=== PATIENT | male | born 1955 | race Caucasian/White ===

== ENCOUNTER 2020-02-08 17:15 | Outpatient (REF) | payer OTHER, SELFPAY ==
--- NOTE | 2020-02-08 | CT_ITS ---
EXAMINATION: CT CHEST SCREENING CLINICAL INFORMATION: Current smoker for greater than 40 years. COMPARISON: None. TECHNIQUE: Multidetector volumetric CT imaging of the chest is performed without contrast using low dose technique. Additional 2D coronal and sagittal reformatted images and axial 3D maximum intensity projection (MIP) images are generated on the CT workstation. This CT examination was performed using dose optimization techniques as appropriate, variously including the following: *Automated exposure control *Adjustment of mA and/or kV according to patient size (this includes techniques or standardized protocols for targeted exams where dose is matched to indication/reason for exam; i.e. extremities or head) *Use of iterative reconstruction technique DLP: 54 mGy-cm FINDINGS: LUNGS: The lungs are well expanded and clear of acute pneumonic process. There is a 4 mm nodule left lower lobe lateral basal segment image 461/6. No additional pulmonary nodules, mass or consolidation seen. MEDIASTINUM: The thyroid lobes are symmetrical and normal. The central trachea and the bronchi are widely patent. Heart size and the great vessels are normal caliber. There are small shotty lymph nodes in the mediastinum. Trace coronary artery calcifications are present. No pericardial effusion seen. PLEURA: There is no pleural effusion, mass or thickening. AXILLA: No lymphadenopathy. UPPER ABDOMEN: Visualized liver, spleen, pancreas and bilateral adrenal glands are unremarkable. OSSEOUS STRUCTURES: No lytic or sclerotic process seen. CT/CT lung screening IMPRESSION: 4 mm nodule left lower lobe. ASSESSMENT: Lung-RADS category 2: Benign RECOMMENDATION: Low dose annual CT chest.
== END 2020-02-08 17:16 | disposition home or self-care (01) ==
LOC: HO.CT 17:15
PROVIDERS: PCP Internal Medicine; Visit Provider Surgery
DX: F17.210 Nicotine dependence, cigarettes, uncomplicated (principal); Z71.6 Tobacco abuse counseling
CPT/HCPCS: 71250

== ENCOUNTER 2020-02-16 | Outpatient (REF) | payer OTHER, SELFPAY ==
[2020-02-16 17:59] LABS: MANUAL DIFF FLAG NO
[2020-02-16 18:01] LABS: Basophils Absolute Auto 0.1 X10*3/uL (0.0-0.2); Basophils Percent Auto 0.9 % (0-2); Eosinophils Absolute Auto 0.3 X10*3/uL (0.0-0.4); Eosinophils Percent Auto 3.1 % (0-4); Hematocrit 41.9 % (42-52); Hemoglobin 13.3 g/dl (14.0-18.0); Imm Gran Abs Auto 0.02 X10*3/uL (0.00-0.03); Imm Gran Pct Auto 0.2 % (0.0-0.4); Lymphocytes Absolute Auto 4.3 X10*3/uL (1.2-4.9); Lymphocytes Percent Auto 40.7 % (20-40); Mean Corpuscular HGB Conc 31.7 g/dl (31.0-36.0); Mean Corpuscular Volume 94.6 fL (80-98); Mean Platelet Volume 9.8 fL (9.4-12.4); Monocytes Absolute Auto 1.2 X10*3/uL (0.1-1.2); Monocytes Percent Auto 11.3 % (2-11); Neutrophils Absolute Auto 4.6 X10*3/uL (2.0-8.3); Neutrophils Percent Auto 43.8 % (45-73); Platelet Count 248 X10*3/uL (160-400); Red Blood Count 4.43 X10*6/uL (4.60-5.80); Red Cell Distribution Width 13.8 % (11.0-16.0); White Blood Count 10.6 X10*3/uL (4.8-10.8)
[2020-02-16 18:22] LABS: Alanine Aminotransferase 25 U/L (0-40); Alkaline Phosphatase 102 U/L (39-117); Anion Gap 14 (12-20); Aspartate Amino Transferase 33 U/L (5-37); Bilirubin Total 0.4 mg/dL (0.0-1.0); Blood Urea Nitrogen 31 mg/dL (9-16); Calcium 8.8 mg/dL (8.4-10.2); Carbon Dioxide 32 mmol/L (22-29); Chloride 103 mmol/L (96-108); Cholesterol 149 mg/dL; Estimated Glomerular Filt Rate 38; Glucose Random 112 mg/dL (60-115); HDL Cholesterol 62 mg/dL; LDL Cholesterol Calculated 78 mg/dl; Potassium 4.8 mmol/l (3.3-5.1); Sodium 144 mmol/L (135-145); Total Protein 6.4 g/dL (6.5-8.0); Triglycerides 48 mg/dL
[2020-02-16 18:43] LABS: Prostate Specific Antigen 0.97 ng/mL (<0.05-4.0)
== END 2020-02-16 10:53 ==
LOC: HO.LAB
PROVIDERS: PCP Internal Medicine; Visit Provider Internal Medicine
DX: Z00.00 Encounter for general adult medical examination without abnormal findings (principal); R91.1 Solitary pulmonary nodule; Z13.31 Encounter for screening for depression; Z86.010 Personal history of colon polyps; Z72.0 Tobacco use
CPT/HCPCS: 36415; 80053; 80061; 84153; 85025

== ENCOUNTER 2020-04-20 15:45 | Outpatient (REF) | payer OTHER, SELFPAY ==
[2020-04-20 16:35] LABS: Hematocrit 40.6 % (42-52); Hemoglobin 13.4 g/dl (14.0-18.0); Mean Corpuscular Hemoglobin 30.4 pg (27.0-33.0); Mean Corpuscular Volume 92.1 fL (80-98); Mean Platelet Volume 9.8 fL (9.4-12.4); Platelet Count 229 X10*3/uL (160-400); Red Blood Count 4.41 X10*6/uL (4.60-5.80); White Blood Count 10.8 X10*3/uL (4.8-10.8)
[2020-04-20 16:44] LABS: Prothrombin Time 11.8 SEC (10.8-13.0)
[2020-04-20 16:53] LABS: Glucose Urine UA NEG (NEG); Leukocyte Esterase Urine NEG (NEG); Nitrite Urine NEG (NEG); Specific Gravity - Urine 1.025 (1.005-1.025); Urine Blood NEG (NEG); Urine Ketones NEG (NEG); Urine Protein NEG (NEG-TRACE)
[2020-04-20 16:56] LABS: Anion Gap 11 (12-20); Blood Urea Nitrogen 27 mg/dL (9-16); Calcium 8.6 mg/dL (8.4-10.2); Carbon Dioxide 31 mmol/L (22-29); Chloride 102 mmol/L (96-108); Estimated Glomerular Filt Rate 53; Potassium 4.7 mmol/L (3.3-5.1); Sodium 139 mmol/L (135-145); Uric Acid 5.3 mg/dL (3.4-7.0)
[2020-04-20 17:01] LABS: Appearance Urine CLEAR; Color Urine YELLOW
[2020-04-20 17:18] LABS: Prostate Specific Antigen 0.52 ng/mL (<0.05-4.0)
[2020-04-20 17:48] LABS: Creatinine Urine 124.66 mg/dL; Total Protein Urine Random < 7 mg/dL (<12)
[2020-04-21 11:42] LABS: Alpha Fetoprotein 1.3 ng/mL (<6.1); Complement C3 90 mg/dL (82-185)
[2020-04-21 13:16] LABS: Anti Glomerular Basement Memb <1.0 AI; Myeloperoxidase Antibody <1.0 AI; Prot Elec - Albumin 4.1 g/dL (3.8-4.8); Prot Elec - Alpha1 0.2 g/dL (0.2-0.3); Prot Elec - Alpha2 0.7 g/dL (0.5-0.9); Prot Elec - Beta 1 0.4 g/dL (0.4-0.6); Prot Elec - Beta 2 0.3 g/dL (0.2-0.5); Prot Elec - Gamma 1.1 g/dL (0.8-1.7); Prot Elec - Total Protein 6.7 g/dL (6.1-8.1); Proteinase 3 PR3 Antibodies <1.0 AI
[2020-04-22 08:12] LABS: HBS Num1 0.25 mIU/mL (0-7.99); HIV AB/AG Nonreactive (Nonreactive); HIV Num 1 0.07 S/CO (0.00-0.99); ~Hepatitis B Surface Antibody NONREACTIVE (Nonreactive)
[2020-04-22 08:50] LABS: HBsAGNum1 0.14 S/CO (0.00-0.99); Hepatitis B Surface Antigen Negative (Negative)
[2020-04-22 13:07] LABS: PTHI 72 pg/mL (14-64)
[2020-04-22 22:17] LABS: HCV Log PCR <1.18 NOT DETECTED Log IU/mL (NOT DETECTED); HepC Viral Load <15 NOT DETECTED IU/mL (NOT DETECTED)
[2020-04-23 15:47] LABS: Kappa, Serum 297 mg/dL (176-443); Kappa/Lambda Ratio, Serum 2.18 (1.29-2.55); Lambda, Serum 136 mg/dL (91-240)
== END 2020-04-20 15:46 | disposition home or self-care (01) ==
LOC: HO.LAB 15:45
PROVIDERS: Absent Provider Internal Medicine Nephrology; PCP Internal Medicine; Referring Provider Internal Medicine Nephrology; Visit Provider Internal Medicine
DX: N17.9 Acute kidney failure, unspecified (principal); N18.31 Chronic kidney disease, stage 3a
CPT/HCPCS: 36415; 80051; 81003; 82105; 82306; 82310; 82550; 82565; 83520; 83883; 83970; 84100; 84153; 84155; 84156; 84165; 84520; 84550; 85027; 85610; 86021; 86160; 86706; 87340; 87389; 87522

== ENCOUNTER 2020-11-17 17:03 | Outpatient (REF) | payer OTHER, SELFPAY ==
[2020-11-17 18:24] LABS: Anion Gap 11 (12-20); Blood Urea Nitrogen 23 mg/dL (9-16); Carbon Dioxide 31 mmol/L (22-29); Chloride 104 mmol/L (96-108); Estimated Glomerular Filt Rate 49; Potassium 4.6 mmol/L (3.3-5.1); Sodium 141 mmol/L (135-145)
== END 2020-11-17 17:04 | disposition home or self-care (01) ==
LOC: HO.LAB 17:03
PROVIDERS: PCP Internal Medicine; Visit Provider Internal Medicine Nephrology
DX: N18.31 Chronic kidney disease, stage 3a (principal)
CPT/HCPCS: 36415; 80051; 82310; 82565; 84520

== ENCOUNTER 2021-05-13 08:35 | Outpatient (REF) | payer OTHER, SELFPAY ==
[2021-05-13 08:52] LABS: MANUAL DIFF FLAG NO
[2021-05-13 09:42] LABS: Basophils Absolute Auto 0.1 X10*3/uL (0.0-0.2); Basophils Percent Auto 0.8 % (0-2); Eosinophils Absolute Auto 0.4 X10*3/uL (0.0-0.4); Eosinophils Percent Auto 4.3 % (0-4); Hematocrit 43.8 % (42.0-52.0); Imm Gran Abs Auto 0.03 X10*3/uL (0.00-0.03); Imm Gran Pct Auto 0.3 % (0.0-0.4); Lymphocytes Absolute Auto 2.5 X10*3/uL (1.2-4.9); Lymphocytes Percent Auto 28.6 % (20-40); Mean Corpuscular Hemoglobin 29.9 pg (27.0-33.0); Mean Corpuscular Volume 93.4 fL (80.0-98.0); Mean Platelet Volume 9.6 fL (9.4-12.4); Monocytes Absolute Auto 0.9 X10*3/uL (0.1-1.2); Monocytes Percent Auto 10.3 % (2-11); Neutrophils Absolute Auto 4.8 x10*3/uL (2.0-8.3); Neutrophils Percent Auto 55.7 % (45-73); Platelet Count 259 X10*3/uL (160-400); Red Blood Count 4.69 X10*6/uL (4.60-5.80); Red Cell Distribution Width 13.4 % (11.0-16.0); White Blood Count 8.7 X10*3/uL (4.8-10.8)
[2021-05-13 09:51] LABS: Prothrombin Time 11.7 SEC (9.9-13.0)
[2021-05-13 10:01] LABS: Alanine Aminotransferase 26 U/L (0-40); Albumin Level 4.3 g/dL (3.5-5.0); Alkaline Phosphatase 92 U/L (39-117); Aspartate Amino Transferase 21 U/L (5-37); Bilirubin Direct 0.3 mg/dL (0.0-0.5); Bilirubin Total 0.7 mg/dL (0.0-1.0); Total Protein 7.3 g/dL (6.5-8.0)
[2021-05-17 12:11] LABS: HCV Log PCR <1.18 NOT DETECTED Log IU/mL (NOT DETECTED); HepC Viral Load <15 NOT DETECTED IU/mL (NOT DETECTED)
[2021-05-17 12:22] LABS: Alpha Fetoprotein 1.4 ng/mL (<6.1)
[2021-05-19 18:32] LABS: FIB-ALT 21 U/L (9-46); FIB-Alpha-2-Macroglobulin 282 mg/dL (106-279); FIB-Apolipoprotein A1 161 mg/dL (94-176); FIB-GGT 11 U/L (3-70); FIB-Haptoglobin 201 mg/dL (43-212); FIB-Total Bilirubin 0.7 mg/dL (0.2-1.2); Liver Fibrosis Score 0.32; Liver Fibrosis Stage F1-F2; Nec Inflam Act Grade A0; Nec Inflam Act Score 0.09
== END 2021-05-13 08:36 | disposition home or self-care (01) ==
LOC: HO.LAB 08:35
PROVIDERS: Absent Provider Internal Medicine Nephrology; PCP Internal Medicine; Visit Provider Internal Medicine
DX: N17.9 Acute kidney failure, unspecified (principal); N18.31 Chronic kidney disease, stage 3a; K74.00 Hepatic fibrosis, unspecified; Z86.19 Personal history of other infectious and parasitic diseases
CPT/HCPCS: 36415; 80076; 81596; 82105; 85025; 85610; 87522

== ENCOUNTER 2021-05-25 14:50 | Outpatient (REF) | payer OTHER, SELFPAY | END 2021-05-25 14:51 | disposition home or self-care (01) | LOC: HO.US 14:50 | PROVIDERS: Visit Provider Internal Medicine | DX: Z13.89 Encounter for screening for other disorder (principal) ==

== ENCOUNTER 2021-05-26 08:21 | Outpatient (REF) | payer OTHER, SELFPAY ==
--- NOTE | ~2021-05-26 | US_ITS ---
EXAMINATION: US COMPLETE ABDOMEN WITH LIVER ELASTOGRAPHY CLINICAL INFORMATION: Hepatitis C. Liver fibrosis. COMPARISON: Previous abdominal ultrasound January 2015 TECHNIQUE: Real-time imaging of the abdominal viscera. Noninvasive ultrasound liver fibrosis assessment is performed using Edi ElastPQ point quantification shear wave elastography (2D-SWE) with a C5-2 MHz transducer. Multiple elastography samples are obtained. FINDINGS: PANCREAS: The visualized pancreatic head and body are normal in appearance. The remainder of the pancreas is obscured from visualization by the overlying bowel gas. ABDOMINAL AORTA: The proximal, middle, and distal aortic segments are normal in caliber. INFERIOR VENA CAVA: Visualized portions are normal. LIVER: Normal. The liver demonstrates normal size, contour and echogenicity. No focal lesion or intrahepatic biliary duct dilatation. The right lobe measures 15 cm in length. The left lobe measures 8.5 cm in length. Portal flow is normal/hepatopedal Shear wave liver elastography median stiffness is 1.5 m/s (reference: normal median stiffness is 1.3 m/s or less). IQR/median stiffness to assess sampling precision is 0.09 (reference: good quality data set is IQR/median stiffness of 0.15 or less). GALLBLADDER: Normal. The gallbladder is physiologically distended without evidence of stones, sludge, polyps, wall thickening or pericholecystic fluid. COMMON BILE DUCT: Normal in caliber measuring 0.2 cm in diameter. RIGHT KIDNEY: Normal. No hydronephrosis. No renal calculi or focal parenchymal lesions. The kidney measures 10 cm in maximum dimension. LEFT KIDNEY: There is a 1 cm cyst in the upper pole. No hydronephrosis. No renal calculi or focal parenchymal lesions. The kidney measures 10.7 cm in maximum dimension. SPLEEN: Normal. The spleen measures 7.6 cm in maximum dimension. FREE FLUID: None. US/US abdomen comp w elastography IMPRESSION: 1. Impression normal appearing liver. Small left renal cyst. Limited visualization of the tail of the pancreas. 2. Liver elastography: Adequate liver sampling. In the absence of other known clinical signs, rules out compensated advanced chronic liver disease. REFERENCE: Society of Radiologists in Ultrasound Liver Stiffness Thresholds (2020): LIVER STIFFNESS THRESHOLDS: *Liver Stiffness equal or less than 1.3 m/s: High probability of being normal. *Liver Stiffness less than 1.7 m/s: In the absence of other known clinical signs, rules out compensated advanced chronic liver disease. *Liver Stiffness 1.7-2.1 m/s: Suggestive of compensated advanced chronic liver disease but need further test for confirmation. *Liver Stiffness over 2.1 m/s: Rules in compensated advanced chronic liver disease. *Liver Stiffness over 2.4 m/s: Suggestive of clinically significant portal hypertension. QUALITY OF DATA SET: *IQR/Median value equal or less than 0.15 implies a quality data set. *IQR/Median value over 0.15 implies a poor quality data set. SIGNIFICANT CHANGE FROM PRIOR EXAM: Significant change if liver stiffness measurement is 10% or greater from prior exam. OTHER CONSIDERATIONS: The stage of liver fibrosis may be overestimated in the setting of acute hepatitis, liver inflammation, elevated liver function tests, hepatic vascular congestion, obstructive cholestasis, non-fasting state, and infiltrative diseases such as amyloidosis and lymphoma. In some patients with NAFLD, the liver stiffness thresholds for compensated advanced chronic liver disease may be lower. In causes other than viral hepatitis and NAFLD, liver stiffness thresholds are not well established.
== END 2021-05-26 08:22 | disposition home or self-care (01) ==
LOC: HO.US 08:21
PROVIDERS: PCP Internal Medicine; Visit Provider Internal Medicine
DX: K74.00 Hepatic fibrosis, unspecified (principal); Z86.19 Personal history of other infectious and parasitic diseases
CPT/HCPCS: 76705; 76981

== ENCOUNTER 2021-08-11 15:22 | Outpatient (REF) | payer OTHER, SELFPAY ==
--- NOTE | ~2021-08-11 | CT_ITS ---
EXAMINATION: CT CHEST SCREENING CLINICAL INFORMATION: Current smoker. 55 pack year history. COMPARISON: Previous chest CT most recent January 2020 TECHNIQUE: Multidetector volumetric CT imaging of the chest is performed without contrast using low dose technique. Additional 2D coronal and sagittal reformatted images and axial 3D maximum intensity projection (MIP) images are generated on the CT workstation. This CT examination was performed using dose optimization techniques as appropriate, variously including the following: *Automated exposure control *Adjustment of mA and/or kV according to patient size (this includes techniques or standardized protocols for targeted exams where dose is matched to indication/reason for exam; i.e. extremities or head) *Use of iterative reconstruction technique DLP: 54 mGy-cm FINDINGS: LUNGS: There is evidence of emphysema. There is a 5 mm left lower lobe nodule axial image 421 series 6 that is stable. There is scarring or subsegmental atelectasis in the right middle lobe and lingula. There are scattered areas of airways disease mild bronchial wall thickening. MEDIASTINUM: There are small mediastinal lymph nodes. No enlarged lymph nodes are seen. There is mild coronary artery calcification. The heart size is normal. No pericardial effusion. Normal caliber thoracic aorta. PLEURA: There is no pleural effusion. No pleural mass or thickening. AXILLA: No lymphadenopathy. UPPER ABDOMEN: Diverticulosis of the colon. OSSEOUS STRUCTURES: Mild curvature of the proximal thoracic spine to the left and degenerative changes. CT/CT lung screening IMPRESSION: Emphysema. Stable left lower lobe nodule. Mild airways disease with bronchial wall thickening. ASSESSMENT: Lung-RADS category 2: Benign RECOMMENDATION: Annual low-dose chest CT follow-up recommended.
== END 2021-08-11 15:23 | disposition home or self-care (01) ==
LOC: HO.CT 15:22
PROVIDERS: Visit Provider Physician Assistant Medical
DX: Z12.2 Encounter for screening for malignant neoplasm of respiratory organs (principal); F17.210 Nicotine dependence, cigarettes, uncomplicated
CPT/HCPCS: 71271

== ENCOUNTER 2021-10-05 17:17 | Outpatient (REF) | payer OTHER, SELFPAY ==
[2021-10-05 17:26] LABS: MANUAL DIFF FLAG NO
[2021-10-05 17:30] LABS: Basophils Absolute Auto 0.1 X10*3/uL (0.0-0.2); Basophils Percent Auto 0.8 % (0-2); Eosinophils Absolute Auto 0.4 X10*3/uL (0.0-0.4); Eosinophils Percent Auto 3.4 % (0-4); Hematocrit 40.5 % (42.0-52.0); Hemoglobin 13.4 g/dl (14.0-18.0); Imm Gran Abs Auto 0.02 X10*3/uL (0.00-0.03); Imm Gran Pct Auto 0.2 % (0.0-0.4); Lymphocytes Absolute Auto 4.1 X10*3/uL (1.2-4.9); Lymphocytes Percent Auto 36.5 % (20-40); Mean Corpuscular HGB Conc 33.1 g/dl (31.0-36.0); Mean Corpuscular Hemoglobin 30.3 pg (27.0-33.0); Mean Corpuscular Volume 91.6 fL (80.0-98.0); Mean Platelet Volume 9.4 fL (9.4-12.4); Monocytes Absolute Auto 1.2 X10*3/uL (0.1-1.2); Monocytes Percent Auto 10.6 % (2-11); Neutrophils Absolute Auto 5.4 x10*3/uL (2.0-8.3); Neutrophils Percent Auto 48.5 % (45-73); Platelet Count 256 X10*3/uL (160-400); Red Blood Count 4.42 X10*6/uL (4.60-5.80); Red Cell Distribution Width 13.3 % (11.0-16.0); White Blood Count 11.2 X10*3/uL (4.8-10.8)
[2021-10-05 17:55] LABS: Alanine Aminotransferase 35 U/L (0-40); Alkaline Phosphatase 117 U/L (39-117); Anion Gap 16 (12-20); Aspartate Amino Transferase 26 U/L (5-37); Bilirubin Total 0.3 mg/dL (0.0-1.0); Blood Urea Nitrogen 42 mg/dL (9-16); Calcium 8.6 mg/dL (8.4-10.2); Carbon Dioxide 27 mmol/L (22-29); Chloride 103 mmol/L (96-108); Estimated Glomerular Filt Rate 43; Glucose Random 94 mg/dL (60-115); Potassium 4.3 mmol/L (3.3-5.1); Sodium 142 mmol/L (135-145)
== END 2021-10-05 17:18 | disposition home or self-care (01) ==
LOC: HO.LAB 17:17
PROVIDERS: PCP Internal Medicine; Visit Provider Internal Medicine
DX: I12.9 Hypertensive chronic kidney disease with stage 1 through stage 4 chronic kidney disease, or unspecified chronic kidney disease (principal); N18.32 Chronic kidney disease, stage 3b; K74.00 Hepatic fibrosis, unspecified; Z72.0 Tobacco use
CPT/HCPCS: 36415; 80053; 85025

== ENCOUNTER 2022-04-24 16:10 | Outpatient (REF) | payer OTHER, SELFPAY ==
[2022-04-24 16:27] LABS: Basophils Absolute Auto 0.1 X10*3/uL (0.0-0.2); Basophils Percent Auto 0.8 % (0-2); Eosinophils Absolute Auto 0.4 X10*3/uL (0.0-0.4); Hematocrit 39.3 % (42.0-52.0); Imm Gran Abs Auto 0.03 X10*3/uL (0.00-0.03); Imm Gran Pct Auto 0.3 % (0.0-0.4); Lymphocytes Absolute Auto 4.1 X10*3/uL (1.2-4.9); Lymphocytes Percent Auto 39.7 % (20-40); MANUAL DIFF FLAG NO; Mean Corpuscular HGB Conc 33.1 g/dl (31.0-36.0); Mean Corpuscular Hemoglobin 30.4 pg (27.0-33.0); Mean Corpuscular Volume 91.8 fL (80.0-98.0); Mean Platelet Volume 9.3 fL (9.4-12.4); Monocytes Percent Auto 9.1 % (2-11); Neutrophils Absolute Auto 4.8 x10*3/uL (2.0-8.3); Neutrophils Percent Auto 46.1 % (45-73); Platelet Count 232 X10*3/uL (160-400); Red Blood Count 4.28 X10*6/uL (4.60-5.80); Red Cell Distribution Width 13.2 % (11.0-16.0); White Blood Count 10.4 X10*3/uL (4.8-10.8)
[2022-04-25 08:35] LABS: Alanine Aminotransferase 37 U/L (0-40); Albumin Level 4.1 g/dL (3.5-5.0); Alkaline Phosphatase 113 U/L (39-117); Anion Gap 14 (12-20); Aspartate Amino Transferase 35 U/L (5-37); Bilirubin Total 0.4 mg/dL (0.0-1.0); Blood Urea Nitrogen 25 mg/dL (9-16); Calcium 8.8 mg/dL (8.4-10.2); Carbon Dioxide 29 mmol/L (22-29); Chloride 104 mmol/L (96-108); Cholesterol 175 mg/dL; Estimated Glomerular Filt Rate 51; Glucose Random 92 mg/dL (60-115); HDL Cholesterol 65 mg/dL; LDL Cholesterol Calculated 96 mg/dl; Potassium 4.9 mmol/L (3.3-5.1); Sodium 142 mmol/L (135-145); Total Protein 6.9 g/dL (6.5-8.0); Triglycerides 72 mg/dL
[2022-04-25 08:50] LABS: Prostate Specific Antigen Scr 0.58 ng/mL (<0.05-4.0); Thyroid Stimulating Hormone 2.45 uIU/mL (0.32-4.0)
== END 2022-04-24 16:11 | disposition home or self-care (01) ==
LOC: HO.LAB 16:10
PROVIDERS: Absent Provider Internal Medicine; PCP Internal Medicine; Visit Provider Internal Medicine
DX: Z00.00 Encounter for general adult medical examination without abnormal findings (principal); Z12.5 Encounter for screening for malignant neoplasm of prostate; I12.9 Hypertensive chronic kidney disease with stage 1 through stage 4 chronic kidney disease, or unspecified chronic kidney disease; N18.32 Chronic kidney disease, stage 3b; F17.201 Nicotine dependence, unspecified, in remission; Z86.010 Personal history of colon polyps
CPT/HCPCS: 36415; 80053; 80061; 84153; 84443; 85025

== ENCOUNTER 2022-05-04 14:59 | Outpatient (REF) | payer OTHER, SELFPAY ==
--- NOTE | ~2022-05-04 | US_ITS ---
EXAMINATION: US COMPLETE ABDOMEN WITH LIVER ELASTOGRAPHY CLINICAL INFORMATION: Hepatitis with liver fibrosis. COMPARISON: Ultrasound abdomen 05/26/2021. TECHNIQUE: Real-time imaging of the abdominal viscera. Noninvasive ultrasound liver fibrosis assessment is performed using Edi ElastPQ point quantification shear wave elastography (2D-SWE) with a C5-2 MHz transducer. Multiple elastography samples are obtained. FINDINGS: PANCREAS: Normal. The visualized pancreatic head and body are normal in appearance. The remainder of the pancreas is obscured from visualization by the overlying bowel gas. ABDOMINAL AORTA: The proximal, middle, and distal aortic segments are normal in caliber. INFERIOR VENA CAVA: Visualized portions are normal. LIVER: The liver demonstrates normal size, contour and mild increased echogenicity. No focal lesion or intrahepatic biliary duct dilatation. The right lobe measures 14.2 cm in length. The left lobe measures 9.2 cm in length. Portal flow is hepatopedal. Shear wave liver elastography median stiffness is 1.59 m/s (reference: normal median stiffness is 1.3 m/s or less). IQR/median stiffness to assess sampling precision is 0.11 (reference: good quality data set is IQR/median stiffness of 0.15 or less). GALLBLADDER: Normal. The gallbladder is physiologically distended without evidence of stones, sludge, polyps, wall thickening or pericholecystic fluid. COMMON BILE DUCT: Normal in caliber measuring 0.5 cm in diameter. RIGHT KIDNEY: There is mild pelvic fullness. No renal calculi or focal parenchymal lesions. The kidney measures 10.4 cm in maximum dimension. LEFT KIDNEY: There is mild pelvic fullness. No renal calculi or focal parenchymal lesions. The kidney measures 10.1 cm in maximum dimension. An anechoic cyst upper pole measures 1.6 x 1.0 x 1.3 cm. Previously it measured 1 cm. SPLEEN: Normal. The spleen measures 7.5 cm in maximum dimension. FREE FLUID: None. US/US abdomen comp w elastography IMPRESSION: 1. Slight increase in the left upper pole renal cyst. Mild hepatic steatosis. 2. Liver elastography: Median liver stiffness measures 1.59 m/s. It corresponds to ACLD (ruled out). REFERENCE: Society of Radiologists in Ultrasound Liver Stiffness Thresholds (2019): LIVER STIFFNESS THRESHOLDS: *Liver Stiffness equal or less than 1.3 m/s: High probability of being normal. *Liver Stiffness less than 1.7 m/s: In the absence of other known clinical signs, rules out compensated advanced chronic liver disease. *Liver Stiffness 1.7-2.1 m/s: Suggestive of compensated advanced chronic liver disease but need further test for confirmation. *Liver Stiffness over 2.1 m/s: Rules in compensated advanced chronic liver disease. *Liver Stiffness over 2.4 m/s: Suggestive of clinically significant portal hypertension. QUALITY OF DATA SET: *IQR/Median value equal or less than 0.15 implies a quality data set. *IQR/Median value over 0.15 implies a poor quality data set. SIGNIFICANT CHANGE FROM PRIOR EXAM: Significant change if liver stiffness measurement is 10% or greater from prior exam. OTHER CONSIDERATIONS: The stage of liver fibrosis may be overestimated in the setting of acute hepatitis, liver inflammation, elevated liver function tests, hepatic vascular congestion, obstructive cholestasis, non-fasting state, and infiltrative diseases such as amyloidosis and lymphoma. In some patients with NAFLD, the liver stiffness thresholds for compensated advanced chronic liver disease may be lower. In causes other than viral hepatitis and NAFLD, liver stiffness thresholds are not well established.
[2022-05-04 17:32] LABS: Alanine Aminotransferase 33 U/L (0-40); Albumin Level 4.2 g/dL (3.5-5.0); Alkaline Phosphatase 85 U/L (39-117); Aspartate Amino Transferase 27 U/L (5-37); Bilirubin Direct 0.2 mg/dL (0.0-0.5); Bilirubin Total 0.9 mg/dL (0.0-1.0); Total Protein 7.1 g/dL (6.5-8.0)
[2022-05-07 09:43] LABS: HCV Log PCR <1.18 NOT DETECTED Log IU/mL (NOT DETECTED); HepC Viral Load <15 NOT DETECTED IU/mL (NOT DETECTED)
[2022-05-07 14:24] LABS: Alpha Fetoprotein 1.4 ng/mL (<6.1)
[2022-05-11 00:23] LABS: FIB-ALT 27 U/L (9-46); FIB-Alpha-2-Macroglobulin 278 mg/dL (106-279); FIB-Apolipoprotein A1 163 mg/dL (94-176); FIB-GGT 11 U/L (3-70); FIB-Haptoglobin 137 mg/dL (43-212); FIB-Total Bilirubin 0.7 mg/dL (0.2-1.2); Liver Fibrosis Score 0.36; Liver Fibrosis Stage F1-F2; Nec Inflam Act Grade A0; Nec Inflam Act Score 0.14
== END 2022-05-04 15:00 | disposition home or self-care (01) ==
LOC: HO.US 14:59
PROVIDERS: PCP Internal Medicine; Visit Provider Internal Medicine
DX: B18.2 Chronic viral hepatitis C (principal); K74.00 Hepatic fibrosis, unspecified
CPT/HCPCS: 36415; 76705; 76981; 80076; 81596; 82105; 87522

== ENCOUNTER 2022-07-13 06:12 | Day surgery (SDC) | payer OTHER, SELFPAY ==
--- NOTE | 2022-07-12 09:25 | P.CONAN_ITS ---
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 If so, by whom?: No Are you DNR?: No Advance Directives: No Advance Directives Information Provided: Yes Recently lost weight without trying: No Nutrition Risks: No Nutritional Risk Meds Allergies Allergy/AdvReac Type Severity Reaction Status Date / Time penicillin V Allergy Unknown Verified 08/27/18 00:00 Penicillins [PENICILLINS] Allergy Unknown UNKNOWN Unverified 11/05/19 15:34 SHELLFISH Allergy Severe SWELLING Uncoded 11/05/19 15:34 Home Medications Medication Instructions Recorded Confirmed Last Taken Type hydrochlorothiazide 12.5 mg capsule 12.5 mg PO DAILY 07/11/22 07/13/22 07/12/22 History Exam Exam Date and Time: July 12, [id number] Pertinent Lab Results Pertinent Lab Results: Laboratory Tests 04/24/22 04/24/22 16:14 Unknown WBC 10.4 Hgb 13.0 L Hct 39.3 L Plt Count 232 Sodium 142 Potassium 4.9 Chloride 104 Carbon Dioxide 29 BUN 25 H Creatinine 1.40 Assessment and Plan Assessment Anesthesia Assessment: Chart Reviewed Documented by User: Shahana Mc MD 07/13/22 08:06 HPI - Anesthesia Eval Consult details Narrative: 66yo M for Colonoscopy [facility] Past Medical History Medical History HCV (hepatitis C virus) MRSA (methicillin resistant Staphylococcus aureus) TMJ (dislocation of temporomandibular joint) Family History Family history of problems with anesthesia: No Surgical History Surgical History H/O colonoscopy S/P ACL reconstruction History of Problems with Anesthesia: No Social History Social History 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 If so, by whom?: No Are you DNR?: No Advance Directives: No Advance Directives Information Provided: Yes Recently lost weight without trying: No Nutrition Risks: No Nutritional Risk Meds Allergies Allergy/AdvReac Type Severity Reaction Status Date / Time penicillin V Allergy Unknown Verified 08/27/18 00:00 Penicillins [PENICILLINS] Allergy Unknown UNKNOWN Unverified 11/05/19 15:34 SHELLFISH Allergy Severe SWELLING Uncoded 11/05/19 15:34 Home Medications Medication Instructions Recorded Confirmed Last Taken Type hydrochlorothiazide 12.5 mg capsule 12.5 mg PO DAILY 07/11/22 07/13/22 07/12/22 History Exam Airway Mallampati Class: II TM Dist: >3cm Neck ROM: Full Loose/Missing/Broken Teeth: No Heart: rr Lungs: cta Assessment and Plan Assessment Anesthesia Assessment: Anesthesia Plan Discussed Final Anesthetic Review Family History of Problems with Anesthesia: No History of Problems with Anesthesia: No NPO: Yes ASA Class: II Final Preanesthetic Review: No Changes in Pt Med Stat, Meds/Allgs Chart Reviewed, Consent Obtained/Reviewed and Anes Risks/Benef Reviewed Patient Risk: Low Procedure Risk: Low Anesthetic Plan Anesthetic Plan: GA Disposition: Standard PACU
[2022-07-13 06:46] VITALS: BP 126/82; PULSE 76; RESP 18; TEMP 36.3; O2SAT 98; BMI 19.9
[2022-07-13 08:43] VITALS: BP 91/56; PULSE 73; RESP 18; TEMP 36.4; O2SAT 100
--- NOTE | 2022-07-13 08:43 | P.BOP_ITS ---
Brief Operative Note Date of Service: 07/13/22 Pre-op diagnosis: Screening Post-op diagnosis: other (Polyps) Procedure: Colonoscopy to the cecum with bx/removal of cecal polyp and hot snare polypectomy of proximal rectal polyp Surgeon: Dontrell Caba Anesthesia: MAC Was an Patient Observation Assistant used for this Procedure?: No Estimated blood loss (mL): 2.0 Pathology: other (A. Cecal polyp B. Proximal rectal polyp) Condition: stable Disposition: PACU
[2022-07-13 08:58] VITALS: BP 97/69; PULSE 72; RESP 18; O2SAT 96
--- NOTE | 2022-07-13 09:00 | OP_ITS ---
DATE OF SERVICE: 07/13/2022 SURGEON: Dontrell Caba MD INDICATIONS: The patient presents for evaluation of personal history of tubular adenoma of the colon and colorectal cancer screening. Full consent has been obtained from him for this, including risks of bleeding and perforation. PREOPERATIVE DIAGNOSIS: Personal history of tubular adenoma of the colon and colorectal cancer screening. POSTOPERATIVE DIAGNOSIS: Personal history of tubular adenoma of the colon and colorectal cancer screening, colon polyps, diverticulosis, and internal hemorrhoids. PROCEDURE PERFORMED: Colonoscopy to the cecum with biopsy and removal of polyp, and hot snare polypectomy. ESTIMATED BLOOD LOSS: COMPLICATIONS: ANESTHESIA: Medication Used: Monitored anesthesia care. ASSISTANTS: SPECIMENS: DESCRIPTION OF PROCEDURE: The patient was placed in the left lateral decubitus position. The digital rectal exam revealed no abnormalities. The Olympus video pediatric colonoscope was entered into the rectum and advanced easily to the cecum. Once in the cecum, I did identify normal-appearing cecal pouch other than a 3 mm polyp in the cecum, which was biopsied and completely removed with cold biopsy forceps. The remainder of the cecum including the appendiceal orifice was well visualized and appeared normal. There was transillumination of light deep in the right lower quadrant. The scope was then slowly withdrawn, assessing all mucosal surfaces carefully. Preparation was excellent. In the proximal rectum, was an approximately 1 cm polyp, which was removed in piecemeal fashion by hot snare polypectomy and recovered by suction. The polypectomy site appeared clean, without any sign of residual polyp nor bleeding. I did not visualize any other polyps, colitis, or angiodysplasias. There was a mild amount of sigmoid diverticulosis. In the rectum, scope was retroflexed, visualizing internal hemorrhoids, but no other pathology. The rectal mucosa appeared normal. The scope was straightened and withdrawn from the patient. He tolerated the procedure well and was returned to the recovery area in stable condition. IMPRESSION: 1. Colon polyps. 2. Diverticulosis. 3. Internal hemorrhoids. PLAN: The results of the pathology will be checked. I would recommend a repeat colonoscopy in 5 years. He was advised not to use any aspirin or NSAIDs for 1 week. He should see me in 1 year for followup in regard to his previous history of hepatitis C. MD GEOVANNA Gibbs/KIMBERLY / [phone] [facility] INSANELucy
[2022-07-13 09:13] VITALS: BP 100/78; PULSE 71; RESP 18; TEMP 36.4; O2SAT 95
== END 2022-07-13 09:30 | disposition home or self-care (01) ==
PROVIDERS: PCP Internal Medicine; Visit Provider Internal Medicine
PROC: 0DJD8ZZ Inspection of Lower Intestinal Tract, Via Natural or Artificial Opening Endoscopic (ICD-10-PCS; CPT 45378; principal; 2022-07-13 07:30)
DX: Z12.11 Encounter for screening for malignant neoplasm of colon (principal); Z86.010 Personal history of colon polyps; D12.0 Benign neoplasm of cecum; D12.8 Benign neoplasm of rectum; K57.30 Diverticulosis of large intestine without perforation or abscess without bleeding; K64.8 Other hemorrhoids; B18.2 Chronic viral hepatitis C; K74.00 Hepatic fibrosis, unspecified; Z79.899 Other long term (current) drug therapy; Z88.0 Allergy status to penicillin; Z87.891 Personal history of nicotine dependence; F17.210 Nicotine dependence, cigarettes, uncomplicated
CPT/HCPCS: 45385; 45380; 88305

== ENCOUNTER 2022-11-27 16:29 | Outpatient (REF) | payer OTHER, SELFPAY ==
--- NOTE | ~2022-11-27 | CT_ITS ---
EXAMINATION: CT CHEST SCREENING CLINICAL INFORMATION: Smoker, screening COMPARISON: 08/11/2021 and July 2008 TECHNIQUE: Multidetector volumetric CT imaging of the chest is performed without contrast using low dose technique. Additional 2D coronal and sagittal reformatted images and axial 3D maximum intensity projection (MIP) images are generated on the CT workstation. This CT examination was performed using dose optimization techniques as appropriate, variously including the following: *Automated exposure control *Adjustment of mA and/or kV according to patient size (this includes techniques or standardized protocols for targeted exams where dose is matched to indication/reason for exam; i.e. extremities or head) *Use of iterative reconstruction technique DLP: 72.8 mGy-cm FINDINGS: LUNGS: There are mild changes of centrilobular emphysema and there is stable left lower lobe, partially calcified nodule measuring 0.5 cm , the rest of lungs are clear MEDIASTINUM: The mediastinum is normal. CORONARY ARTERY CALCIFICATION: There are mild coronary artery calcifications. PLEURA: There is no pleural effusion. No pleural mass or thickening. AXILLA: No lymphadenopathy. UPPER ABDOMEN: Unremarkable OSSEOUS STRUCTURES: There are multilevel degenerative changes diffuse osteopenia and mild dextroscoliosis of thoracic spine CT/CT lung screening IMPRESSION: Mild changes of centrilobular emphysema and stable partially calcified nodule in the left lower lobe. ASSESSMENT: Lung-RADS category 2 benign RECOMMENDATION: Annual low dose CT scan of the chest.
== END 2022-11-27 16:30 | disposition home or self-care (01) ==
LOC: HO.CT 16:29
PROVIDERS: PCP Internal Medicine; Visit Provider Physician Assistant Medical
DX: Z12.2 Encounter for screening for malignant neoplasm of respiratory organs (principal); F17.210 Nicotine dependence, cigarettes, uncomplicated
CPT/HCPCS: 71271

== ENCOUNTER 2023-03-18 16:27 | Outpatient (REF) | payer OTHER, SELFPAY ==
[2023-03-18 18:08] LABS: Alanine Aminotransferase 19 U/L (0-40); Alkaline Phosphatase 111 U/L (39-117); Anion Gap 13 (12-20); Aspartate Amino Transferase 22 U/L (5-37); Bilirubin Total 0.3 mg/dL (0.0-1.0); Blood Urea Nitrogen 40 mg/dL (9-16); Calcium 9.4 mg/dL (8.4-10.2); Carbon Dioxide 32 mmol/L (22-29); Chloride 102 mmol/L (96-108); Estimated Glomerular Filt Rate 41; Glucose Random 83 mg/dL (60-115); Potassium 4.6 mmol/L (3.3-5.1); Sodium 142 mmol/L (135-145); Total Protein 7.1 g/dL (6.5-8.0)
== END 2023-03-18 16:28 | disposition home or self-care (01) ==
LOC: HO.LAB 16:27
PROVIDERS: PCP Internal Medicine; Visit Provider Internal Medicine
DX: I12.9 Hypertensive chronic kidney disease with stage 1 through stage 4 chronic kidney disease, or unspecified chronic kidney disease (principal); N18.32 Chronic kidney disease, stage 3b; F17.201 Nicotine dependence, unspecified, in remission
CPT/HCPCS: 36415; 80053

== ENCOUNTER 2023-09-16 11:03 | Outpatient (REF) | payer OTHER, SELFPAY ==
[2023-09-16 13:31] LABS: MANUAL DIFF FLAG NO
[2023-09-16 13:53] LABS: Basophils Absolute Auto 0.1 X10*3/uL (0.0-0.2); Basophils Percent Auto 0.5 % (0-2); Eosinophils Absolute Auto 0.1 X10*3/uL (0.0-0.4); Eosinophils Percent Auto 0.7 % (0-4); Hematocrit 41.2 % (42.0-52.0); Hemoglobin 13.6 g/dl (14.0-18.0); Imm Gran Abs Auto 0.04 X10*3/uL (0.00-0.03); Imm Gran Pct Auto 0.4 % (0.0-0.4); Lymphocytes Absolute Auto 2.4 X10*3/uL (1.2-4.9); Lymphocytes Percent Auto 22.7 % (20-40); Mean Corpuscular Hemoglobin 30.7 pg (27.0-33.0); Mean Platelet Volume 10.2 fL (9.4-12.4); Monocytes Absolute Auto 0.9 X10*3/uL (0.1-1.2); Monocytes Percent Auto 8.8 % (2-11); Neutrophils Absolute Auto 7.2 x10*3/uL (2.0-8.3); Neutrophils Percent Auto 66.9 % (45-73); Platelet Count 289 X10*3/uL (160-400); Red Blood Count 4.43 X10*6/uL (4.60-5.80); Red Cell Distribution Width 14.8 % (11.0-16.0); White Blood Count 10.7 X10*3/uL (4.8-10.8)
[2023-09-16 14:09] LABS: Creatinine Urine 135.76 mg/dL; Microalbum/Creatinine Ratio Ur 34.6 ug/mg cr (<30)
[2023-09-16 14:18] LABS: Alanine Aminotransferase 19 U/L (0-40); Albumin Level 4.2 g/dL (3.5-5.0); Alkaline Phosphatase 78 U/L (39-117); Anion Gap 10 (12-20); Aspartate Amino Transferase 21 U/L (5-37); Bilirubin Total 0.8 mg/dL (0.0-1.0); Blood Urea Nitrogen 26 mg/dL (9-16); Calcium 9.3 mg/dL (8.4-10.2); Carbon Dioxide 32 mmol/L (22-29); Chloride 101 mmol/L (96-108); Cholesterol 157 mg/dL (<200); Estimated Glomerular Filt Rate 51; Glucose Random 99 mg/dL (60-115); HDL Cholesterol 61 mg/dL (>40); LDL Cholesterol Calculated 88 mg/dL (<100); Potassium 3.4 mmol/L (3.3-5.1); Sodium 140 mmol/L (135-145); Total Protein 7.3 g/dL (6.5-8.0); Triglycerides 42 mg/dL (<150)
== END 2023-09-16 11:04 | disposition home or self-care (01) ==
LOC: HO.10HDL 11:03
PROVIDERS: Visit Provider Internal Medicine
DX: I12.9 Hypertensive chronic kidney disease with stage 1 through stage 4 chronic kidney disease, or unspecified chronic kidney disease (principal); N18.32 Chronic kidney disease, stage 3b; Z72.0 Tobacco use; Z86.010 Personal history of colon polyps
CPT/HCPCS: 36415; 80053; 80061; 82043; 82570; 85025

== ENCOUNTER 2023-11-05 09:18 | Outpatient (REF) | payer OTHER, SELFPAY ==
[2023-11-05 10:29] LABS: Alanine Aminotransferase 18 U/L (0-40); Albumin Level 4.1 g/dL (3.5-5.0); Alkaline Phosphatase 106 U/L (39-117); Anion Gap 11 (12-20); Aspartate Amino Transferase 19 U/L (5-37); Bilirubin Total 0.5 mg/dL (0.0-1.0); Blood Urea Nitrogen 17 mg/dL (9-16); Calcium 9.1 mg/dL (8.4-10.2); Carbon Dioxide 31 mmol/L (22-29); Chloride 107 mmol/L (96-108); Estimated Glomerular Filt Rate 54; Glucose Random 122 mg/dL (60-115); Potassium 4.6 mmol/L (3.3-5.1); Sodium 144 mmol/L (135-145); Total Protein 7.1 g/dL (6.5-8.0)
== END 2023-11-05 09:19 | disposition home or self-care (01) ==
LOC: HO.LAB 09:18
PROVIDERS: PCP Internal Medicine; Visit Provider Internal Medicine
DX: I83.90 Asymptomatic varicose veins of unspecified lower extremity (principal); J44.9 Chronic obstructive pulmonary disease, unspecified; N18.32 Chronic kidney disease, stage 3b; R60.0 Localized edema; Z72.0 Tobacco use
CPT/HCPCS: 36415; 80053

== ENCOUNTER 2023-11-18 10:52 | Emergency (ER) | payer OTHER, SELFPAY ==
--- NOTE | ~2023-11-18 | XR_ITS ---
EXAMINATION: XR BILATERAL KNEES CLINICAL INDICATION: Knee pain, patient states fell on hard floor yesterday. Pain is greater on the left knee than right. COMPARISON: April 21, 2018 TECHNIQUE: AP and lateral views of the right knee. AP and lateral views of the left knee. FINDINGS: RIGHT KNEE: Expected postsurgical changes of right ACL reconstruction again seen. Mild chondrocalcinosis of the medial and lateral compartments and medial amorphous calcifications along the central and posterior aspect of the knee. Compartments with mild degenerative changes. Small joint effusion. Amorphous calcifications along the posterior aspect of the right knee. LEFT KNEE: Expected postsurgical changes of ACL reconstruction redemonstrated. Small joint effusion. Chondrocalcinosis of the medial and lateral compartments. Small marginal osteophytes and mild narrowing of the medial compartment. Amorphous calcifications along the posterior aspect of the right knee. XR/XR knee RT 2V IMPRESSION: 1. Expected postsurgical changes of bilateral ACL reconstruction. 2. Chondrocalcinosis of bilateral knees. 3. Mild degenerative changes in the bilateral knees. 4. Amorphous calcifications along the posterior aspect of the knees bilaterally. Electronically signed by: Veronica Loera MD 11/18/2023 01:32 PM EDT
--- NOTE | ~2023-11-18 | US_ITS ---
EXAMINATION: US TRIPLEX LOWER EXTREMITY, BILATERAL CLINICAL INFORMATION: Bilateral lower extremity swelling. COMPARISON: None available. TECHNIQUE: Color-flow triplex imaging with spectral analysis and compression Doppler were performed on the bilateral lower extremities. FINDINGS: Respiratory variation, normal compression and augmented flow are noted throughout the bilateral lower extremities. The visualized common femoral vein, superficial femoral vein, profunda femoral vein, popliteal vein and midcalf peroneal and posterior tibial venous segments show no evidence of deep venous thrombosis bilaterally. Incidental left inguinal lymph node measures 1.7 x 0.5 x 1.6 cm. US/US venous duplex LE BI IMPRESSION: No evidence of deep venous thrombosis involving the bilateral lower extremities. Electronically signed by: Franck Merlos MD 11/18/2023 01:06 PM EDT
--- NOTE | ~2023-11-18 | XR_ITS ---
EXAMINATION: XR BILATERAL KNEES CLINICAL INDICATION: Knee pain, patient states fell on hard floor yesterday. Pain is greater on the left knee than right. COMPARISON: April 21, 2018 TECHNIQUE: AP and lateral views of the right knee. AP and lateral views of the left knee. FINDINGS: RIGHT KNEE: Expected postsurgical changes of right ACL reconstruction again seen. Mild chondrocalcinosis of the medial and lateral compartments and medial amorphous calcifications along the central and posterior aspect of the knee. Compartments with mild degenerative changes. Small joint effusion. Amorphous calcifications along the posterior aspect of the right knee. LEFT KNEE: Expected postsurgical changes of ACL reconstruction redemonstrated. Small joint effusion. Chondrocalcinosis of the medial and lateral compartments. Small marginal osteophytes and mild narrowing of the medial compartment. Amorphous calcifications along the posterior aspect of the right knee. XR/XR knee LT 2V IMPRESSION: 1. Expected postsurgical changes of bilateral ACL reconstruction. 2. Chondrocalcinosis of bilateral knees. 3. Mild degenerative changes in the bilateral knees. 4. Amorphous calcifications along the posterior aspect of the knees bilaterally. Electronically signed by: Veronica Loera MD 11/18/2023 01:32 PM EDT
[2023-11-18 10:55] VITALS: PULSE 160; RESP 20; TEMP 36.3; O2SAT 96; BMI 18.8
--- NOTE | 2023-11-18 11:03 | ECG_ITS ---
Test Reason : TACHYCARDIA Blood Pressure : / mmHG Vent. Rate : 161 BPM Atrial Rate : 000 BPM P-R Int : 000 ms QRS Dur : 070 ms QT Int : 278 ms P-R-T Axes : 000 032 054 degrees QTc Int : 454 ms Supraventricular tachycardia Abnormal ECG No previous ECGs available Referred By: Generic ED Physician Electronically Signed By:GHADA FAUST
--- NOTE | 2023-11-18 11:22 | ED_ITS ---
HPI - General Adult General Chief complaint: Fall Stated complaint: Fall bilateral knee pain Time Seen by Provider: 11/18/23 11:25 Source: patient Mode of arrival: ambulatory Limitations: no limitations History of Present Illness ED Provider: Reggie CALVIN HPI narrative: This is a 67-year-old male history of hepatitis C, nicotine dependence, HTN presents w/ b/l knee pain, neck pain, headache X 1 day s/p slip and fall reports slipped on liquis on the floor, lower extremity swelling b/l X 1 year and palpitations, chest discomfort since this morning he does admit to cocaine use and this started shortly after. While in triage he was noted to have a high heart rate w/ rate in the 160's --> EKG done showing SVT --> brought into the ED. He reports this has never happened to him beofore. Denies any other drugs and alchol. He denies nausea, vomiting, visual changes, dizziness, weakness, abd pain, numbness, tingling, urinary/bowel incontinence/ retention. Related Data Home Medications ?Medication ?Instructions ?Recorded ?Confirmed hydrochlorothiazide 12.5 mg capsule 12.5 mg PO DAILY 07/11/22 07/13/22 Allergies Allergy/AdvReac Type Severity Reaction Status Date / Time Penicillins [PENICILLINS] Allergy Unknown UNKNOWN Verified 11/18/23 10:59 SHELLFISH Allergy Severe SWELLING Uncoded 11/18/23 10:59 Review of Systems 2 Review of Systems: Yes all other systems are reviewed and are negative PMFSH Past Medical History Attestation statement: The following information was validated with the patient. Source: old records reviewed and nursing notes reviewed Medical History HCV (hepatitis C virus) Nicotine dependence, cigarettes, uncomplicated MRSA (methicillin resistant Staphylococcus aureus) TMJ (dislocation of temporomandibular joint) Tubular adenoma of colon Surgical History History of liver biopsy History of colonoscopy History of bronchoscopy History of right knee surgery Social History Social History Are you a primary patient care representative to a significant other at home: Yes (takes care of mother) Do you presently have visiting nurse or other home services: Yes (hospice visiting [facility]) Patient Tobacco Use Status: Current everyday Tobacco user Tobacco use type: Cigarette Cigarette Packs Per Day: 0.5 Cigarettes Per Day: 10.0 Smoked in Last 30 Days: Yes Use of substances other than those prescribed or required for medical reasons: Yes Substance Use Type: Crack/Cocaine Substance Use Frequency: Chronic Longstanding Last Used Substance: Just Prior to Admission Advance Directives: No Advance Directives Information Provided: No Physical Exam ED Vital Signs: Vital Signs - 24 hr 11/18/23 10:55 11/18/23 11:44 11/18/23 15:03 Temperature 97.3 F 97.9 F 97.9 F Pulse Rate 160 H 88 88 Respiratory Rate 20 18 18 Blood Pressure 112/79 112/79 Pulse Oximetry 96 97 97 Oxygen Delivery Method Room Air Room Air Room Air BMI result Body Mass Index 18.8 vss Appearance: Alert.? Oriented X3.? No acute distress.? Head: Normocephalic, atraumatic, no step-offs or deformities Eyes: Pupils equal, round and reactive to light.? CVS: Rapid regular rhythm likely sinus tachycardia rate around 150-170.? Pulses normal.? Respiratory: No respiratory distress.? Breath sounds normal.? Abdomen: Soft and nontender.? Skin: Skin warm and dry.? Normal skin color.? Normal skin turgor.? Extremities:1+ pitting edema from knee down b/l. No calf ttp. 5/5 strength to bilateral upper and lower extremities Back: No midline tenderness, no C-spine tenderness, full range of motion, no CVA tenderness bilaterally Neuro: Oriented X 3.? No motor deficit.? No sensory deficit. CN 2-12 intact Course Course Course Narrative: RME, this is a rapid medical exam performed by Alexy Banks please refer to primary provider for complete H&P- 67-year-old male presents for evaluation of left knee pain. He was found to be tachycardic to 160 in triage, an EKG was ordered. Patient denies any history of arrhythmias. He does complain of shortness of breath, especially with exertion. He recently finished a course of antibiotics for upper respiratory infection. Plan for labs, EKG. Further evaluation and management will be directed by primary ER provider Reevaluation(s) Reevaluation #1: CBC with slight leukocytosis 13.6 this is likely reactive secondary to SVT and or fall. Unlikely infectious in origin. Chemistry no acute findings needing intervention. Troponin pending. BNP mildly elevated this could be due to SVT. No signs of fluid overload on exam. Coags unremarkable. Venous duplex no evidence of DVT in bilateral lower extremities. Knee x-ray mild degenerative changes amorphous calcifications, chondrocalcinosis of bilateral knees and postsurgical changes as expected after bilateral ACL reconstruction no acute findings noted no signs that this is secondary to acute trauma. Time: 14:33 Reevaluation #2: Patient had asked to leave multiple times prior to getting CT of head, cervical spine, chest, abdomen and pelvis, I have very low suspicion for intra-abdominal or intrathoracic injury. Even lower suspicion for intracranial hemorrhage, stroke posterior stroke patient had normal neurological function use ambulatory with steady gait normal coordination neurological exam nonfocal Time: 15:16 Medications Administered Discontinued Medications Generic Name Dose Route Start Last Admin Trade Name Freq PRN Reason Stop Dose Admin Acetaminophen 975 mg 11/18/23 13:41 11/18/23 14:52 Acetaminophen 325 Mg Tablet PO 11/18/23 13:42 Not Given ONCE ONE Adenosine 6 mg 11/18/23 11:25 11/18/23 11:39 Adenosine 6 Mg/2 Ml Vial IVPUSH 11/18/23 11:26 6 mg STAT STA Administration Medical Decision Making Medical Decision Making [facility] Narrative: 67-year-old male presents with knee pain status post slip and fall, lower extremity swelling and palpitations and chest pain. All of which have been going on for different amount of time. Please refer to HPI for full details. Pe 1+ pitting edema from knee down b/l. No calf ttp. 5/5 strength to bilateral upper and lower extremities, tachycardia noted History and physical exam concerning for SVT likely precipitated by cocaine use. Lower extremity edema likely dependent and chronic in nature. Less likely acute venous or arterial thrombus. I do not suspect acute threat to [place], neurovascular compromise. Neck pain likely cervical strain due to fall unlikely cauda equina, cord compression, cervical myelopathy, fracture, dislocation, traumatic subluxation. Headache likely concussion from fall unlikely intracranial hemorrhage, stroke, posterior stroke. Knee pain likely contusions versus strain or sprain. Unlikely fracture, dislocation, neurovascular compromise, acute threat to limb. Immediately when patient went into the room adenosine was given for SVT. One dose of 6 mg IV was given with good response. Differential Diagnosis Differential Diagnoses: The differential diagnosis associated with the presentation includes (History and physical exam concerning for SVT likely precipitated by cocaine use. Lower extremity edema likely dependent and chronic in nature. Less likely acute venous or arterial thrombus. I do not suspect acute threat to [place], neurovascular compromise. Neck pain likely cervical strain due to fa) Admission/Observation Consideration of admission/observation: Escalation of care including admission/observation considered Lab Data MDM Lab Attestation statement: I reviewed the patient's lab results. 11/18/23 13:41 11/18/23 13:41 Labs: Lab Results 11/18/23 11/18/23 Range/Units 11:27 13:41 WBC 13.3 H (4.8-10.8) X10*3/uL RBC 4.40 L (4.60-5.80) X10*6/uL Hgb 13.6 L (14.0-18.0) g/dl Hct 41.5 L (42.0-52.0) % MCV 94.3 (80.0-98.0) fL MCH 30.9 (27.0-33.0) pg MCHC 32.8 (31.0-36.0) g/dl RDW 15.4 (11.0-16.0) % Plt Count 225 (160-400) X10*3/uL MPV 9.5 (9.4-12.4) fL Immature Gran % (Auto) 0.5 H (0.0-0.4) % Neut % (Auto) 80.3 H (45-73) % Lymph % (Auto) 12.5 L (20-40) % [place] % (Auto) 6.5 (2-11) % Eos % (Auto) 0.0 (0-4) % Baso % (Auto) 0.2 (0-2) % Lymph # (Auto) 1.7 (1.2-4.9) X10*3/uL [place] # (Auto) 0.9 (0.1-1.2) X10*3/uL Eos # (Auto) 0.0 (0.0-0.4) X10*3/uL Baso # (Auto) 0.0 (0.0-0.2) X10*3/uL Abs Immat Gran (auto) 0.06 H (0.00-0.03) X10*3/uL Absolute Neuts (auto) 10.7 H (2.0-8.3) x10*3/uL Absolute Nucleated RBC 0.000 (0.0-0.012) X10*3/uL Nucleated RBC % (auto) 0.0 (0.0-0.2) /100WBC PT 10.9 (10.9-12.4) SEC INR 0.9 (0.9-1.1) Sodium 142 (135-145) mmol/L Potassium 4.5 (3.3-5.1) mmol/L Chloride 109 H (96-108) mmol/L Carbon Dioxide 25 (22-29) mmol/L Anion Gap 13 (12-20) BUN 27 H (9-16) mg/dL Creatinine 1.23 (0.5-1.4) mg/dL Estim Creat Clear Calc 56.2 Estimated GFR 59 Random Glucose 104 (60-115) mg/dL Calcium 8.5 D (8.4-10.2) mg/dL Magnesium 1.8 (1.6-2.6) mg/dL Total Bilirubin 0.7 (0.0-1.0) mg/dL AST 35 (5-37) U/L ALT 38 (0-40) U/L Alkaline Phosphatase 83 (39-117) U/L Troponin I High Sens 14.3 (<3.5-35.0) ng/L B-Natriuretic Peptide 175 H (<100) pg/mL Total Protein 6.6 (6.5-8.0) g/dL Albumin 3.9 (3.5-5.0) g/dL Lipase 13 (8-78) U/L Independent Interpretation I performed an independent interpretation of an: EKG (Vent. Rate : 161 BPM Atrial Rate : 000 BPM P-R Int : 000 ms QRS Dur : 070 ms QT Int : 278 ms P-R-T Axes : 000 032 054 degrees QTc Int : 454 ms Supraventricular tachycardia Abnormal ECG No previous ECGs available ), Plain X-Ray (7 XR/XR knee RT 2V IMPRESSION: 1. Expected postsurgical changes of bilateral ACL reconstruction. 2. Chondrocalcinosis of bilateral knees. 3. Mild degenerative changes in the bilateral knees. 4. Amorphous calcifications along the posterior aspect of the knees bilaterally.) and Ultrasound ( US/US venous duplex LE BI IMPRESSION: No evidence of deep venous thrombosis involving the bilateral lower extremities. ) Critical Care Time Critical Care Time Critical Care Time: No Discharge Plan Discharge Clinical Impression: SVT (supraventricular tachycardia), Cocaine abuse, Knee pain, Leg edema, Left against medical advice Patient Disposition: Left Against Medical Advice Instructions: Supraventricular Tachycardia (ED), Cocaine Abuse (ED), Valsalva Maneuver (ED), Leg Edema (ED), Knee Pain (ED), Against Medical Advice (ED) Additional Instructions: Take your medications as prescribed. If you were prescribed antibiotics today, it is important that you take your medication to their entirety, do not skip any doses, do not finish them early. Follow-up with your primary care provider this week. Return to the emergency department with new or worsening symptoms. Such as fevers, chills, chest pain, shortness of breath, nausea, vomiting, dizziness, headache, vision changes, lethargy In case of emergency call 911 Patient decided to leave against medical advice. I took the time to go over risks of leaving against medical advice including . Patient verbalizes understanding of this. Advised them to come back if they change their mind. US/US venous duplex LE BI IMPRESSION: No evidence of deep venous thrombosis involving the bilateral lower extremities. XR/XR knee RT 2V IMPRESSION: 1. Expected postsurgical changes of bilateral ACL reconstruction. 2. Chondrocalcinosis of bilateral knees. 3. Mild degenerative changes in the bilateral knees. 4. Amorphous calcifications along the posterior aspect of the knees bilaterally. Prescriptions: No Action hydrochlorothiazide 12.5 mg capsule 12.5 mg PO DAILY Referrals: [facility] – [place] [facility] [Provider Group] - 2 days Flor Chandra MD [Primary Care Provider] - 2 days Stand Alone Forms: Against Medical Advice Interventions: ED Discharge Assessment Last Done: 11/18/23 15:03 Discharge Date/Time: 11/18/23 15:04 Print Language: Citizen Of [place]
[2023-11-18] MEDS: Adenosine 6 MG/2 ML VIAL IVPUSH (11:39)
[2023-11-18 11:44] VITALS: BP 112/79; PULSE 88; RESP 18; TEMP 36.6; O2SAT 97
[2023-11-18 11:53] LABS: INTERNATIONAL NORM RATIO 0.9 (0.9-1.1); Prothrombin Time 10.9 SEC (10.9-12.4)
--- NOTE | 2023-11-18 11:53 | PC.NURSE ---
Pt comes from home for a recent fall out grocery shopping. In triage pt was found to have a HR in the 160-170s. Pt immediately brought back to ED bed 8, GINA [place] made aware of pt HR. 20g IV placed in left AC, 18g IV placed in right ac, EKG and labs obtained and sent to lab. Pt states no cp/palpitations/sob while HR in the 160s. Pt admits to using 1g of cocaine this morning and states he has a chronic use of this. Code cart at bedside and pt placed on pacer pads. Vagal maneuvers attempted but were unsuccessful, PA made decision for 6mg Adenosine, pt in agreement. SVT on nurse monitoring, HR 160s, BP 90/70, O2 96% on RA. After 6mg Adenosine pt broke out of SVT and into NSR with HR 80s-90s. Pt endorsing bilateral lower extremity edema x1 month and a hx of CHF. A/ox4, respirations even and unlabored, no increased wob/sob noted, s1 and s2 heard, abdomen soft, non-tender on palpation. Pt stating 7/10 left leg/knee pain after fall, +headstrike, -LOC, -blood thinners. Pt updated on plan for x-rays of knee and to monitor HR. Call bales within reach, all needs met at this time.
[2023-11-18 11:59] LABS: Alkaline Phosphatase 83 U/L (39-117); Bilirubin Total 0.7 mg/dL (0.0-1.0); Carbon Dioxide 25 mmol/L (22-29); Magnesium 1.8 mg/dL (1.6-2.6)
[2023-11-18 13:48] LABS: Basophils Percent Auto 0.2 % (0-2); Hematocrit 41.5 % (42.0-52.0); Hemoglobin 13.6 g/dl (14.0-18.0); Imm Gran Abs Auto 0.06 X10*3/uL (0.00-0.03); Imm Gran Pct Auto 0.5 % (0.0-0.4); Lymphocytes Absolute Auto 1.7 X10*3/uL (1.2-4.9); Lymphocytes Percent Auto 12.5 % (20-40); Mean Corpuscular HGB Conc 32.8 g/dl (31.0-36.0); Mean Corpuscular Hemoglobin 30.9 pg (27.0-33.0); Mean Corpuscular Volume 94.3 fL (80.0-98.0); Mean Platelet Volume 9.5 fL (9.4-12.4); Monocytes Absolute Auto 0.9 X10*3/uL (0.1-1.2); Monocytes Percent Auto 6.5 % (2-11); Neutrophils Absolute Auto 10.7 x10*3/uL (2.0-8.3); Neutrophils Percent Auto 80.3 % (45-73); Platelet Count 225 X10*3/uL (160-400); Red Cell Distribution Width 15.4 % (11.0-16.0); White Blood Count 13.3 X10*3/uL (4.8-10.8)
[2023-11-18 13:49] LABS: MANUAL DIFF FLAG NO
[2023-11-18 14:10] LABS: B Type Natriuretic Peptide 175 pg/mL (<100)
[2023-11-18 14:30] LABS: Alanine Aminotransferase 38 U/L (0-40); Albumin Level 3.9 g/dL (3.5-5.0); Anion Gap 13 (12-20); Aspartate Amino Transferase 35 U/L (5-37); Blood Urea Nitrogen 27 mg/dL (9-16); Calcium 8.5 mg/dL (8.4-10.2); Chloride 109 mmol/L (96-108); Creatinine Clr Calc Pharmacy 56.2; Estimated Glomerular Filt Rate 59; Glucose Random 104 mg/dL (60-115); Lipase 13 U/L (8-78); Potassium 4.5 mmol/L (3.3-5.1); Sodium 142 mmol/L (135-145); Total Protein 6.6 g/dL (6.5-8.0)
[2023-11-18 14:38] LABS: Troponin-I High Sensitivity 14.3 ng/L (<3.5-35.0)
[2023-11-18 15:03] VITALS: BP 112/79; PULSE 88; RESP 18; TEMP 36.6; O2SAT 97
== END 2023-11-18 15:04 | disposition left against medical advice (07) ==
PROVIDERS: Physician Assistant; Emergency Provider Emergency Medicine; PCP Internal Medicine
DX: I47.10 Supraventricular tachycardia, unspecified (principal); F14.10 Cocaine abuse, uncomplicated; R60.0 Localized edema; R06.02 Shortness of breath; M79.605 Pain in left leg; M79.604 Pain in right leg; F17.210 Nicotine dependence, cigarettes, uncomplicated; Z53.29 Procedure and treatment not carried out because of patient's decision for other reasons
CPT/HCPCS: 36415; 73560; 80053; 83690; 83735; 83880; 84484; 85025; 85610; 93005; 93970; 96374; 99285; J0153

== ENCOUNTER 2023-11-28 15:10 | Outpatient (AMB) | payer OTHER, MEDICARE, SELFPAY ==
--- NOTE | 2023-11-28 15:22 | A.OFFVIS_ITS ---
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 Pt states he had a fall a few weeks ago and went to the ED and states they did a R/O DVT which was negative. 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 He was referred by his PCP and ER. He recently was in the ER on 11/17 s/p fall with left knee injury. An US was performed and DVT ruled out. He was placed on Lasix 20mg recently by his PCP for the swelling; however, he states he has not been taking it because he did not know if it would interfere with an abx he was given for a sinus infection s/p Covid. He is currently wearing a knee brace on his left knee and has an appt with Ortho on the for further evaluation. He has also been using a walker to help him get around. He does have a hx of arthroscopy of the left knee for a torn ACL in 1995.He denies any injuries or wounds that occurred prior to the swelling a year ago. He has not been seen for this until recently. He denies any pain in his lower extremities. He states he has been wearing flip flops daily due to the swelling; his sneakers are tight. 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 [facility] Medical History HCV (hepatitis C virus) Nicotine dependence, cigarettes, uncomplicated MRSA (methicillin resistant Staphylococcus aureus) TMJ (dislocation of temporomandibular joint) Tubular adenoma of colon Surgical History History of liver biopsy History of colonoscopy History of bronchoscopy History of right knee surgery Social History Are you a primary career development coordinator/teacher to a significant other at home: Yes (takes care of mother) Do you presently have visiting nurse or other home services: Yes ([facility]osp[facility]) Patient Tobacco Use Status: Current everyday Tobacco user Tobacco use type: Cigarette Cigarette Packs Per Day: 0.5 Cigarettes Per Day: 10.0 Substance Use Type: Crack/Cocaine Review of Systems Const Reports as per HPI and Denies weakness ENT Reports Normal hearing present and Denies dizziness Card Reports as per HPI, Denies chest pain, Denies chest pain at rest, Denies chest pain with activity, Denies dyspnea and Denies dyspnea on exertion Resp Reports as per HPI, Denies cough, Denies dyspnea and Denies dyspnea on exertion GI Reports as per HPI, Denies abdominal pain, Denies nausea and Denies vomiting Musc Denies numbness Skin/Breast Reports as per HPI, Denies erythema and Denies wounds Neuro Reports Normal hearing present, Denies dizziness, Denies numbness, Denies Sensory deficit (Neuro) and Denies weakness Psych Reports no additional complaints Endo Reports no additional complaints Physical Exam Vital Signs: BMI result Body Mass Index 19.5 Const General: healthy appearing and no acute distress Orientation/consciousness: patient oriented x3 HEENT Head: Yes normal to inspection Ears: hearing grossly normal bilaterally Mouth: Normal oral and palatal mucosa present Resp Effort & Inspection: normal respiratory effort and able to speak in complete sentences Auscultation: clear to auscultation bilaterally Cardio Jugular venous distension: no JVD Rate: regular rate Rhythm: regular rhythm Heart sounds: S1 normal heart sound present and S2 normal heart sound present Bruits: no abdominal aortic bruits, no carotid bruits, no femoral bruits and no renal bruits Peripheral pulses: Peripheral pulses 2+ throughout GI Inspection: Yes normal to inspection Palpation (GI): No Abdominal aortic bruit present Skin Other: Bilateral 1+ edema, non pitting. Feet cool to the touch; however it is cold outside and he is wearing flip flops. +DP/PT pulses bilaterally. No wounds/lacerations/erythema noted. CEAP C - 3 edema E - primary etiology A - superficial P - reflux General skin exam: no rashes or lesions noted Wounds: no wounds Hair: normal Neuro General: patient oriented x3 Cranial nerves: Yes CN's II-XII intact bilaterally and Yes Normal hearing present Cognition (Neuro): normal cognition Gait exam (Neuro): Normal gait present Motor exam (neuro): 5/5 motor strength present throughout Sensory Exam: No Sensory deficit (Neuro) Extrem General: Yes normal to inspection, Yes full ROM, Yes capillary refill normal and Yes normal gait Results Reviewed Results Reviewed: US results from 11/17 reviewed. Assessment & Plan Assessment & Plan (1) Varicose veins of both lower extremities with inflammation: Code(s): I83.11 - Varicose veins of right lower extremity with inflammation; I83.12 - Varicose veins of left lower extremity with inflammation Category: Medical Plan Linus is presenting today with concerns of bilateral lower extremity swelling for >1y. There were no precipitating events prior to the swelling. He has had a recent fall with left knee injury on 11/17 and will be following up with Ortho on the . He currently remains very active; however, due to the knee injury he has not been as active. He is a current everyday smoker, smoking 2-10 cigs/day for appx 50y. He is not a diabetic. He was prescribed Lasix but has not been taking it. He has been trying to elevate his legs when he is sitting down. We have ordered a US for further evaluation of bilateral lower extremity swelling. We discussed conservative mgte with compression stockings, elevation, and walking. We discussed that he can do short distances in walking daily. We discussed following up with us after the US is complete. Thank you for allowing us to participate in the pt's care. If there are any questions or concerns, please do not hesitate to contact us. Orders: Orders US venous duplex LE BI 1 Week I83.11 - Varicose veins of right lower extremity with inflammation, I83.12 - Varicose veins of left lower extremity with inflammation Coding Level of Care Code New Pt New Pt Level 4 (59215) New Pt Complex EM visit Add On G2211 Patient Type New Diagnoses Varicose veins of both lower extremities with inflammation I83.11; I83.12 Time Spent (min) 40 Comment Reviewed US from ER. Pt education
[2023-11-28 15:23] VITALS: BMI 19.5
== END 2023-11-28 15:53 | disposition home or self-care (01) ==
PROVIDERS: PCP Internal Medicine; Visit Provider Physician Assistant Surgical
DX: I83.11 Varicose veins of right lower extremity with inflammation (principal); I83.12 Varicose veins of left lower extremity with inflammation
CPT/HCPCS: 99204

== ENCOUNTER → 2023-11-28 15:10 | Outpatient (BNVA) | payer OTHER, SELFPAY | PROVIDERS: PCP Internal Medicine; Visit Provider Surgery Vascular Surgery ==

== ENCOUNTER 2023-12-06 08:20 | Outpatient (REF) | payer OTHER, MEDICARE, SELFPAY ==
--- NOTE | ~2023-12-06 | US_ITS ---
EXAMINATION: US VENOUS BILATERAL LOWER EXTREMITIES (REFLUX EXAM) CLINICAL INDICATION: Leg pain and varicose veins. COMPARISON: DVT study 11/18/2023 TECHNIQUE: Color flow triplex imaging and compression Doppler was performed to evaluate both the deep and the superficial systems bilaterally. To evaluate the superficial system, the examination was performed in the upright position. Color-flow Doppler ultrasound and compression ultrasound were utilized. In addition, maneuvers were utilized to demonstrate reflux. FINDINGS: 1. DEEP VENOUS ULTRASOUND OF THE RIGHT LOWER EXTREMITY: Respiratory variation, normal compression and augmented flow are noted in the right common femoral vein as well as the right popliteal vein and there is no evidence of deep venous thrombosis at these locations. There is no evidence of reflux in the deep system in either the common femoral vein or the popliteal vein. There is no evidence of a Persaud's cyst. 2. SUPERFICIAL ULTRASOUND WITH DOPPLER OF RIGHT LOWER EXTREMITY: The right great saphenous vein at the saphenofemoral junction measures 6 mm, at the proximal thigh 3 mm, at the mid thigh 2 mm, above the knee 3 mm, at the knee 2 mm, [id number] 9 mm, midcalf 6 mm and at the ankle measures 2 mm. There is a small duplication below the knee of the great saphenous vein that measures 2 mm. There is reflux present in the great saphenous vein from just below the junction to the ankle with reflux times of greater than 3 seconds. Duplicated Right Great Saphenous Vein: A portion is duplicated as described above The right small saphenous vein measures 8 mm and shows no reflux. Accessory Vein of Giacomini: None Incompetent Perforators: None Varices Present: None 3. DEEP VENOUS ULTRASOUND OF THE LEFT LOWER EXTREMITY: Respiratory variation, normal compression and augmented flow are noted in the left common femoral vein as well as the left popliteal vein and there is no evidence of deep venous thrombosis at these locations. There is no evidence of reflux in the deep system in either the common femoral vein or the popliteal vein. The left gastrocnemius vein is quite dilated and prominent. There is no evidence of a Persaud's cyst. There is an area of shadowing and twinkle artifact in the left distal calf which could represent a calcified varix. In the proximal anterior calf in the area of a palpable lump, there is a 2.5 x 0.6 x 2.0 cm ovoid mass that has the appearance of a lipoma. 4. SUPERFICIAL ULTRASOUND WITH DOPPLER OF LEFT LOWER EXTREMITY: Left great saphenous vein at the saphenofemoral junction measures 7 mm, at the proximal thigh 3 mm, at the mid thigh 3 mm, above the knee 2 mm, at the knee 3 mm, [id number] 1 mm, midcalf 1 mm and at the ankle measures 2 mm. There is 0.6 seconds of reflux present ankle only. Duplicated Left Great Saphenous Vein: None The left small saphenous vein measures 2 mm and shows no reflux. Accessory Vein of Giacomini: None Incompetent Perforators: None. Varices Present: 0.4 cm varix noted in the mid calf US/US venous insuf bilat IMPRESSION: 1. No evidence of reflux or thrombus in the common femoral veins or popliteal veins bilaterally. 2. The right great saphenous vein is incompetent from just below the saphenofemoral junction to the ankle. 3. The left great saphenous vein is competent with reflux at the ankle only. 4. There is a 0.4 cm varix in the left mid calf. 5. There is a 2.5 cm lipoma in the proximal anterior calf in the area of a palpable lump. Electronically signed by: Izaiah De Oliveira MD 12/08/2023 10:32 AM EDT
== END 2023-12-06 08:21 | disposition home or self-care (01) ==
LOC: HO.US 08:20
PROVIDERS: PCP Internal Medicine; Visit Provider Physician Assistant Surgical
DX: I83.11 Varicose veins of right lower extremity with inflammation (principal); I83.12 Varicose veins of left lower extremity with inflammation
CPT/HCPCS: 93970

== ENCOUNTER 2023-12-12 10:51 | Outpatient (AMB) | payer OTHER, MEDICARE, SELFPAY ==
--- NOTE | 2023-12-12 10:52 | A.OFFVIS_ITS ---
Intake Visit Reasons: TELE - left knee MRI review Intake Note: Linus a 68 year old male who presents today as a new patient for a left knee MRI review. MRI done at [facility]. Allergies Penicillins [PENICILLINS] Allergy (Unknown, Verified 11/28/23 15:28) UNKNOWN SHELLFISH Allergy (Severe, Uncoded 11/28/23 15:28) SWELLING HPI HPI TELE - left knee MRI review: Details: 68 yo male telehealth left knee, new problem. He has been seen by Dr Berger over 3 years ago for the right knee. He states the left knee he had an injury, slip and fall on a wet floor 11/17/23. He was in [place] and slipped on a wet floor and he felt his knee hyperextend. He was seen in the ED the following day, xrays obtained and he was referred to our office for ortho eval. [facility] Medical History HCV (hepatitis C virus) Nicotine dependence, cigarettes, uncomplicated MRSA (methicillin resistant Staphylococcus aureus) TMJ (dislocation of temporomandibular joint) Tubular adenoma of colon Surgical History History of liver biopsy History of colonoscopy History of bronchoscopy History of right knee surgery Social History Are you a primary urgent care nurse practitioner to a significant other at home: Yes (takes care of mother) Do you presently have visiting nurse or other home services: Yes ([facility]) Patient Tobacco Use Status: Current everyday Tobacco user Tobacco use type: Cigarette Cigarette Packs Per Day: 0.5 Cigarettes Per Day: 10.0 Substance Use Type: Crack/Cocaine Review of Systems Const All systems reviewed & are unremarkable except as noted in HPI and below Physical Exam Resp Effort & Inspection: normal respiratory effort and able to speak in complete sentences Telehealth Telehealth Patient verbally consented to treatment: Yes Patient verbally consented to billing insurance company: Yes Patient informed of any privacy concerns related to visit: Yes Results Reviewed Results Reviewed: IMPRESSION: 1. Mildly comminuted nondisplaced fracture proximal fibula. 2. Postsurgical change from ACL reconstruction with attenuated graft likely related to chronic partial tearing with graft insufficiency. 3. Attenuated medial meniscus likely related to prior partial meniscectomy. There is meniscal-like tissue extending into the super meniscal recess anteriorly likely displaced attached meniscal fragment. No comparative studies available. 4. 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 5. Grade 1 MCL injury. Moses Kellogg MD Signed by Moses Kellogg MD Assessment & Plan Assessment & Plan (1) Left knee pain: Code(s): M25.562 - Pain in left knee Category: Medical Plan I advised the patient to come in for further assessment and he mentioned he has an appt with Dr Rajan on 12/19/23 and would like to keep this appt to further discuss options for his knee as he has seen him in the past and continues to have difficulty in the knee. Coding Level of Care Code Tele Est Pt Level 3 (53864) Complex EM visit Add On G2211 Diagnoses Left knee pain M25.562
== END 2023-12-12 11:17 | disposition home or self-care (01) ==
LOC: HO.HOS 10:51
PROVIDERS: PCP Internal Medicine; Visit Provider Physician Assistant
DX: M25.562 Pain in left knee (principal)
CPT/HCPCS: 99442

== ENCOUNTER → 2023-12-12 10:51 | Outpatient (BNVA) | payer OTHER, MEDICARE, SELFPAY | PROVIDERS: PCP Internal Medicine; Visit Provider Physician Assistant ==

== ENCOUNTER 2023-12-17 10:25 | Outpatient (AMB) | payer OTHER, MEDICARE, SELFPAY ==
--- NOTE | 2023-12-17 10:28 | A.OFFVIS_ITS ---
Intake Visit Reasons: follow up s/p US 12/06/23 Intake Note: Patient presents for follow up US done on 12/06/23. No complaints Accompanied by: Self / Same As Patient Allergies Penicillins [PENICILLINS] Allergy (Unknown, Verified 12/17/23 10:32) UNKNOWN SHELLFISH Allergy (Severe, Uncoded 11/28/23 15:28) SWELLING HPI HPI follow up s/p US 12/06/23: Details: Linus is a pleasant 68-year-old male patient coming in today for follow-up to his venous insufficiency ultrasound done on 12/05. He states he continues with some bilateral lower extremity swelling. He has been trialing compression stockings, however he has difficulty putting them on. He continues to be out of work due to his ongoing left knee pain. He is seeing Dr. Rajan on for that. He does continue on daily Lasix. He does continue to smoke approximately half a pack a day. [facility] Medical History HCV (hepatitis C virus) Nicotine dependence, cigarettes, uncomplicated MRSA (methicillin resistant Staphylococcus aureus) TMJ (dislocation of temporomandibular joint) Tubular adenoma of colon Surgical History History of liver biopsy History of colonoscopy History of bronchoscopy History of right knee surgery Social History Are you a primary rehab care assistant to a significant other at home: Yes (takes care of mother) Do you presently have visiting nurse or other home services: Yes (hosp[facility]) Patient Tobacco Use Status: Current everyday Tobacco user Tobacco use type: Cigarette Cigarette Packs Per Day: 0.5 Cigarettes Per Day: 10.0 Substance Use Type: Crack/Cocaine Review of Systems ENT Reports Normal hearing present Neuro Reports Normal hearing present and Denies Sensory deficit (Neuro) Physical Exam Const General: healthy appearing and no acute distress Orientation/consciousness: patient oriented x3 HEENT Head: Yes normal to inspection Ears: hearing grossly normal bilaterally Mouth: Normal oral and palatal mucosa present Resp Effort & Inspection: normal respiratory effort and able to speak in complete sentences Auscultation: clear to auscultation bilaterally Cardio Jugular venous distension: no JVD Rate: regular rate Rhythm: regular rhythm Heart sounds: S1 normal heart sound present and S2 normal heart sound present Bruits: no abdominal aortic bruits, no carotid bruits, no femoral bruits and no renal bruits Peripheral pulses: Peripheral pulses 2+ throughout GI Inspection: Yes normal to inspection Palpation (GI): No Abdominal aortic bruit present Skin General skin exam: no rashes or lesions noted Wounds: no wounds Hair: normal Neuro General: patient oriented x3 Cranial nerves: Yes CN's II-XII intact bilaterally and Yes Normal hearing present Cognition (Neuro): normal cognition Gait exam (Neuro): Normal gait present Motor exam (neuro): 5/5 motor strength present throughout Sensory Exam: No Sensory deficit (Neuro) Extrem Other: Bilateral +1 nonpitting edema. Patient wearing flip-flops his feet. Cool to the touch. Palpable DP pulses. General: Yes normal to inspection, Yes full ROM, Yes capillary refill normal and Yes normal gait Results Reviewed Results Reviewed: Brief summary of venous insufficiency testing is as follows: right great saphenous vein: negative. Noted to have a duplicate prox/mid calf right small saphenous vein: negative right accessory vein: none present left great saphenous vein: negative left small saphenous vein: negative left accessory vein: none present Please note there is no evidence of any venous aneurysms or significant tortuosity. There was question of a lipoma at the prox anterior calf measuring 2.5x0.6x2.0cm There is a prominent left gastroc vein. Assessment & Plan Assessment & Plan (1) Varicose veins of both lower extremities with inflammation: Code(s): I83.11 - Varicose veins of right lower extremity with inflammation; I83.12 - Varicose veins of left lower extremity with inflammation Category: Medical Plan: Linus is presenting today for a follow-up to a venous insufficiency ultrasound that was performed on December 05. There was no insufficiencies found bilaterally. The patient does continue with bilateral lower extremity swelling; we discussed that there could be several other possibilities to that. We discussed he should follow up with his PCP for a referral to cardiology. He is following up with Orthopedics on for possible fracture in his left knee. At this point there is no intervention and we will follow him as needed. Thank you for the consult. There are any questions or concerns please do not hesitate to reach out to us. Coding Level of Care Code Est Pt Level 4 (07564) Diagnoses Varicose veins of both lower extremities with inflammation I83.11; I83.12 Comment Review of venous insufficiency ultrasound
== END 2023-12-17 10:45 | disposition home or self-care (01) ==
LOC: HO.HVS 10:25
PROVIDERS: PCP Internal Medicine; Visit Provider Physician Assistant Surgical
DX: I83.11 Varicose veins of right lower extremity with inflammation (principal); I83.12 Varicose veins of left lower extremity with inflammation
CPT/HCPCS: 99214

== ENCOUNTER → 2023-12-17 10:25 | Outpatient (BNVA) | payer OTHER, MEDICARE, SELFPAY | PROVIDERS: PCP Internal Medicine; Visit Provider Physician Assistant Surgical ==

== ENCOUNTER 2023-12-19 13:52 | Outpatient (AMB) | payer OTHER, MEDICARE, SELFPAY ==
[2023-12-19 13:56] VITALS: BMI 19.5
--- NOTE | 2023-12-19 13:56 | MHC.OFFVIS ---
Vital Signs 12/19/23 13:56 Height 6 ft 3 in Weight 156 lb BMI 19.5 Intake Visit Reasons: OV - Left Knee Pain - MRI @ [facility] Intake Note: Linus is a 68 year old male who presents today for a follow up of his left knee pain. He was last seen with Uyen on 12/12/23. Allergies Penicillins [PENICILLINS] Allergy (Unknown, Verified 12/19/23 13:57) UNKNOWN SHELLFISH Allergy (Severe, Uncoded 12/19/23 13:57) SWELLING HPI HPI OV - Left Knee Pain - MRI @ [facility]: Details: Linus is a 68 year old male who presents today for a follow up of his left knee pain. He was last seen with Uyen on 12/12/23. He sustained a twisting impact injury ~ 6 weeks ago. He has a history of left ACL recon. He is improving with swelling less pronounced and pain mostly over the fibular head extending distally. [facility] Medical History HCV (hepatitis C virus) Nicotine dependence, cigarettes, uncomplicated MRSA (methicillin resistant Staphylococcus aureus) TMJ (dislocation of temporomandibular joint) Tubular adenoma of colon Surgical History History of liver biopsy History of colonoscopy History of bronchoscopy History of right knee surgery Social History Are you a primary director long term care to a significant other at home: Yes (takes care of mother) Do you presently have visiting nurse or other home services: Yes (hosp[facility]) Patient Tobacco Use Status: Current everyday Tobacco user Tobacco use type: Cigarette Cigarette Packs Per Day: 0.5 Cigarettes Per Day: 10.0 Substance Use Type: Crack/Cocaine Physical Exam Vital Signs: BMI result Body Mass Index 19.5 Extrem Other: left knee with trace effusion 1+Pierce's and ttp lateral compartment Results Reviewed Results Reviewed: IMPRESSION: 1. Mildly comminuted nondisplaced fracture proximal fibula. 2. Postsurgical change from ACL reconstruction with attenuated graft likely related to chronic partial tearing with graft insufficiency. 3. Attenuated medial meniscus likely related to prior partial meniscectomy. There is meniscal-like tissue extending into the super meniscal recess anteriorly likely displaced attached meniscal fragment. No comparative studies available. 4. 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 5. Grade 1 MCL injury. Assessment & Plan Assessment & Plan (1) History of reconstruction of anterior cruciate ligament tear: Code(s): Z98.890 - Other specified postprocedural states Category: Surgical Plan: This is a 60-year-old gentleman with a reconstructed ACL who sustained a injury to his left knee. The injury pattern is consistent with an ACL sprain and he has a fracture of his fibular head. He is walking and his motion is good and he is improving. I do not recommend intervention at this time. I do think he would benefit from physical therapy and I will see him back in 6 weeks. (2) Fracture of head of fibula: Code(s): S82.839A - Other fracture of upper and lower end of unspecified fibula, initial encounter for closed fracture Category: Medical Plan: This appears to be the primary cause of his pain at this time. No surgical intervention warranted. Orders: Orders PT Evaluation and Treatment Today S82.839A - Other fracture of upper and lower end of unspecified fibula, initial encounter for closed fracture, Z98.890 - Other specified postprocedural states Coding Level of Care Code Est Pt Level 4 (23716) Diagnoses History of reconstruction of anterior cruciate ligament tear Z98.890 Fracture of head of fibula S82.839A
== END 2023-12-19 14:58 | disposition home or self-care (01) ==
PROVIDERS: PCP Internal Medicine; Visit Provider Orthopaedic Surgery
DX: M25.562 Pain in left knee (principal); S82.839A Other fracture of upper and lower end of unspecified fibula, initial encounter for closed fracture
CPT/HCPCS: 99214

== ENCOUNTER → 2023-12-19 13:52 | Outpatient (BNVA) | payer MEDICARE, SELFPAY | PROVIDERS: PCP Internal Medicine; Visit Provider Orthopaedic Surgery ==

== ENCOUNTER 2024-01-10 08:00 | Outpatient (RCR) | payer OTHER, MEDICARE, SELFPAY ==
--- NOTE | 2024-01-03 10:13 | MHC.PT.EP ---
[facility] Office [place] Office [place] Office [address] Jermaine Garrido [address] [phone] F: [phone] F: [phone] F: [phone] F: [phone] Physical Therapy Plan of Care Date of Evaluation: 01/03/24 Date of Surgery: Diagnosis: Other fracture of upper and lower end of fibula Assessment: Patient is a 68 year old R handed male who presents with s/s consistent with other fracture of upper and lower end of fibula, knee pain. He works with daily job demands including mostly standing and walking. Patient past medical history includes Hep C, MRSA and history of nicotine dependence which he is currently quitting. Current impairments include pain, balance, ROM, strength, activity tolerance and functional mobility. Functional limitations include decreased ability to stand, transfer, walk, negotiate stairs and work. Patient is motivated with good rehab potential. Skilled PT will address impairments and functional limitations in order to achieve goals. Frequency and Duration: The patient will be seen 2x/week for 5 weeks Short Term Goals: I with HEP -2 weeks Min tightness gastroc and HS - 3 weeks max pain with walking - 3/10 - 3 weeks Custodial Goals: Able to walk 20 minutes with max pain 1/10 - 5 weeks LEFS 44/80 - 5 weeks LE strength 4+/5 grossly - 5 weeks Treatment Plan: Modalities to reduce pain, spasms and effusion. Manual therapy to restore motion and function. Therapeutic exercise to improve strength and flexibility. Neuromuscular re-education for posture and balance. Therapeutic activities to return to functional activities of daily living. Electronically signed by: Alcides Eng, PT Please sign and return to therapist. Thank you for your referral.
--- NOTE | 2024-05-13 10:51 | MHC.PT.DC ---
[place] Office [place] Office [place] [facility] [address] Jermaine Garrido [address] [phone] F: [phone] F: [phone] F: [phone] F: [phone] Physical Therapy Discharge Report Diagnosis: Other fracture of upper and lower end of fibula Date of Surgery: Date of Evaluation: 01/03/24 Date of Discharge: 03/05/24 Treatments to Date: 3 Cancellations to Date: No Shows to Date: Discharge Status: Patient Elected to Stop Discharge Summary: 01/10/24: pt progressing with activity tolerance. some crepitus with shuttle and stairs. we will monitor this moving forward. 01/07; Pt fatigued after hip exs. ROM WNL. Patella mobs pain free and WNL. Pt TTP lateral HS. NV shuttle/step Patient is a 68 year old R handed male who presents with s/s consistent with other fracture of upper and lower end of fibula, knee pain. He works with daily job demands including mostly standing and walking. Patient past medical history includes Hep C, MRSA and history of nicotine dependence which he is currently quitting. Current impairments include pain, balance, ROM, strength, activity tolerance and functional mobility. Functional limitations include decreased ability to stand, transfer, walk, negotiate stairs and work. Patient is motivated with good rehab potential. Skilled PT will address impairments and functional limitations in order to achieve goals. Electronically signed by: Alcides Eng, PT Please sign and return to therapist. Thank you for your referral.
== END 2024-05-13 10:51 | disposition home or self-care (01) ==
LOC: HO.PTCHIC 08:00
PROVIDERS: PCP Internal Medicine; Visit Provider Orthopaedic Surgery
DX: S82.832A Other fracture of upper and lower end of left fibula, initial encounter for closed fracture (principal); Z98.890 Other specified postprocedural states
CPT/HCPCS: 97110; 97162

== ENCOUNTER 2024-02-10 10:22 | Outpatient (AMB) | payer MEDICARE, SELFPAY ==
--- OUTSIDE RECORDS SUMMARY | 2024-02-10 10:24 | XMS_ITS | Patient Health Record ---
Author Organization [facility] Address [address] [place] [address] Care Team Providers Care Premix Operator Concentrate Name Role Phone Flor Chandra Primary Care Provider Dontrell Meade Unavailable [phone] ALLERGIES Allergen (clinical drug ingredient) Drug/Non Drug Allergy documented on EMR Reaction Allergy Type Onset Date Status Penicillin Unknown Drug Allergy Active REASON FOR REFERRAL No Information MEDICATIONS Medication SIG (Take, Route, Frequency, Duration) Notes Start Date End Date Status Wellbutrin Not-Takin g hydroCHLOROthiazide 12.5 MG 1 capsule in the morning Orally Once a day for 30 day(s) 04/25/2022 Active IMMUNIZATIONS Vaccine Route Administration Date Status Comme nts Influenza Unknown 11/25/2019 Administered Influenza Unknown 12/07/2020 Administered Influenza Unknown 12/05/2021 Administered SOCIAL HISTORY Tobacco Use: Social History Observation Description Date Details (start date - stop date) Former Smoker NA - NA Sex Assigned At : Social History Observation Description Sex Assigned At Unknown Tobacco Use/Smoking Question Answer Notes Patient is a former smoker How long has it been since you last smoked? 1-3 months PROBLEMS Problem Type ICD Code Onset Dates Problem Status W/U Status Risk SNOMED Code Notes Problem Chronic hepatitis C without hepatic coma (B18.2) Active confirmed 108344577 Problem Chronic hepatitis C (B18.2) Active confirmed 544795434 Problem Encounter for screening for malignant neoplasm of colon (Z12.11) Active confirmed 089384647 Problem Tubular adenoma of colon (D12.6) Active confirmed Tubular maría noma of colon (732781800) Problem Liver fibrosis (K74.00) Active confirmed 41253678 Problem Hx of adenomatous colonic polyps (Z86.010) Active confirmed 700722362 Problem History of hepatitis C (Z86.19) Active confirmed 71081897745726 Problem Diverticulosis of colon (K57.30) Active confirmed Diverticulosi s of colon (736383752) Encounters Encounter Location Date Provider Diagnosis [facility] [address] [place] [address] 10/16/2023 Dontrell Caba [facility] [address] [place] [address] 10/15/2023 Dontrell Caba [facility] [address] [place] [address] 12/10/2023 Dontrell Caba PLAN OF TREATMENT Pending Test Test Name Order Date BUN 01/03/2016 CREATININE 01/03/2016 LIVER PROFILE 01/03/2016 LIVER PROFILE 07/12/2015 LIVER PROFILE 04/26/2021 LIVER PROFILE 06/01/2016 LIVER PROFILE 04/25/2022 LIVER PROFILE 04/03/2016 CBC w DIFF 04/03/2016 CBC w DIFF 01/03/2016 CBC w DIFF 07/12/2015 CBC w DIFF 04/26/2021 CBC w DIFF 06/01/2016 PROTHROMBIN TIME (PT, INR) 04/26/2021 ALPHA-FETOPROTEIN,TUMOR MARKER 3 HEPATITIS C VIRAL LOAD 04/26/2021 HEPATITIS C VIRAL LOAD 04/25/2022 HEPATITIS C VIRAL LOAD 04/13/2020 HEPATITIS C VIRAL LOAD 04/03/2016 HEPATITIS C VIRAL LOAD 01/03/2016 HEPATITIS C VIRAL LOAD 07/12/2015 HEPATITIS C VIRAL LOAD 06/01/2016 HCV LIVER FIBROSIS, FIBRO TEST 2 HCV LIVER FIBROSIS, FIBRO TEST 6 US ABDOMEN COMP WITH ELASTOGRAPHY 2022 US ABDOMEN COMP WITH ELASTOGRAPHY 2021 Alpha Fetoprotein 04/26/2021 Liver Fibrosis Pnl 04/25/2022 Future Test Test Name Order Date COLONOSCOPY 01/02/2017 COLONOSCOPY 04/25/2022 Next Appt Details Provider Name:Dontrell Caba , 02/26/2024 04:00:00 PM, [address], [address], [place], [address], Insurance Providers Payer Name Payer Address Payer Phone Subscriber Number Group Number Insured Name Patient Relationship to Insured Coverage Start Date Coverage End Date [employer] PPO [address] [place] [phone] [id number] WALLY HORAN Self - patient is the insured MEDICAL (GENERAL) HISTORY Medical History History ICD Code TMJ--left--degenerative arthritis Denies TX,DM,CVA,Lung disease,renal dise ase Chronic hepatitis C--genotyp e 4ACD--liver biopsy Gr 02/21, Stage I/IV in May 2015--started the Harvoni in early April,--HCV viral load was negative 05/28/2016 and 12/2016 2 colonoscopies in [facility] ld-most recent one was at age 50--both negative--is in a 10 year recall by his report MRSA involving an abscess on his chest w all Colonoscopy 02/2017 with 2 small tubular adenomas Surgical History Surgery Date(Month/Year) ACL RECONSTRUCTION 1994,2011 DEGENERATIVE 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
--- OUTSIDE RECORDS SUMMARY | 2024-02-10 10:24 | XMS_ITS ---
Author Organization [facility] Address [address] [place] [address] Care Team Providers Care Mission Support Specialist Name Role Phone Flor Chandra Primary Care Provider Unavailab Dontrell Ramirez Unavailable [phone] REASON FOR VISIT blood work Encounters Encounter Location Date Provider Diagnosis [facility] [address] [place] [address] 12/10/2023 Dontrell Caba PLAN OF TREATMENT Next Appt Details Provider Name:Dontrell Caba , 02/26/2024 04:00:00 PM, [address], [address], [place], [address],
--- OUTSIDE RECORDS SUMMARY | 2024-02-10 10:24 | XMS_ITS ---
Author Organization [facility] Address [address] [place] [address] Care Team Providers Care Founder President And Ceo Name Role Phone Flor Chandra Primary Care Provider Unavailab Dontrell Ramirez Unavailable [phone] REASON FOR VISIT R/S PT . CANCELLED OCT 15 AT 4:20 Encounters Encounter Location Date Provider Diagnosis [facility] [address] [place] [address] 10/15/2023 Dontrell Caba PLAN OF TREATMENT Next Appt Details Provider Name:Dontrell Caba , 02/26/2024 04:00:00 PM, [address], [address], [place], [address],
--- OUTSIDE RECORDS SUMMARY | 2024-02-10 10:24 | XMS_ITS ---
Author Organization [facility] Address [address] [place] [address] Care Team Providers Care [place]bury Operator Name Role Phone Flor Chandra Primary Care Provider Unavailab Dontrell Ramirez Unavailable [phone] REASON FOR VISIT Patient presents today for hep c Encounters Encounter Location Date Provider Diagnosis [facility] [address] [place] [address] 10/16/2023 Dontrell Caba PLAN OF TREATMENT Next Appt Details Provider Name:Dontrell Caba , 02/26/2024 04:00:00 PM, [address], [address], [place], [address],
--- NOTE | 2024-02-10 10:44 | MHC.OFFVIS ---
Intake Visit Reasons: OV - Left ACL Sprain & Fibular Head fx Intake Note: Linus is a 68 year old male who presents today for a follow up of his right knee. He was last seen in November for ACL sprain in fibular head fracture - There was no intervention warranted as his walking and motion is good. Physical Therapy was ordered. Patient reports that the PT was causing more pain. He has questions in regards to the the cost of surgery as well as the healing time and timing of surgery. Allergies Penicillins [PENICILLINS] Allergy (Unknown, Verified 12/19/23 13:57) UNKNOWN SHELLFISH Allergy (Severe, Uncoded 12/19/23 13:57) SWELLING HPI HPI OV - Left ACL Sprain & Fibular Head fx: Details: Linus is doing well. He still feels like he can not ski but his pain is improving. He is approximately PFSH Medical History HCV (hepatitis C virus) Nicotine dependence, cigarettes, uncomplicated MRSA (methicillin resistant Staphylococcus aureus) TMJ (dislocation of temporomandibular joint) Tubular adenoma of colon Surgical History History of liver biopsy History of colonoscopy History of bronchoscopy History of right knee surgery Social History Are you a primary manager home healthcare to a significant other at home: Yes (takes care of mother) Do you presently have visiting nurse or other home services: Yes ([facility]) Patient Tobacco Use Status: Current everyday Tobacco user Tobacco use type: Cigarette Cigarette Packs Per Day: 0.5 Cigarettes Per Day: 10.0 Substance Use Type: Crack/Cocaine Physical Exam Extrem Other: On exam he has full range of motion. 1+ Pierce's with negative pivot shift. Walking normally with no obvious gait disturbance. Assessment & Plan Assessment & Plan (1) Fracture of head of fibula: Code(s): S82.839A - Other fracture of upper and lower end of unspecified fibula, initial encounter for closed fracture Category: Medical Plan: Fracture of fibular head which is improving. This may have also resulted in an injury to his ACL graft although clinically he is stable at this point. (2) History of reconstruction of anterior cruciate ligament tear: Code(s): Z98.890 - Other specified postprocedural states Category: Surgical Plan: Stable on exam and no episodes of giving way. I recommend we continue to watch and I will see him back in 3 months. Over the next 3 months I recommend he continue simple daily activities like walking and basic exercising and should avoid skiing playing sports that require cutting. Coding Level of Care Code Est Pt Level 3 (13916) Diagnoses Fracture of head of fibula S82.839A History of reconstruction of anterior cruciate ligament tear Z98.890
== END 2024-02-10 12:40 | disposition home or self-care (01) ==
PROVIDERS: PCP Internal Medicine; Visit Provider Orthopaedic Surgery
DX: S82.831A Other fracture of upper and lower end of right fibula, initial encounter for closed fracture (principal); S83.511D Sprain of anterior cruciate ligament of right knee, subsequent encounter
CPT/HCPCS: 99213

== ENCOUNTER → 2024-02-10 10:22 | Outpatient (BNVA) | payer MEDICARE, SELFPAY | PROVIDERS: PCP Internal Medicine; Visit Provider Orthopaedic Surgery | DX: S82.839D Other fracture of upper and lower end of unspecified fibula, subsequent encounter for closed fracture with routine healing (principal); Z98.890 Other specified postprocedural states | CPT/HCPCS: 99212 ==

== ENCOUNTER 2024-05-11 14:42 | Outpatient (AMB) | payer MEDICARE, SELFPAY ==
--- NOTE | 2024-05-11 14:52 | MHC.OFFVIS ---
Intake Visit Reasons: OV - Left ACL Sprain & Fibular Head fx Intake Note: Linus is a 68 year old male who presents today for a follow up of his le knee. At the last visit there was concern of damage to ACL graft, but he did not show signs of instability. Pt states he is still having pain everyday and states it is difficult to walk up and down stairs. Allergies Penicillins [PENICILLINS] Allergy (Unknown, Verified 05/11/24 14:52) UNKNOWN SHELLFISH Allergy (Severe, Uncoded 05/11/24 14:52) SWELLING HPI HPI OV - Left ACL Sprain & Fibular Head fx: Details: Linus comes in today with continued left knee pain. He re-injured the old ACL repair and has been doing okay. He would like to go back to work which I think is reasonable but he describes not being sure if he is able to walk long distances a return to his prior level of activity. He enjoys hiking and walking and still has they global left knee pain. Minimal giving way. [facility] Medical History HCV (hepatitis C virus) Nicotine dependence, cigarettes, uncomplicated MRSA (methicillin resistant Staphylococcus aureus) TMJ (dislocation of temporomandibular joint) Tubular adenoma of colon Surgical History History of liver biopsy History of colonoscopy History of bronchoscopy History of right knee surgery Social History Are you a primary career services coordinator to a significant other at home: Yes (takes care of mother) Do you presently have visiting nurse or other home services: Yes (hospice visiting [facility]) Patient Tobacco Use Status: Current everyday Tobacco user Tobacco use type: Cigarette Cigarette Packs Per Day: 0.5 Cigarettes Per Day: 10.0 Substance Use Type: Crack/Cocaine Physical Exam Extrem Other: No effusion Medial compartment mild tenderness to palpation. Near full range of motion. No lateral tenderness to palpation. Assessment & Plan Assessment & Plan (1) Osteoarthritis of left knee: Code(s): M17.12 - Unilateral primary osteoarthritis, left knee Category: Medical Plan: This is a 68-year-old gentleman with left knee osteoarthritis. He has a history of prior ACL reconstruction but his medial compartment arthritis is moderate to severe and I do not think any additional reconstructive surgery would be a good idea. I discussed this with him. Should his pain worsen and he is unable to engage in meaningful daily activities we may consider arthroplasty. We discussed injections but he is not interested in temporary solutions. I discussed surgery with him in detail including recovery time in details of arthroplasty procedure. He will see me back in 3 months and will get a better assessment of what his functional limitations are. He can return to work as tolerated. Coding Level of Care Code Est Pt Level 4 (26789) Diagnoses Osteoarthritis of left knee M17.12
== END 2024-05-11 15:36 | disposition home or self-care (01) ==
LOC: HO.HOS 14:42
PROVIDERS: PCP Internal Medicine; Visit Provider Orthopaedic Surgery
DX: M17.12 Unilateral primary osteoarthritis, left knee (principal)
CPT/HCPCS: 99213

== ENCOUNTER 2024-05-11 14:42 | Outpatient (REF) | payer MEDICARE, SELFPAY ==
[2024-05-11 15:39] LABS: MANUAL DIFF FLAG NO
[2024-05-11 16:56] LABS: Basophils Absolute Auto 0.1 X10*3/uL (0.0-0.2); Basophils Percent Auto 0.8 % (0-2); Eosinophils Absolute Auto 0.3 X10*3/uL (0.0-0.4); Eosinophils Percent Auto 2.5 % (0-4); Hematocrit 40.4 % (42.0-52.0); Hemoglobin 13.4 g/dl (14.0-18.0); Imm Gran Abs Auto 0.05 X10*3/uL (0.00-0.03); Imm Gran Pct Auto 0.5 % (0.0-0.4); Lymphocytes Absolute Auto 3.5 X10*3/uL (1.2-4.9); Lymphocytes Percent Auto 33.2 % (20-40); Mean Corpuscular HGB Conc 33.2 g/dl (31.0-36.0); Mean Corpuscular Volume 90.4 fL (80.0-98.0); Mean Platelet Volume 9.2 fL (9.4-12.4); Neutrophils Absolute Auto 5.7 x10*3/uL (2.0-8.3); Platelet Count 458 X10*3/uL (160-400); Red Blood Count 4.47 X10*6/uL (4.60-5.80); Red Cell Distribution Width 13.2 % (11.0-16.0); White Blood Count 10.6 X10*3/uL (4.8-10.8)
[2024-05-11 17:29] LABS: Alanine Aminotransferase 20 U/L (0-40); Albumin Level 3.9 g/dL (3.5-5.0); Alkaline Phosphatase 107 U/L (39-117); Anion Gap 12 (12-20); Aspartate Amino Transferase 24 U/L (5-37); Bilirubin Total 0.3 mg/dL (0.0-1.0); Blood Urea Nitrogen 33 mg/dL (9-16); Calcium 8.9 mg/dL (8.4-10.2); Carbon Dioxide 27 mmol/L (22-29); Chloride 107 mmol/L (96-108); Cholesterol 151 mg/dL (<200); Estimated Glomerular Filt Rate 55; Glucose Random 81 mg/dL (60-115); HDL Cholesterol 50 mg/dL (>40); LDL Cholesterol Calculated 92 mg/dL (<100); Potassium 4.3 mmol/L (3.3-5.1); Sodium 142 mmol/L (135-145); Total Protein 7.2 g/dL (6.5-8.0); Triglycerides 46 mg/dL (<150)
[2024-05-11 17:50] LABS: Prostate Specific Antigen 0.68 ng/mL (<0.05-4.0)
== END 2024-05-11 14:43 | disposition home or self-care (01) ==
LOC: HO.LAB 14:42
PROVIDERS: Absent Provider Internal Medicine; PCP Internal Medicine; Visit Provider Orthopaedic Surgery
DX: J44.9 Chronic obstructive pulmonary disease, unspecified (principal); N18.32 Chronic kidney disease, stage 3b; N40.0 Benign prostatic hyperplasia without lower urinary tract symptoms; R63.4 Abnormal weight loss; Z72.0 Tobacco use; Z12.5 Encounter for screening for malignant neoplasm of prostate; M17.12 Unilateral primary osteoarthritis, left knee
CPT/HCPCS: 36415; 80053; 80061; 84153; 85025; 99212

== ENCOUNTER 2024-06-16 07:13 | Outpatient (REF) | payer MEDICARE, SELFPAY ==
--- NOTE | ~2024-06-16 | US_ITS ---
EXAMINATION: US ABDOMEN COMPLETE WITH LIVER ELASTOGRAPHY HISTORY: FIBROSIS OF LIVER, HISTORY OF CHRONIC HEPATITIS TECHNIQUE: Real-time grayscale ultrasound imaging of the abdomen was performed and images were reviewed. COMPARISON: Comparison is made with the prior examination dated 05/04/2022. FINDINGS: Liver: The right lobe of the liver measures 14.3 cm in size. The left lobe of the liver measures 10.8 cm in size. The liver demonstrates normal homogeneous echotexture, but a mildly nodular contour suggestive of cirrhosis. No focal mass or intrahepatic biliary ductal dilatation is identified. There is normal hepatopedal flow in the portal vein. Ultrasound elastography of the liver was performed with 10 separate measurements of the liver parenchyma with the patient in the supine position. Measurements were obtained approximately 2 cm below Cody's capsule and perpendicular to the capsule. Images are of satisfactory quality. The median shear wave velocity is 1.22 m/s (previously 1.59 m/s, although this was performed on a machine of a different vendor, limiting comparison). The interquartile range/median (IQR/median) is 0.30. Gallbladder and biliary tree: The gallbladder is unremarkable, without evidence of calculi, wall thickening, or pericholecystic fluid. There is no sonographic Palmer sign. The common bile duct is normal in caliber measuring 3 mm. Kidneys: The right kidney measures 11.1 cm in length and demonstrates a 13 x 8 x 13 mm upper pole cyst. The left kidney measures 11.2 cm in length and demonstrates 2 upper pole cysts measuring 15 x 13 x 13 mm and 6 x 5 x 5 mm. The kidneys are otherwise unremarkable, without evidence of solid masses, hydronephrosis, or calculi. Pancreas: The pancreatic head, neck, and body are unremarkable. The pancreatic tail is obscured by bowel gas. Spleen: The spleen is normal in size and contour, measuring 7.7 cm in length. Abdominal aorta and inferior vena cava: The visualized portions of the abdominal aorta and inferior vena cava are normal in caliber. There is no free fluid in the abdomen. US/US abdomen comp w elastography IMPRESSION: Nodular liver contour, suggestive of cirrhosis. The median shear wave velocity in the liver is 1.22 m/s, corresponding to a median liver stiffness of 4.5 kPa. The IQR/median value is 0.30. This is indicative of a quality data set. Findings are indicative of a normal elastography value with a low likelihood of severe fibrosis or cirrhosis. REFERENCE: Society of Radiologists in Ultrasound Liver Stiffness Thresholds (2020): LIVER STIFFNESS THRESHOLDS: *Shear wave velocity less than 1.3 m/s (Liver Stiffness equal or less than 5 kPa): High probability of being normal. *Shear wave velocity less than 1.7 m/s (Liver Stiffness less than 9 kPa): In the absence of other known clinical signs, rules out compensated advanced chronic liver disease. *Shear wave velocity between 1.7-2.1 m/s (Liver Stiffness 9-13 kPa): Suggestive of compensated advanced chronic liver disease but need further test for confirmation. *Shear wave velocity between 2.1-2.4 m/s (Liver Stiffness 13-17 kPa): Rules in compensated advanced chronic liver disease. *Shear wave velocity greater than 2.4 m/s (Liver Stiffness over 17 kPa): Suggestive of clinically significant portal hypertension. QUALITY OF DATA SET: *IQR/Median value equal or less that 0.30 implies a quality data set. *IQR/Median value over 0.30 implies a poor quality data set. SIGNIFICANT CHANGE FROM PRIOR EXAM: Significant change if liver stiffness measurement is 10% or greater from prior exam. OTHER CONSIDERATIONS: The stage of liver fibrosis may be overestimated in the setting of acute hepatitis, liver inflammation, elevated liver function tests, hepatic vascular congestion, obstructive cholestasis, non-fasting state, and infiltrative diseases such as amyloidosis and lymphoma. In some patients with NAFLD, the liver stiffness thresholds for compensated advanced chronic liver disease may be lower. In causes other than viral hepatitis and NAFLD, liver stiffness thresholds are not well established. Electronically signed by: Dontrell Moran MD 06/17/2024 12:56 PM EDT
--- OUTSIDE RECORDS SUMMARY | 2024-06-16 07:16 | XMS_ITS | Clinical Summary ---
Author Organization [facility] Address [address] [place] [address] Phone Care Team Providers Care Automatic Steel Tie Adjuster Name Role Phone Flor Chandra MD Primary Care Provider Allergies Active Allergy Reactions Criticality Noted Date Comments Penicillins 04/20/2020 Medications buPROPion SR (WELLBUTRIN SR) 150 MG 12 hr tablet Take 150 mg by mouth in the morning and 150 mg in the evening. 04/19/2021 Active Active Problems Problem Noted Date Diagnosed Date Shortness of breath 05/17/2021 Supraventricular tachycardia 05/17/2021 Underweight 05/17/2021 Hypertension 05/17/2021 Stage 3a chronic kidney disease 05/18/2020 Acute nontraumatic kidney injury 04/20/2020 Family History Medical History Relation Comments Diabetes Brother Diabetes Father Hypertension Father Relation Status Comments Brother Father Social History Tobacco Use Types Packs/Day Years Used Date Smoking Tobacco: Former Smokeless Tobacco: Former Alcohol Use Standard Drinks/Week Comments Not Currently 0 (1 standard drink = 0.6 oz pur e alcohol) Sex and Gender Information Value Date Recorded Sex Assigned at Not on file Legal Sex Male 4:59 PM EST Gender Identity Not on file Sexual Orientation Not on file Last Filed Vital Signs Vital Sign Reading Time Taken Comments Blood Pressure 142/80 05/17/2021 3:51 PM EDT Pulse 67 05/17/2021 3:51 PM EDT Temperature - - Respiratory Rate - - Oxygen Saturation - - Inhaled Oxygen Concentration - - Weight 74.3 kg (163 lb 12.8 oz) 05/17/2021 3:51 PM EDT Height - - Body Mass Index - - Plan of Treatment Health Maintenance Due Date Last Done Comments Pneumococcal Vaccine: 50+ Ye ars (1 of 2 - PCV) 12/03/1974 Colorectal Cancer Screening: Annual FOBT 12/03/2004 Colorectal Cancer Screening: Colonoscopy 12/03/2004 Colorectal Cancer Screening: Sigmoidoscopy 12/03/2004 Influenza Vaccine (Season Ended) 2024 Hepatitis B Vaccine Aged Out No longe r eligible based on patient's age to complete this topic Insurance [employer] Care Teams Automatic Steel Tie Adjuster Relationship Specialty Start Date End Date Flor Chandra MD [address] [place] [address] PCP - General 02/29/20
[2024-06-16 07:25] LABS: MANUAL DIFF FLAG NO
[2024-06-16 08:25] LABS: Basophils Absolute Auto 0.1 X10*3/uL (0.0-0.2); Basophils Percent Auto 1.1 % (0-2); Eosinophils Absolute Auto 0.4 X10*3/uL (0.0-0.4); Eosinophils Percent Auto 3.7 % (0-4); Hematocrit 40.8 % (42.0-52.0); Hemoglobin 13.1 g/dl (14.0-18.0); Imm Gran Abs Auto 0.03 X10*3/uL (0.00-0.03); Imm Gran Pct Auto 0.3 % (0.0-0.4); Lymphocytes Absolute Auto 3.3 X10*3/uL (1.2-4.9); Lymphocytes Percent Auto 35.3 % (20-40); Mean Corpuscular HGB Conc 32.1 g/dl (31.0-36.0); Mean Corpuscular Hemoglobin 29.2 pg (27.0-33.0); Mean Corpuscular Volume 91.1 fL (80.0-98.0); Mean Platelet Volume 9.8 fL (9.4-12.4); Monocytes Absolute Auto 0.9 X10*3/uL (0.1-1.2); Monocytes Percent Auto 9.8 % (2-11); Neutrophils Absolute Auto 4.7 x10*3/uL (2.0-8.3); Neutrophils Percent Auto 49.8 % (45-73); Platelet Count 275 X10*3/uL (160-400); Red Blood Count 4.48 X10*6/uL (4.60-5.80); Red Cell Distribution Width 15.2 % (11.0-16.0); White Blood Count 9.5 X10*3/uL (4.8-10.8)
[2024-06-16 08:35] LABS: INTERNATIONAL NORM RATIO 0.9 (0.9-1.1); Prothrombin Time 10.6 SEC (10.9-12.4)
[2024-06-16 09:18] LABS: Alanine Aminotransferase 26 U/L (0-40); Alkaline Phosphatase 132 U/L (39-117); Aspartate Amino Transferase 31 U/L (5-37); Bilirubin Direct 0.2 mg/dL (0.0-0.5); Bilirubin Total 0.4 mg/dL (0.0-1.0)
[2024-06-17 12:18] LABS: Alpha Fetoprotein 1.8 ng/mL (<6.1)
[2024-06-17 21:23] LABS: HCV Log PCR <1.18 NOT DETECTED Log IU/mL (NOT DETECTED); HepC Viral Load <15 NOT DETECTED IU/mL (NOT DETECTED)
[2024-06-20 18:42] LABS: FIB-ALT 18 U/L (9-46); FIB-Alpha-2-Macroglobulin 223 mg/dL (106-279); FIB-Apolipoprotein A1 167 mg/dL (94-176); FIB-GGT 9 U/L (3-70); FIB-Haptoglobin 146 mg/dL (43-212); FIB-Total Bilirubin 0.5 mg/dL (0.2-1.2); Liver Fibrosis Stage F0; Nec Inflam Act Grade A0; Nec Inflam Act Score 0.06; Reference ID 5467309
== END 2024-06-16 07:14 | disposition home or self-care (01) ==
LOC: HO.US 07:13
PROVIDERS: PCP Internal Medicine; Visit Provider Internal Medicine
DX: K74.00 Hepatic fibrosis, unspecified (principal); Z87.19 Personal history of other diseases of the digestive system
CPT/HCPCS: 36415; 76700; 76981; 80076; 81596; 82105; 85025; 85610; 87522

== ENCOUNTER → 2024-06-16 07:26 | Outpatient (BNV) | payer MEDICARE, SELFPAY | PROVIDERS: PCP Internal Medicine; Visit Provider Radiology Diagnostic Radiology | DX: K74.00 Hepatic fibrosis, unspecified (principal); K73.9 Chronic hepatitis, unspecified | CPT/HCPCS: 76700; 76981 ==

== ENCOUNTER 2024-06-29 11:28 | Outpatient (REF) | payer MEDICARE, SELFPAY ==
--- NOTE | ~2024-06-29 | XR_ITS ---
EXAMINATION: XR SHOULDER, LEFT CLINICAL INFORMATION: M25.512 - Pain in left shoulder COMPARISON: None available. TECHNIQUE: AP external rotation, Grashey, scapular Y, and axillary views of the left shoulder. FINDINGS: Normal bone mineralization. No fracture, dislocation, or suspicious bone lesion. Normal alignment. The glenohumeral joint demonstrate mild degenerative arthritis. The AC joint demonstrate mild spurring. There is a type II acromion. No undersurface spurring. The subacromial space is mildly narrowed allowing for obliquity. Remainder of the soft tissue and bony structures appear normal. XR/XR shoulder LT min 2V IMPRESSION: No acute bony abnormalities. Mild degenerative arthritis in the glenohumeral joint and AC joint. Electronically signed by: Maximiliano Bragg MD 06/29/2024 03:20 PM EDT
--- OUTSIDE RECORDS SUMMARY | 2024-06-30 12:57 | XMS_ITS | Clinical Summary ---
Author Organization [facility] Address [address] [place] [address] Phone Care Team Providers Care Laborer Name Role Phone Flor Chandra MD Primary [...] this topic Insurance [employer] Care Teams Laborer Relationship Specialty Start Date End Date Flor Chandra MD [address] [place] [address] PCP - General 02/29/20
== END 2024-06-29 11:29 | disposition home or self-care (01) ==
LOC: HO.HOSX 11:28
PROVIDERS: Visit Provider Physician Assistant
DX: M19.012 Primary osteoarthritis, left shoulder (principal); S46.012D Strain of muscle(s) and tendon(s) of the rotator cuff of left shoulder, subsequent encounter
CPT/HCPCS: 73030

== ENCOUNTER 2024-06-29 15:03 | Outpatient (AMB) | payer MEDICARE, SELFPAY ==
--- OUTSIDE RECORDS SUMMARY | 2024-06-29 15:06 | XMS_ITS | Clinical Summary ---
Author Organization [facility] Address [address] [place] [address] Phone Care Team Providers Care Substance Abuse Clinician Name Role Phone Flor Chandra MD Primary Care Provider [phone] Allergies Active Allergy Reactions Criticality Noted Date [...] this topic Insurance [employer] Care Teams Substance Abuse Clinician Relationship Specialty Start Date End Date Flor Chandra MD [address] [place] [address] PCP - General 02/29/20
--- NOTE | 2024-06-29 15:14 | MHC.OFFVIS ---
Vital Signs 06/29/24 15:21 Height 6 ft 3 in Weight 156 lb BMI 19.5 Intake Visit Reasons: New Prob - left shoulder pain Intake Note: Linus is a 68 year old male who presents today for a evaluation of his left shoulder pain. Patient reports that he has been attending physical therapy for about 7 weeks that has helped a little. He has ongoing pain and crunching with certain exercises as well as weakness in his arm. He believes his shoulder pain is related to injections that were given. He had weakness for months and went to lift open a window and had felt an electric sensation in his shoulder. No other tx. Denies numbness or tingling. Allergies Penicillins [PENICILLINS] Allergy (Unknown, Verified 06/29/24 15:51) UNKNOWN SHELLFISH Allergy (Severe, Uncoded 06/29/24 15:51) SWELLING Medication List - Last Reconciled 06/29/24 by NIKUNJ Bill As directed naproxen 500 mg PO BID walker Folding Front wheeled walker duration 99 days walker Folding Front wheeled walker duration 99 days HPI HPI New Prob - left shoulder pain: Details: 68-year-old gentleman presents to the office today for left shoulder pain . He has been attending physical therapy for the last 7 weeks and he has noticed an improvement in his discomfort and motion however there continues to be some weakness. He is scheduled for a left total knee arthroplasty with Dr. Rajan on 09/08/2024. [facility] Medical History HCV (hepatitis C virus) Nicotine dependence, cigarettes, uncomplicated MRSA (methicillin resistant Staphylococcus aureus) TMJ (dislocation of temporomandibular joint) Tubular adenoma of colon Surgical History History of liver biopsy History of colonoscopy History of bronchoscopy History of right knee surgery Social History Are you a primary home health care social worker to a significant other at home: Yes (takes care of mother) Do you presently have visiting nurse or other home services: Yes (hospice visiting angelvahe) Patient Tobacco Use Status: Current everyday Tobacco user Tobacco use type: Cigarette Cigarette Packs Per Day: 0.5 Cigarettes Per Day: 10.0 Substance Use Type: Crack/Cocaine Review of Systems Const All systems reviewed & are unremarkable except as noted in HPI and below Physical Exam Vital Signs: BMI result Body Mass Index 19.5 Extrem Other: Left shoulder normal to inspection. Mild discomfort over the AC joint. FF to 175, ER to 90, IR to S1. He does demonstrate weakness with rotator cuff strength testing specifically belly press with compensation, negative pillai, cross body abduction. NVI. Results Reviewed Results Reviewed: X-rays of the left shoulder obtained in the office today and reviewed by me show AC joint arthritis with well-preserved glenohumeral joint space. Assessment & Plan Assessment & Plan (1) Arthritis of left acromioclavicular joint: Code(s): M19.012 - Primary osteoarthritis, left shoulder Category: Medical (2) Strain of left rotator cuff capsule: Code(s): S46.012A - Strain of muscle(s) and tendon(s) of the rotator cuff of left shoulder, initial encounter Category: Medical Plan We discussed options today which include continuing to work with physical therapy as he is showing some improvements. I would anticipate some improvements with his strength over the next several weeks which would also help with his recovery and his total knee surgery as he will need to use a walker and a cane. We will continue to work with physical therapy and if symptoms persist or worsen he can contact me to discuss an MRI however the need for any type of surgical intervention would have to be delayed given his upcoming knee surgery. Patient is content with this plan. Orders: Orders XR shoulder LT min 2V Today M25.512 - Pain in left shoulder Coding Level of Care Code Est Pt Level 3 (65719) Complex EM visit Add On G2211 Diagnoses Arthritis of left acromioclavicular joint M19.012 Strain of left rotator cuff capsule S46.012A
[2024-06-29 15:21] VITALS: BMI 19.5
== END 2024-06-29 16:09 | disposition home or self-care (01) ==
LOC: HO.HOS 15:04
PROVIDERS: PCP Internal Medicine; Visit Provider Physician Assistant
DX: M19.012 Primary osteoarthritis, left shoulder (principal); S46.012A Strain of muscle(s) and tendon(s) of the rotator cuff of left shoulder, initial encounter
CPT/HCPCS: 99213; G2211

== ENCOUNTER → 2024-06-29 15:05 | Outpatient (BNV) | payer MEDICARE, SELFPAY | PROVIDERS: Visit Provider Radiology Diagnostic Radiology | DX: M25.512 Pain in left shoulder (principal) | CPT/HCPCS: 73030 ==

== ENCOUNTER 2024-07-02 08:00 | Outpatient (RCR) | payer MEDICARE, SELFPAY ==
--- NOTE | 2024-06-02 08:52 | MHC.PT.EP ---
[facility] [place] Office [place] Office [place] Office [address] Jermaine Garrido [address] [phone] F: [phone] F: [phone] F: [phone] F: [phone] Physical Therapy Plan of Care Date of Evaluation: 06/02/24 Date of Surgery: Diagnosis: rotator cuff sprain, left Assessment: Patient is a 68 year old R handed male who presents with s/s consistent with L shoudler pain, rotation cuff sprain. 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 Patient past medical history includes knee pain, smoking. Current impairments include pain, posture, ROM, strength, activity tolerance and functional mobility. Functional limitations include decreased ability to reach, lift, dress, carry, push, pull, sleep and dress. Patient is motivated with good rehab potential. Skilled PT will address impairments and functional limitations in order to achieve goals. Frequency and Duration: The patient will be seen 2x/week for 5 weeks Short Term Goals: I with HEP - 2 weeks AROM flexion 150 pain free - 3 weeks ER AROM 65 and pain free - 3 weeks Care Home Goals: improved postural awareness - 5 weeks SPADI 50/130 or better - 5 weeks Strength 4/5 grossly - 5 weeks Max pain with sleep and daily activities 4/10 - 5 weeks Treatment Plan: Modalities to reduce pain, spasms and effusion. Manual therapy to restore motion and function. Therapeutic exercise to improve strength and flexibility. Neuromuscular re-education for posture and balance. Therapeutic activities to return to functional activities of daily living. Electronically signed by: Alcides Eng, PT Please sign and return to therapist. Thank you for your referral.
--- NOTE | 2024-08-28 09:25 | MHC.PT.DC ---
[facility] [place] Office [place] Office [place] Office [address] Jermaine Garrido [address] [phone] F: [phone] F: [phone] F: [phone] F: [phone] Physical Therapy Discharge Report Diagnosis: rotator cuff sprain, left Date of Surgery: Date of Evaluation: 06/02/24 Date of Discharge: Treatments to Date: 10 Cancellations to Date: No Shows to Date: Discharge Status: Improved Function Independent with HEP Patient Elected to Stop Discharge Summary: 07/02; Discussed with pt he has 2 remaining visits NW and then would like eval of knee. Pt is to cont with HEP [place] dispense present program. 06/30; Pt progressing slowly. Discussed importance of HEP over weekend. Pt unable to perform s/l abd with 1 lb and s/l ext rot woth 1 lb to 10 degrees. 06/25; Pt stated s/l ER with wt was sl easier than it has been in the past sessions. Pt seesing progress and wishes to cont a few more sessions. 06/23;Pt fatigued after exs. Modified ROM to decrease crunching. 06/19/24: pt ER strength with min to no progress. ROM is progressing well and pt continues with good motivation. we will continue to progress as tolerated. 06/17; Pt ROM progrssing. Pt fatigues quickly with PRE's. Modifies exs to decrease crepitis. Discussed with therapist progress and cont with therapy for a few more weeks. 06/10; Pt fatigued with RTC strengthening. Pt modified range to decrease crepitis. 06/09; Pt had palpable crepitis with certain movements, modified ROM. Pt fatigued after A sh exs. Pt progressing with ROM. 06/04/24: pt progressing with ROM, cuff strength. pt encouraged with tolerance. issued band for b/l ER. Continue to progress as tolerated. Patient is a 68 year old R handed male who presents with s/s consistent with L shoudler pain, rotation cuff sprain. 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 Patient past medical history includes knee pain, smoking. Current impairments include pain, posture, ROM, strength, activity tolerance and functional mobility. Functional limitations include decreased ability to reach, lift, dress, carry, push, pull, sleep and dress. Patient is motivated with good rehab potential. Skilled PT will address impairments and functional limitations in order to achieve goals. Electronically signed by: Alcides Eng, PT Please sign and return to therapist. Thank you for your referral.
== END 2024-08-28 09:25 | disposition home or self-care (01) ==
LOC: HO.PTCHIC 08:00
PROVIDERS: PCP Internal Medicine; Visit Provider Internal Medicine
DX: S43.422A Sprain of left rotator cuff capsule, initial encounter (principal)
CPT/HCPCS: 97110; 97140; 97162

== ENCOUNTER 2024-07-02 10:16 | Outpatient (AMB) | payer MEDICARE, SELFPAY ==
[2024-07-02 10:20] VITALS: BMI 19.5
--- NOTE | 2024-07-02 10:20 | MHC.OFFVIS ---
Vital Signs 07/02/24 10:20 Height 6 ft 3 in Weight 156 lb BMI 19.5 Intake Visit Reasons: OV - Left TKA 09/08/24 Intake Note: Linus is a 68 year old male who presents today for a follow up of his left knee OA. He is currently booked for a Left TKA 09/08/2024 Allergies Penicillins [PENICILLINS] Allergy (Unknown, Verified 07/02/24 10:20) UNKNOWN SHELLFISH Allergy (Severe, Uncoded 07/02/24 10:20) SWELLING HPI HPI OV - Left TKA 09/08/24: Details: Linus is a 68 year old male who presents today for a follow up of his left knee OA. He is currently booked for a Left TKA 09/08/2024. He has continued to have swelling and pain in his left knee. He got so bad a couple of months ago that he could barely walk. Now he is walking but states his knee gives way and causes him pain. He is doing well otherwise. He is about to get . He states he is not drinking or doing an the illicit drugs but she does smoke about 6-8 cigarettes a day. He is seeing is liver doctor and tells me his liver is stable. He does not note easy bleeding. [facility] Medical History HCV (hepatitis C virus) Nicotine dependence, cigarettes, uncomplicated MRSA (methicillin resistant Staphylococcus aureus) TMJ (dislocation of temporomandibular joint) Tubular adenoma of colon Surgical History History of liver biopsy History of colonoscopy History of bronchoscopy History of right knee surgery Social History Are you a primary laboratory animal care veterinarian to a significant other at home: Yes (takes care of mother) Do you presently have visiting nurse or other home services: Yes (hospice visiting cynthia) Patient Tobacco Use Status: Current everyday Tobacco user Tobacco use type: Cigarette Cigarette Packs Per Day: 0.5 Cigarettes Per Day: 10.0 Substance Use Type: Crack/Cocaine Physical Exam Vital Signs: BMI result Body Mass Index 19.5 Extrem Other: No effusion Medial compartment mild tenderness to palpation. Near full range of motion. No lateral tenderness to palpation. Results Reviewed Results Reviewed: Left knee radiographs show prior ACL reconstruction with moderate arthritic changes especially in the patellofemoral joint and chondrocalcinosis. Assessment & Plan Assessment & Plan (1) Osteoarthritis of left knee: Code(s): M17.12 - Unilateral primary osteoarthritis, left knee Category: Medical Plan: This is a 60-year-old gentleman with left knee osteoarthritis. His knee is unstable with failed ACL reconstruction and swells and causes pain regularly. I discussed options with him and we continue to agree on proceeding forward with knee arthroplasty. I did discuss the risk of infection and bleeding and complications associated with his liver disease. He obviously will need medical clearance which I think he is in the process of getting. The results of his labs suggest controlled chronic liver disease with no evidence of HCV I do think he needs to stop smoking and I told him this. We will cancel the case the still smoking given his other medical comorbidities. I did discuss in addition the risks, benefits and alternatives to surgery including, but not limited to the risk of infection, loosening, fracture, aseptic loosening, need for additional surgery, medical complications associated with surgery including infections, organ failure, cardiopulmonary disease. He expressed understanding and we will proceed forward accordingly. Coding Level of Care Code Est Pt Level 3 (44772) Diagnoses Osteoarthritis of left knee M17.12
--- OUTSIDE RECORDS SUMMARY | 2024-07-02 11:16 | XMS_ITS | Clinical Summary ---
Author Organization [facility] Address [address] [place] [address] Phone Care Team Providers Care Pigment Processor Name Role Phone Flor Chandra MD Primary [...] this topic Insurance [employer] Care Teams Pigment Processor Relationship Specialty Start Date End Date Flor Chandra MD [address] [place] [address] PCP - General 02/29/20
== END 2024-07-02 10:40 | disposition home or self-care (01) ==
LOC: HO.HOS 10:16
PROVIDERS: PCP Internal Medicine; Visit Provider Orthopaedic Surgery
DX: M17.12 Unilateral primary osteoarthritis, left knee (principal)
CPT/HCPCS: 99213

== ENCOUNTER → 2024-07-02 10:16 | Outpatient (BNVA) | payer MEDICARE, SELFPAY | PROVIDERS: PCP Internal Medicine; Visit Provider Orthopaedic Surgery | DX: M17.12 Unilateral primary osteoarthritis, left knee (principal) | CPT/HCPCS: 99212 ==

== ENCOUNTER 2024-07-05 20:46 | Inpatient (IN) | payer MEDICARE, SELFPAY ==
--- NOTE | ~2024-07-05 | XR_ITS ---
CLINICAL HISTORY: sob 1 view chest x-ray Comparison: CT/SR - CT LUNG SCREENING - 11/27/22 16:40 EDT Findings: Hyperexpanded, emphysematous lungs. No consolidation or infiltrate. Normal size heart. No acute fracture. IMPRESSION: 1. No acute findings. This document has been electronically signed by: Henry Fry MD, PHD on 07/05/2024 23:03:07
[2024-07-05 21:41] VITALS: BP 147/91; PULSE 72; RESP 18; TEMP 36.6; O2SAT 87; BMI 19.8
--- NOTE | 2024-07-05 22:11 | ECG_ITS ---
Test Reason : SOB Blood Pressure : */* mmHG Vent. Rate : 68 BPM Atrial Rate : 68 BPM P-R Int : 168 ms QRS Dur : 92 ms QT Int : 420 ms P-R-T Axes : 90 -64 61 degrees QTcB Int : 446 ms Normal sinus rhythm Left axis deviation Septal infarct , age undetermined Abnormal ECG When compared with ECG of 18-Nov-2023 10:58, Vent. rate has decreased by 93 bpm QRS duration has increased Referred By: Generic ED Physician Electronically Signed By: Scout Valdivia
[2024-07-05 22:41] LABS: MANUAL DIFF FLAG NO
[2024-07-05 22:44] LABS: Basophils Absolute Auto 0.1 X10*3/uL (0.0-0.2); Basophils Percent Auto 0.8 % (0-2); Eosinophils Absolute Auto 0.8 X10*3/uL (0.0-0.4); Eosinophils Percent Auto 6.6 % (0-4); Hemoglobin 12.5 g/dl (14.0-18.0); Imm Gran Abs Auto 0.03 X10*3/uL (0.00-0.03); Imm Gran Pct Auto 0.3 % (0.0-0.4); Lymphocytes Absolute Auto 3.1 X10*3/uL (1.2-4.9); Lymphocytes Percent Auto 26.7 % (20-40); Mean Corpuscular HGB Conc 32.9 g/dl (31.0-36.0); Mean Corpuscular Volume 91.3 fL (80.0-98.0); Monocytes Percent Auto 8.8 % (2-11); Neutrophils Absolute Auto 6.6 x10*3/uL (2.0-8.3); Neutrophils Percent Auto 56.8 % (45-73); Platelet Count 240 X10*3/uL (160-400); Red Blood Count 4.16 X10*6/uL (4.60-5.80); Red Cell Distribution Width 15.3 % (11.0-16.0); White Blood Count 11.6 X10*3/uL (4.8-10.8)
[2024-07-05 22:52] VITALS: BP 137/93; PULSE 68; RESP 17; TEMP 36.6; O2SAT 97
[2024-07-05 22:58] LABS: Alanine Aminotransferase 34 U/L (0-40); Alkaline Phosphatase 106 U/L (39-117); Anion Gap 11 (12-20); Aspartate Amino Transferase 45 U/L (5-37); Bilirubin Total 0.4 mg/dL (0.0-1.0); Blood Urea Nitrogen 31 mg/dL (9-16); Calcium 8.6 mg/dL (8.4-10.2); Carbon Dioxide 27 mmol/L (22-29); Chloride 107 mmol/L (96-108); Creatinine Clr Calc Pharmacy 62.8; Estimated Glomerular Filt Rate > 60; Glucose Random 104 mg/dL (60-115); Magnesium 2.1 mg/dL (1.6-2.6); Potassium 4.1 mmol/L (3.3-5.1); Sodium 141 mmol/L (135-145); Total Protein 6.7 g/dL (6.5-8.0)
[2024-07-05 23:04] LABS: B Type Natriuretic Peptide 71 pg/mL (<100)
[2024-07-05 23:05] LABS: Troponin-I High Sensitivity 7.1 ng/L (<3.5-35.0)
[2024-07-05 23:20] LABS: Influenza A PCR NEGATIVE (Negative); Influenza B PCR NEGATIVE (Negative); Resp Syncy Virus RNA Qual PCR NEGATIVE (Negative); SARS COV2 PCR INHOUSE NEGATIVE (Negative)
[2024-07-06] VITALS (12 sets, daily range): BP systolic 109–169; BP diastolic 57–108; PULSE 75–93; RESP 14–23; TEMP 36.2–36.7; O2SAT 84–99; BMI 19.8
--- NOTE | 2024-07-06 00:38 | PC.NURSE ---
pt ambulated to restroom upon return from the restroom, pt was very sob, working hard to breath. O2 sat was 80% pt placed on 4L, now 02 sat of 95%
--- NOTE | 2024-07-06 00:46 | ECG_ITS ---
Test Reason : Rhythm check Blood Pressure : */* mmHG Vent. Rate : 92 BPM Atrial Rate : 92 BPM P-R Int : 160 ms QRS Dur : 96 ms QT Int : 324 ms P-R-T Axes : 83 -51 67 degrees QTcB Int : 400 ms Sinus rhythm Left anterior fascicular block Minimal voltage criteria for LVH, may be normal variant ( [place] product ) Septal infarct (cited on or before 05-Jul-2024) Abnormal ECG When compared with ECG of 05-Jul-2024 22:45, No significant changes seen Referred By: Paola Bella Electronically Signed By: Scout Valdivia
[2024-07-06] MEDS: Magnesium Sulfate/H2O 2 GM/50 ML PIGGYBACK IV (00:53)
--- NOTE | 2024-07-06 00:55 | ED_ITS ---
HPI - SOB/Dyspnea General Chief Complaint: Dyspnea Stated Complaint: SOB feels something in lungs Time Seen by Provider: 07/06/24 00:44 Source: patient Mode of arrival: ambulatory Limitations: no limitations History of Present Illness ED Provider: Dr. Paola Bella HPI Narrative: Patient comes to the emergency room complaining of shortness of breath with exertion. Patient has history of COPD and uses nebulization treatments at home. Patient states that his inhaler has not been working well for him. Patient is still short of breath. When patient arrived, it was noted that patient's oxygen saturation was 87% on room air. Before I saw the patient, while he was waiting to be seen in the main ED, patient's nurse told me that the patient got up to go to the bathroom, when he returned, patient was significantly short of breath, oxygen saturation 80% with a heart rate in the 160s to 170s. Patient denied chest pain Related Data Home Medications ?Medication ?Instructions ?Recorded ?Confirmed naproxen 500 mg tablet 500 mg PO BID 06/29/24 06/29/24 Previous Rx's ?Medication ?Instructions ?Recorded cane #1 ea 05/27/24 walker #1 ea 05/27/24 walker #1 ea 06/26/24 Allergies Allergy/AdvReac Type Severity Reaction Status Date / Time Penicillins [PENICILLINS] Allergy Unknown UNKNOWN Verified 07/05/24 21:51 SHELLFISH Allergy Severe SWELLING Uncoded 07/05/24 21:51 Review of Systems 2 Review of Systems: Constitutional : No Weight loss, No Fever, No Chills, No Night Sweats, No Fatigue, No Malaise ENT/Mouth : No Hearing loss, No Ear Pain, No Nasal Congestion, No Sinus Pain, No Hoarseness, No sore throat, No Rhinorrhea, No Swallowing Difficulty Eyes: No Eye Pain, No Swelling, No Redness, No Foreign Body, No Discharge, No Vision Changes Cardiovascular : Complaining of palpitations, no chest pain Respiratory : Complaining of cough, wheezing and shortness of breath Gastrointestinal : No Nausea, No Vomiting, No Diarrhea, No Constipation, No abdominal Pain, No Hematochezia, No Melena Genitourinary : no irregular bleeding, No Dysuria, No Urinary Frequency, No Hematuria, No Urinary Incontinence, No Urgency, No Flank Pain, No Urinary Flow Changes, No Hesitancy Musculoskeletal : No joint pain, No Myalgias, No Joint Swelling Skin : No Skin Lesions, No rash Neuro : No Weakness, No Numbness, No Paresthesias, No Loss of Consciousness, No Dizziness, No Headache Psych : No Anxiety/Panic, No Depression, No SI/HI/AH/VH, No Social Issues, Heme/Lymph: No Bruising, No Bleeding,No Lymphadenopathy Endocrine : No Polyuria, No Polydipsia, No Temperature Intolerance [facility] Past Medical History Medical History HCV (hepatitis C virus) Nicotine dependence, cigarettes, uncomplicated MRSA (methicillin resistant Staphylococcus aureus) TMJ (dislocation of temporomandibular joint) Tubular adenoma of colon Surgical History History of liver biopsy History of colonoscopy History of bronchoscopy History of right knee surgery Social History Social History Are you a primary director career services to a significant other at home: Yes (takes care of mother) Do you presently have visiting nurse or other home services: Yes (hospice visiting angel) Patient Tobacco Use Status: Current everyday Tobacco user Tobacco use type: Cigarette Cigarette Packs Per Day: 0.5 Cigarettes Per Day: 10.0 Smoked in Last 30 Days: Yes Use of substances other than those prescribed or required for medical reasons: No Substance Use Type: Crack/Cocaine Advance Directives: No Advance Directives Information Provided: Yes Do you have a plan to hurt others: No Plan Physical Exam 2 Vital Signs: Vital Signs: Last Vital Signs Temp 97.8 F 07/06/24 03:23 Pulse 79 07/06/24 03:23 Resp 20 07/06/24 03:23 BP 130/88 07/06/24 03:23 Pulse Ox 84 L 07/06/24 04:48 O2 Del Method Nasal Cannula 07/06/24 03:23 O2 Flow Rate 2 07/06/24 03:23 BMI result Body Mass Index 19.8 Const: Other: Appearance: Alert. Oriented X3. Tachypneic, short of breath Eyes: Pupils equal, round and reactive to light. ENT: Pharynx normal. Neck: Normal inspection. Neck supple. No lymph nodes noted. No crepitus CVS: Patient's heart rate in the 160s to 170s Respiratory: Patient had decreased breath sounds, wheezing Abdomen: Soft and nontender. No rigidity. No distention. Skin: Skin warm and dry. Normal skin color. Normal skin turgor. Extremities: No lower extremity edema. No Lacerations. No Rash Neuro: Oriented X 3. No motor deficit. No sensory deficit. Moving all extremities. No slurred speech. CN 2 through 12 grossly intact Psych: calm, cooperative, normal affect Course Course Course Narrative: Patient got up to the bathroom, when he came back, from the monitor it looked like patient was on SVT. By the time that we got the EKG, it had resolved to sinus rhythm. I reviewed patient's previous notes. In October of 2023, the patient arrived to the ED in SVT with a heart rate in the 160s and 170s, similar presentation to today Patient was put on 2 L of O2 Medications Administered Discontinued Medications Generic Name Dose Route Start Last Admin Trade Name Freq PRN Reason Stop Dose Admin Ceftriaxone Sodium 1 gm 07/06/24 00:58 07/06/24 01:27 Ceftriaxone Sodium 1 Gm Vial IVPUSH 07/06/24 00:59 1 gm ONCE ONE Administration Albuterol Sulfate 7.5 mg/ 0 mg 07/06/24 01:14 07/06/24 01:16 Albuterol/Ipratropium 3 ml INHALE 07/06/24 01:15 1 each ONCE ONE Administration Magnesium Sulfate 2 gm in 50 mls @ 25 mls/hr 07/06/24 00:46 07/06/24 03:23 Magnesium Sulfate/H2o IV 07/06/24 02:45 Infused ONCE ONE Infusion Sodium Chloride 1,000 mls @ 999 mls/hr 07/06/24 00:58 07/06/24 03:23 Ns IVCONT 07/06/24 01:58 Infused .Q1H1M ONE Infusion Azithromycin 500 mg/ Sodium 250 mls @ 125 mls/hr 07/06/24 00:58 07/06/24 03:23 Chloride IV 07/06/24 02:57 Infused ONCE ONE Infusion Methylprednisolone Sodium Succinate 125 mg 07/06/24 00:46 07/06/24 00:53 Methylprednisolone Sod Succ 125 Mg Vial IVPUSH 07/06/24 00:47 125 mg ONCE ONE Administration Medical Decision Making Medical Decision Making [facility] Narrative: Patient receive IV fluids, albuterol, Solu-Medrol, magnesium, also empirically treated with ceftriaxone and azithromycin. Patient states that he feels much better after the treatment. However, when we ambulated the patient, his oxygen saturation dropped to 84%. Also, earlier today patient had an episode of supraventricular tachycardia with a heart rate between 160 and 170. Patient was instructed to do vagal maneuvers and the SVT resolved prior to getting an EKG I reviewed patient's records, seems that in October of 2023, when patient arrived he had SVT as well. Patient's vitals stable. I discussed the patient with , patient being admitted Differential Diagnosis Differential Diagnoses: The differential diagnosis associated with the presentation includes Admission/Observation Consideration of admission/observation: Escalation of care including admission/observation considered Lab Data MDM Lab Attestation statement: I reviewed the patient's lab results. 07/05/24 22:37 07/05/24 22:37 Labs: Lab Results 07/05/24 07/06/24 Range/Units 22:37 01:25 WBC 11.6 H (4.8-10.8) X10*3/uL RBC 4.16 L (4.60-5.80) X10*6/uL Hgb 12.5 L (14.0-18.0) g/dl Hct 38.0 L (42.0-52.0) % MCV 91.3 (80.0-98.0) fL MCH 30.0 (27.0-33.0) pg MCHC 32.9 (31.0-36.0) g/dl RDW 15.3 (11.0-16.0) % Plt Count 240 (160-400) X10*3/uL MPV 9.0 L (9.4-12.4) fL Immature Gran % (Auto) 0.3 (0.0-0.4) % Neut % (Auto) 56.8 (45-73) % Lymph % (Auto) 26.7 (20-40) % White % (Auto) 8.8 (2-11) % Eos % (Auto) 6.6 H (0-4) % Baso % (Auto) 0.8 (0-2) % Lymph # (Auto) 3.1 (1.2-4.9) X10*3/uL White # (Auto) 1.0 (0.1-1.2) X10*3/uL Eos # (Auto) 0.8 H (0.0-0.4) X10*3/uL Baso # (Auto) 0.1 (0.0-0.2) X10*3/uL Abs Immat Gran (auto) 0.03 (0.00-0.03) X10*3/uL Absolute Neuts (auto) 6.6 (2.0-8.3) x10*3/uL Absolute Nucleated RBC 0.000 (0.0-0.012) X10*3/uL Nucleated RBC % (auto) 0.0 (0.0-0.2) /100WBC Sodium 141 (135-145) mmol/L Potassium 4.1 (3.3-5.1) mmol/L Chloride 107 (96-108) mmol/L Carbon Dioxide 27 (22-29) mmol/L Anion Gap 11 L (12-20) BUN 31 H (9-16) mg/dL Creatinine 1.14 (0.5-1.4) mg/dL Estim Creat Clear Calc 62.8 Estimated GFR > 60 Random Glucose 104 (60-115) mg/dL Lactic Acid 1.1 (0.5-2.0) mmol/L Calcium 8.6 (8.4-10.2) mg/dL Magnesium 2.1 (1.6-2.6) mg/dL Total Bilirubin 0.4 (0.0-1.0) mg/dL AST 45 H (5-37) U/L ALT 34 (0-40) U/L Alkaline Phosphatase 106 (39-117) U/L Troponin I High Sens 7.1 D (<3.5-35.0) ng/L B-Natriuretic Peptide 71 (<100) pg/mL Total Protein 6.7 (6.5-8.0) g/dL Albumin 4.0 (3.5-5.0) g/dL Influenza Type A (PCR) NEGATIVE (Negative) Influenza Type B (PCR) NEGATIVE (Negative) RSV RNA Qual (PCR) NEGATIVE (Negative) SARS-CoV-2 RNA (RT-PCR) NEGATIVE (Negative) Independent Interpretation I performed an independent interpretation of an: Plain X-Ray Radiology Impression Discussion of test interpretation with radiology: I have reviewed the radiologist's reading. Radiologist Impression: Hyperexpanded, emphysematous lungs. No consolidation or infiltrate. Normal size heart. No acute fracture. IMPRESSION: 1. No acute findings. Critical Care Time Critical Care Time Critical Care Time: Yes Total Critical Care Time: 60 Attestation: I have personally provided critical care time. Time includes review of lab data, radiology results, discussion with consultants, and monitoring for potential decompensation. Intervention performed as documented. Discharge Plan Discharge Clinical Impression: Chronic lung disease, SVT (supraventricular tachycardia) Patient Disposition: Admitted As Inpatient Prescriptions: No Action (DME) cane Device See Rx Instructions .MEDSUPPLY Qty: 1 0RF Rx Instructions: As directed (DME) walker Misc See Rx Instructions .MEDSUPPLY Qty: 1 0RF Rx Instructions: Folding Front wheeled walker duration 99 days (DME) walker Misc See Rx Instructions .MEDSUPPLY Qty: 1 0RF Rx Instructions: Folding Front wheeled walker duration 99 days naproxen 500 mg tablet 500 mg PO BID Print Language: Yakut
[2024-07-06] MEDS: 0.9 % Sodium Chloride 1,000 ML 999 ML IVCONT (01:04)
[2024-07-06] MEDS: Albuterol Sulfate 7.5 MG, Albuterol/Iprat 2.5/0.5MG 3 ML 3 ML INHALE (01:16)
[2024-07-06] MEDS: cefTRIAXone sodium 1 GM VIAL IVPUSH (01:27)
[2024-07-06] MEDS: Azithromycin 500 MG in 0.9 % Sodium Chloride 250 ML 125 MG IV (01:28)
[2024-07-06 01:58] LABS: Lactic Acid 1.1 mmol/L (0.5-2.0)
--- NOTE | 2024-07-06 05:49 | PM.IMHP ---
History of Present Illness Date of Service: 07/06/24 Chief Complaint: Dyspnea This is a 68-year-old male with pertinent history of COPD not on home oxygen, tobacco use disorder, left knee osteoarthritis who presents to the emergency department for evaluation of dyspnea. Patient states his symptoms started 1 day prior to presentation. He has been having dyspnea which is worse with exertion. No orthopnea or PND. Also has been having productive cough. Has associated wheezing which is not relieved. He continues to smoke cigarettes. Patient denies fever, chills, chest pain, palpitations, abdominal pain, changes in urinary or bowel habits. In the emergency department, patient was found to be satting 87% on room air and placed on supplemental oxygen. Patient was found to be satting 80% upon ambulation. He was given IV steroids and breathing treatments in the ER. Review of Systems Constitutional: Constitutional: Reports fatigue Cardiovascular: Cardiovascular: Reports dyspnea on exertion Respiratory: Respiratory: Reports cough, Reports dyspnea on exertion and Reports wheezing Gastrointestinal: Gastrointestinal: Reports no additional gastrointestinal complaints Genitourinary: Genitourinary: Reports no additional male genitourinary complaints Endocrine: Endocrine: Reports fatigue Allergic/Immunologic: Allergic/Immunologic: Reports wheezing [facility] Medical History HCV (hepatitis C virus) Nicotine dependence, cigarettes, uncomplicated MRSA (methicillin resistant Staphylococcus aureus) TMJ (dislocation of temporomandibular joint) Tubular adenoma of colon Pertinent family history: No family history of early CAD Surgical History History of liver biopsy History of colonoscopy History of bronchoscopy History of right knee surgery Social History Are you a primary managed care director to a significant other at home: Yes (takes care of mother) Do you presently have visiting nurse or other home services: Yes (hospice visiting angels) Patient Tobacco Use Status: Current everyday Tobacco user Tobacco use type: Cigarette Cigarette Packs Per Day: 0.5 Cigarettes Per Day: 10.0 Smoked in Last 30 Days: Yes Use of substances other than those prescribed or required for medical reasons: No Substance Use Type: Crack/Cocaine Advance Directives: No Advance Directives Information Provided: Yes Do you have a plan to hurt others: No Plan Meds Allergies Allergy/AdvReac Type Severity Reaction Status Date / Time Penicillins [PENICILLINS] Allergy Unknown UNKNOWN Verified 07/05/24 21:51 SHELLFISH Allergy Severe SWELLING Uncoded 07/05/24 21:51 Home Medications ?Medication ?Instructions ?Recorded ?Confirmed ?Last Taken ?Type naproxen 500 mg tablet 500 mg PO BID 06/29/24 06/29/24 Unknown History Physical Exam Vital Signs and Narrative: Vital Signs: Last Vital Signs Temp 97.8 F 07/06/24 03:23 Pulse 79 07/06/24 03:23 Resp 20 07/06/24 03:23 BP 130/88 07/06/24 03:23 Pulse Ox 84 L 07/06/24 04:48 O2 Del Method Nasal Cannula 07/06/24 03:23 O2 Flow Rate 2 07/06/24 03:23 BMI result Body Mass Index 19.8 Middle-aged male lying in bed in mild distress on supplemental oxygen Neck supple, no JVD Regular rate and rhythm, S1-S2 heard Bilateral wheezing appreciated Abdomen soft nontender, no guarding, no rigidity Patient is awake, alert and oriented to self, place, time and person ; no focal motor deficit Psych: Normal mood No pedal edema Results Labs 07/05/24 22:37 07/05/24 22:37 Labs: Laboratory Results - last 24 hr 07/05/24 07/06/24 22:37 01:25 MCV 91.3 MCH 30.0 MCHC 32.9 RDW 15.3 Plt Count 240 MPV 9.0 L Immature Gran % (Auto) 0.3 Neut % (Auto) 56.8 Lymph % (Auto) 26.7 [place] % (Auto) 8.8 Eos % (Auto) 6.6 H Baso % (Auto) 0.8 Lymph # (Auto) 3.1 [place] # (Auto) 1.0 Eos # (Auto) 0.8 H Baso # (Auto) 0.1 Abs Immat Gran (auto) 0.03 Absolute Neuts (auto) 6.6 Absolute Nucleated RBC 0.000 Nucleated RBC % (auto) 0.0 Anion Gap 11 L Estim Creat Clear Calc 62.8 Estimated GFR > 60 Random Glucose 104 Lactic Acid 1.1 Calcium 8.6 Magnesium 2.1 Total Bilirubin 0.4 AST 45 H ALT 34 Alkaline Phosphatase 106 B-Natriuretic Peptide 71 Total Protein 6.7 Albumin 4.0 Influenza Type A (PCR) NEGATIVE Influenza Type B (PCR) NEGATIVE RSV RNA Qual (PCR) NEGATIVE SARS-CoV-2 RNA (RT-PCR) NEGATIVE Assessment and Plan (1) COPD exacerbation: Status: Acute (2) Hypoxia: Status: Acute Plan This is a 68-year-old male with pertinent history of COPD not on home oxygen, tobacco use disorder, left knee osteoarthritis who presents to the emergency department for evaluation of dyspnea. #. Acute hypoxemic respiratory failure due to acute exacerbation of COPD: Will admit patient with supplemental oxygen. Scheduled and p.r.n. DuoNebs. Initiating systemic steroids. Continue home inhaler. Initiating azithromycin for pleiotropic effect. #. Tobacco use disorder: NRT while in the hospital. Counseled regarding cessation #. Left knee osteoarthritis: Has surgery scheduled on 09/08 Med rec pending DVT prophylaxis: Lovenox Full code Admit as inpatient and will require two night minimum hospital stay for supplemental oxygen (as above), which is not possible in a lesser acute setting. Quality Stroke Does the patient have a stroke diagnosis?: No VTE Prior VTE?: No VTE Risk Level:: Medical - moderate - high VTE Device Contraindication: Treatment Not Indicated VTE Drug Contraindication: N/A - Med Ordered
[2024-07-06] MEDS: Enoxaparin Sodium 40 MG/0.4 ML SYRINGE SUBCUT (06:15)
[2024-07-06] MEDS: Albuterol/Iprat 2.5/0.5MG 3 ML AMPUL.NEB INHALE ×4 (07:27→19:47)
[2024-07-06] MEDS: predniSONE 20 MG TABLET 40 MG PO (07:48)
[2024-07-06] MEDS: 0.9 % Sodium Chloride Flush 3 ML SYRINGE IVFLUSH (07:49)
--- NOTE | 2024-07-06 09:03 | PHA.MEDREC ---
Pharmacy Consult ? Medication Reconciliation Pharmacy has completed the medication reconciliation. Spoke with patient at bedside, he states that he still takes furosemide, naproxen, and tamsulosin. He said the Budesonide/formoterol inhaler was changed to Trelegy recently due to insurance issues. Last took his medication yesterday morning.
[2024-07-06] MEDS: Tamsulosin HCL 0.4 MG CAPSULE PO (11:20)
[2024-07-06] MEDS: Furosemide 20 MG TABLET PO (11:20)
--- NOTE | 2024-07-06 13:27 | PM.EVENT ---
Event Note Date of Service: 07/06/24 Event Note: Patient seen and examined. Patient admitted for COPD exacerbation-still feeling short of breath with minimal exertion, respiratory status is not optimal yet. Physical exam: As per H and P. Chest: Air entry somewhat similar to yesterday, has wheezing. Assessment and plan per h&P We will continue and nebs, steroids svt episode : no new episode sofar,please see h&p. Time Spent With Patient Time: Total time managing care of this patient today ____ minutes.
[2024-07-06 14:43] LABS: Thyroid Stimulating Hormone 1.64 uIU/mL (0.32-4.0)
--- NOTE | 2024-07-06 15:50 | MHC.CM.PN ---
pt lives with his new and mother pt is independent has a ride home dc plan home no services
[2024-07-06] MEDS: Nicotine 7 MG PATCH.TD24 TRANSDERMA (18:12)
[2024-07-06] MEDS: Benzonatate 100 MG CAPSULE PO (19:29)
[2024-07-07] VITALS (11 sets, daily range): BP systolic 98–151; BP diastolic 67–109; PULSE 82–139; RESP 16–18; TEMP 36.7–37.1; O2SAT 92–100
[2024-07-07] MEDS: 0.9 % Sodium Chloride Flush 3 ML SYRINGE IVFLUSH ×3 (00:20→20:28)
[2024-07-07] MEDS: Azithromycin 500 MG in 0.9 % Sodium Chloride 250 ML 125 MG IV (00:20)
--- NOTE | 2024-07-07 04:01 | PC.NURSE ---
pt had 7 beats of v-tach. notified.
[2024-07-07] MEDS: Enoxaparin Sodium 40 MG/0.4 ML SYRINGE SUBCUT (05:41)
[2024-07-07 05:45] LABS: Basophils Percent Auto 0.2 % (0-2); Eosinophils Absolute Auto 0.2 X10*3/uL (0.0-0.4); Eosinophils Percent Auto 1.2 % (0-4); Hematocrit 36.6 % (42.0-52.0); Hemoglobin 12.2 g/dl (14.0-18.0); Imm Gran Abs Auto 0.11 X10*3/uL (0.00-0.03); Imm Gran Pct Auto 0.6 % (0.0-0.4); Lymphocytes Absolute Auto 3.6 X10*3/uL (1.2-4.9); Lymphocytes Percent Auto 19.8 % (20-40); MANUAL DIFF FLAG SCAN; Mean Corpuscular HGB Conc 33.3 g/dl (31.0-36.0); Mean Corpuscular Hemoglobin 30.6 pg (27.0-33.0); Mean Corpuscular Volume 91.7 fL (80.0-98.0); Mean Platelet Volume 9.2 fL (9.4-12.4); Monocytes Absolute Auto 1.6 X10*3/uL (0.1-1.2); Monocytes Percent Auto 8.8 % (2-11); Neutrophils Absolute Auto 12.5 x10*3/uL (2.0-8.3); Neutrophils Percent Auto 69.4 % (45-73); Platelet Count 242 X10*3/uL (160-400); Red Blood Count 3.99 X10*6/uL (4.60-5.80); Red Cell Distribution Width 15.4 % (11.0-16.0); SCAN SMEAR FLAG 1
[2024-07-07 06:06] LABS: Anion Gap 12 (12-20); Blood Urea Nitrogen 30 mg/dL (9-16); Calcium 8.7 mg/dL (8.4-10.2); Carbon Dioxide 26 mmol/L (22-29); Chloride 109 mmol/L (96-108); Creatinine Clr Calc Pharmacy 64.7; Estimated Glomerular Filt Rate > 60; Glucose Random 90 mg/dL (60-115); Potassium 4.6 mmol/L (3.3-5.1); Sodium 142 mmol/L (135-145)
[2024-07-07 06:09] LABS: SLIDE REVIEW VERIFIED
[2024-07-07 06:19] LABS: Thyroid Stimulating Hormone 1.84 uIU/mL (0.32-4.0)
[2024-07-07] MEDS: Nicotine 7 MG PATCH.TD24 TRANSDERMA (07:28)
[2024-07-07] MEDS: predniSONE 20 MG TABLET 40 MG PO (07:29)
[2024-07-07] MEDS: Tamsulosin HCL 0.4 MG CAPSULE PO (07:29)
[2024-07-07] MEDS: Furosemide 20 MG TABLET PO (07:33)
[2024-07-07] MEDS: Albuterol/Iprat 2.5/0.5MG 3 ML AMPUL.NEB INHALE ×3 (07:39→15:07)
--- NOTE | 2024-07-07 14:20 | P.PNIM_ITS ---
Subjective Subjective Date of Service: 07/07/24 Review of Systems Follow up COPD exacerbation Still with some wheezing with ambulation and sob Physical Exam 2 Vital Signs: Vital Signs: Last Vital Signs Temp 98.4 F 07/07/24 08:00 Pulse 90 07/07/24 11:42 Resp 16 07/07/24 11:42 BP 151/74 H 07/07/24 08:00 Pulse Ox 93 07/07/24 08:00 O2 Del Method Room Air 07/07/24 08:00 O2 Flow Rate 2 07/06/24 06:00 BMI result Body Mass Index 19.8 Appearing in no acute distress lung sounds expiratory wheezing heart regular rate rhythm, clear S1, S2 positive bowel sounds, abdomen is soft, nontender neuro patient is alert x3, no focal deficits Objective Data Active Medications Acetaminophen (Acetaminophen 325 Mg Tablet) 650 mg PO Q6H PRN PRN Reason: Pain, Mild 1-3,fever,headache Albuterol/Ipratropium (Albuterol/Iprat 2.5/0.5mg 3 Ml Ampul.Neb) 3 ml INHALE Q4H PRN PRN Reason: Shortness of Breath/Wheezing Albuterol/Ipratropium (Albuterol/Iprat 2.5/0.5mg 3 Ml Ampul.Neb) 3 ml INHALE RQ4H WHILE AWAKE [facility] Last Admin: 07/07/24 11:41 Dose: 3 ml Documented By: JAMARCUS Benzonatate (Benzonatate 100 Mg Capsule) 100 mg PO TID PRN PRN Reason: Cough Last Admin: 07/06/24 19:29 Dose: 100 mg Documented By: KISHOR Calcium Carbonate (Calcium Carbonate 750 Mg Tab.Chew) 750 mg PO Q4H PRN PRN Reason: Heartburn Enoxaparin Sodium (Enoxaparin Sodium 40 Mg/0.4 Ml Syringe) 40 mg SUBCUT Q24H [facility] Last Admin: 07/07/24 05:41 Dose: 40 mg Documented By: KISHOR Furosemide (Furosemide 20 Mg Tablet) 20 mg PO DAILY [facility]; Protocol Last Admin: 07/07/24 07:33 Dose: 20 mg Documented By: DOROTHY Guaifenesin (Guaifenesin 200 Mg/10 Ml 10 Ml Liquid) 10 ml PO Q4H PRN PRN Reason: Cough Azithromycin 500 mg/ Sodium (Chloride) 250 mls @ 125 mls/hr IV Q24H [facility] Last Infusion: 07/07/24 02:22 Dose: Infused Documented By: KISHOR Magnesium Hydroxide (Milk Of Magnesia 30 Ml Oral.Susp) 30 ml PO DAILY PRN PRN Reason: Constipation Melatonin (Melatonin 3 Mg Tablet) 6 mg PO BEDTIME PRN PRN Reason: Insomnia Nicotine (Nicotine 7 Mg Patch.Td24) 7 mg TRANSDERMA DAILY [facility] Last Admin: 07/07/24 07:28 Dose: 7 mg Documented By: DOROTHY Nicotine Polacrilex (Nicotine Polacrilex 2 Mg Gum) 2 mg BUCCAL Q2H PRN PRN Reason: Nicotine Cravings Ondansetron HCl (Ondansetron Hcl 4 Mg/2 Ml Vial) 4 mg IVPUSH Q8H PRN PRN Reason: Nausea and Vomiting Prednisone (Prednisone 20 Mg Tablet) 40 mg PO DAILY [facility] Last Admin: 07/07/24 07:29 Dose: 40 mg Documented By: DOROTHY Sodium Chloride (0.9 % Sodium Chloride Flush 3 Ml Syringe) 3 ml IVFLUSH QSHIFT [facility] Last Admin: 07/07/24 07:29 Dose: 3 ml Documented By: DOROTHY Tamsulosin HCl (Tamsulosin Hcl 0.4 Mg Capsule) 0.4 mg PO DAILY [facility] Last Admin: 07/07/24 07:29 Dose: 0.4 mg Documented By: DOROTHY Labs 07/07/24 05:36 07/07/24 05:36 Labs: Laboratory Results - last 24 hr 07/05/24 07/07/24 22:37 05:36 MCV 91.7 MCH 30.6 MCHC 33.3 RDW 15.4 Plt Count 242 MPV 9.2 L Immature Gran % (Auto) 0.6 H Neut % (Auto) 69.4 Lymph % (Auto) 19.8 L [place] % (Auto) 8.8 Eos % (Auto) 1.2 Baso % (Auto) 0.2 Lymph # (Auto) 3.6 [place] # (Auto) 1.6 H Eos # (Auto) 0.2 Baso # (Auto) 0.0 Abs Immat Gran (auto) 0.11 H Absolute Neuts (auto) 12.5 H Absolute Nucleated RBC 0.000 Nucleated RBC % (auto) 0.0 Smear Tech's Comments VERIFIED Anion Gap 12 Estim Creat Clear Calc 64.7 Estimated GFR > 60 Random Glucose 90 Calcium 8.7 TSH 1.64 1.84 Microbiology Microbiology Results: Microbiology 07/06/24 01:25 Blood Culture - Preliminary Blood - Venous No growth after 24 hours. 07/06/24 01:25 Blood Culture - Preliminary Blood - Venous No growth after 24 hours. Assessment and Plan (1) SVT (supraventricular tachycardia): Status: Acute (2) COPD exacerbation: Status: Acute Plan 68-year-old male with pertinent history of COPD not on home oxygen, tobacco use disorder, left knee osteoarthritis who presents to the emergency department for evaluation of dyspnea. Acute hypoxemic respiratory failure due to acute exacerbation of COPD supplemental oxygen to keep o2 sat >90% Scheduled and p.r.n. DuoNebs. Initiating systemic steroids. Continue home inhaler. Initiating azithromycin for pleiotropic effect. mucinex for dry cough SVT episode on admission and 7 beat run at 0400 this morning no further episodes Tobacco use disorder NRT while in the hospital. Counseled regarding cessation Left knee osteoarthritis Has surgery scheduled on 09/08 BPH tamsulosin DVT prophylaxis: Lovenox Full code Quality Stroke Does the patient have a stroke diagnosis?: No VTE Prior VTE?: No VTE Risk Level:: Medical - moderate - high VTE Device Contraindication: Treatment Not Indicated VTE Drug Contraindication: N/A - Med Ordered
--- NOTE | 2024-07-07 19:19 | ECG_ITS ---
Test Reason : arrythmia Blood Pressure : */* mmHG Vent. Rate : 139 BPM Atrial Rate : * BPM P-R Int : * ms QRS Dur : 88 ms QT Int : 240 ms P-R-T Axes : * -74 91 degrees QTcB Int : 365 ms Atrial fibrillation with rapid ventricular response Left axis deviation Septal infarct (cited on or before 05-Jul-2024) Abnormal ECG When compared with ECG of 06-Jul-2024 00:40, Atrial fibrillation has replaced Sinus rhythm Vent. rate has increased by 47 bpm Left anterior fascicular block is no longer Present ST now depressed in Inferior leads Nonspecific T wave abnormality, worse in Lateral leads Referred By: Belinda Wan Electronically Signed By: Scout Valdivia
[2024-07-07 19:22] LABS: Glucose, Whole Blood 223 mg/dL (60-115)
[2024-07-07] MEDS: Metoprolol Tartrate 5 MG/5 ML VIAL IVPUSH (19:22)
--- NOTE | 2024-07-07 19:24 | PM.EVENT ---
Event Note Date of Service: 07/07/24 Event Note: Rapid response was called for tachycardia. As per the nurse, patient sustaining heart rate in the 180s. Without intervention, patient's heart rate went down to 130s to 140s with EKG revealing AFib with RVR. ?new onset. TSH okay. Ordered IV Lopressor. Will transfer patient to telemetry. Consulted Cardiology and obtaining echocardiogram. Chads Vasc score 1. Initiating Eliquis. Time Spent With Patient Time: Total time managing care of this patient today ____ minutes.
[2024-07-07] MEDS: Apixaban 5 MG TABLET PO (20:26)
[2024-07-07] MEDS: Lactated Ringers 500 ML IV (20:26)
[2024-07-07] MEDS: guaiFENesin LA 600 MG TAB.ER.12H PO (20:28)
[2024-07-07 20:36] LABS: Troponin-I High Sensitivity 4.5 ng/L (<3.5-35.0)
[2024-07-07] MEDS: dilTIAZem HCL 50 MG/10 ML VIAL 20 MG IVPUSH (21:54)
[2024-07-08] VITALS (13 sets, daily range): BP systolic 92–128; BP diastolic 60–86; PULSE 53–148; RESP 16–18; TEMP 36.4–36.9; O2SAT 93–100; BMI 19.8
--- NOTE | 2024-07-08 | ECG_ITS ---
Test Reason : tachycardia Blood Pressure : */* mmHG Vent. Rate : 141 BPM Atrial Rate : 141 BPM P-R Int : 154 ms QRS Dur : 90 ms QT Int : 334 ms P-R-T Axes : * -66 110 degrees QTcB Int : 511 ms Atrial flutter Left axis deviation Marked ST abnormality, possible inferior subendocardial injury Abnormal ECG When compared with ECG of 07-Jul-2024 19:11, Criteria for Septal infarct are no longer Present T wave inversion less evident in Lateral leads Referred By: Belinda Wan Electronically Signed By: Scout Valdivia
[2024-07-08] MEDS: Azithromycin 500 MG in 0.9 % Sodium Chloride 250 ML 125 MG IV (00:16)
[2024-07-08] MEDS: dilTIAZem HCL 50 MG/10 ML VIAL 20 MG IVPUSH ×2 (00:36→09:16)
--- NOTE | 2024-07-08 07:00 | CA_ITS ---
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 There is normal left ventricular wall thickness. The left ventricular systolic function is hyperdynamic. The visually estimated ejection fraction is >70%. Diastolic function is normal for age. - Normal right ventricular cavity size and systolic function. - There is mild aortic valve stenosis. Findings Left Ventricle Normal left ventricular cavity size. There is normal left ventricular wall thickness. The left ventricular systolic function is hyperdynamic. The visually estimated ejection fraction is >70%. Diastolic function is normal for age. Right Ventricle Normal right ventricular cavity size and systolic function. Atria The left atrium is normal in size. The right atrium was not well visualized. Aortic Valve The aortic valve was not well visualized. There is mild aortic valve stenosis. There is no aortic valve regurgitation. Mitral Valve Normal mitral valve structure and function. There is no mitral valve regurgitation. There is no mitral valve stenosis. Pulmonic Valve The pulmonic valve was not well visualized. Tricuspid Valve Normal tricuspid valve structure. There is trace tricuspid valve regurgitation. Normal right atrial pressure. There is no evidence of pulmonary hypertension. Great Vessels All visible segments of the aorta are normal in size. Venous The inferior vena cava is normal in size and collapses greater than 50% with inspiration. Pericardium/Pleural There is no evidence of pericardial effusion. Prior Study Comparison No prior study available for comparison. Measurements 2D Linear Measurements IVSd: 0.98 0.6-0.9/0.6-1.0 cm LVIDd: 3.97 3.9-5.3/4.2-5.9 cm LVIDd Index: 1.99 2.4-3.2/2.2-3.1 cm/m2 LVIDs: 2.94 2.0-3.6 cm LVPWd: 0.87 0.7-1.1 cm Ao Root: 3.20 2.1-3.5 cm LA Diam: 3.30 2.7-3.8/3.0-4.0 cm LAIDs Index: 1.66 1.5-2.3 cm/m2 LV Mass: 140.05 67-162/88-224 g LV Mass Index: 70.38 43-95/49-115 g/m2 LVOT Diam: 1.90 3.0+(-)1.3 cm Mitral Valve MV Pk E: 0.78 MV Decel Time: 113.00 E'Lateral: 14.50 E'Medial: 20.00 E/E' Med: 3.90 E/E' Lat: 5.40 PHT: 33.00 MVA PHT: 6.67 Decel Berks: 6.90 Aortic Valve AoV Pk Yandel: 2.06 AoV Mn Yandel: 1.52 AoV VTI: 0.45 AoV Pk Grad: 17.00 Aov Mn Grad: 11.00 JHON Cont.VTI: 1.14 LVOT LVOT Pk Yandel: 1.06 LVOT Mn Yandel: 0.71 LVOT VTI: 0.18 LVOT Pk Grad: 4.00 LVOT Mn Grad: 2.00 LVOT Diam: 1.90 LVOT Area: 2.84 Diastolic Function MV Pk E: 0.78 E'Medial: 20.00 E/E' Med: 3.90 E' Laterial: 14.50 E/E' Lat: 5.40 Tricuspid Valve TR Pk Yandel: 2.41 TR Pk Grad: 23.00 RVSP: 27.00 Great Vessels Aorta Ao Root-2D: 3.20 2.0-3.7 cm Ao Asc: 2.50 2.1-3.4 cm Pulmonary Valve PV Pk Yandel: 1.17 Peak PV Grad: 5.00 Updated in Other Vendor System with Status of Final Scout Valdivia MD electronically signed on 07/08/2024 2:04:49 PM with status of Final
[2024-07-08] MEDS: Tamsulosin HCL 0.4 MG CAPSULE PO (07:51)
[2024-07-08] MEDS: Furosemide 20 MG TABLET PO (07:51)
[2024-07-08] MEDS: Nicotine 7 MG PATCH.TD24 TRANSDERMA (07:51)
[2024-07-08] MEDS: Apixaban 5 MG TABLET PO ×2 (07:51→20:52)
[2024-07-08] MEDS: predniSONE 20 MG TABLET 40 MG PO (07:52)
[2024-07-08] MEDS: Albuterol/Iprat 2.5/0.5MG 3 ML AMPUL.NEB INHALE ×4 (07:52→19:33)
[2024-07-08] MEDS: guaiFENesin LA 600 MG TAB.ER.12H PO ×2 (07:52→20:53)
[2024-07-08] MEDS: 0.9 % Sodium Chloride Flush 3 ML SYRINGE IVFLUSH ×3 (07:52→20:53)
--- NOTE | 2024-07-08 10:59 | P.PNIM_ITS ---
Subjective Subjective Date of Service: 07/08/24 Review of Systems Follow up COPD exacerbation Still with some wheezing with ambulation and sob now with aflutter Physical Exam 2 Vital Signs: Vital Signs: Last Vital Signs Temp 97.8 F 07/08/24 07:03 Pulse 148 H 07/08/24 09:16 Resp 18 07/08/24 07:53 BP 128/86 07/08/24 09:16 Pulse Ox 93 07/08/24 07:03 O2 Del Method Room Air 07/08/24 07:03 O2 Flow Rate 1 07/08/24 03:28 Oxygen Flow Rate 2 07/07/24 19:05 BMI result Body Mass Index 19.8 Appearing in no acute distress lung sounds are clear to auscultation heart regular rate rhythm, clear S1, S2 positive bowel sounds, abdomen is soft, nontender neuro patient is alert x3, no focal deficits Objective Data Active Medications Acetaminophen (Acetaminophen 325 Mg Tablet) 650 mg PO Q6H PRN PRN Reason: Pain, Mild 1-3,fever,headache Albuterol/Ipratropium (Albuterol/Iprat 2.5/0.5mg 3 Ml Ampul.Neb) 3 ml INHALE Q4H PRN PRN Reason: Shortness of Breath/Wheezing Albuterol/Ipratropium (Albuterol/Iprat 2.5/0.5mg 3 Ml Ampul.Neb) 3 ml INHALE RQ4H WHILE AWAKE [facility] Last Admin: 07/08/24 07:52 Dose: 3 ml Documented By: REENA Apixaban (Apixaban 5 Mg Tablet) 5 mg PO BID [facility] Last Admin: 07/08/24 07:51 Dose: 5 mg Documented By: MISSAEL Benzonatate (Benzonatate 100 Mg Capsule) 100 mg PO TID PRN PRN Reason: Cough Last Admin: 07/06/24 19:29 Dose: 100 mg Documented By: ODRISDonaldo Calcium Carbonate (Calcium Carbonate 750 Mg Tab.Chew) 750 mg PO Q4H PRN PRN Reason: Heartburn Furosemide (Furosemide 20 Mg Tablet) 20 mg PO DAILY [facility]; Protocol Last Admin: 07/08/24 07:51 Dose: 20 mg Documented By: MISSAEL Guaifenesin (Guaifenesin 200 Mg/10 Ml 10 Ml Liquid) 10 ml PO Q4H PRN PRN Reason: Cough Guaifenesin (Guaifenesin La 600 Mg Tab.Er.12h) 600 mg PO BID [facility] Last Admin: 07/08/24 07:52 Dose: 600 mg Documented By: MISSAEL Azithromycin 500 mg/ Sodium (Chloride) 250 mls @ 125 mls/hr IV Q24H [facility] Last Infusion: 07/08/24 03:34 Dose: Infused Documented By: DAILY Magnesium Hydroxide (Milk Of Magnesia 30 Ml Oral.Susp) 30 ml PO DAILY PRN PRN Reason: Constipation Melatonin (Melatonin 3 Mg Tablet) 6 mg PO BEDTIME PRN PRN Reason: Insomnia Nicotine (Nicotine 7 Mg Patch.Td24) 7 mg TRANSDERMA DAILY [facility] Last Admin: 07/08/24 07:51 Dose: 7 mg Documented By: MISSAEL Nicotine Polacrilex (Nicotine Polacrilex 2 Mg Gum) 2 mg BUCCAL Q2H PRN PRN Reason: Nicotine Cravings Ondansetron HCl (Ondansetron Hcl 4 Mg/2 Ml Vial) 4 mg IVPUSH Q8H PRN PRN Reason: Nausea and Vomiting Prednisone (Prednisone 20 Mg Tablet) 40 mg PO DAILY [facility] Last Admin: 07/08/24 07:52 Dose: 40 mg Documented By: MISSAEL Sodium Chloride (0.9 % Sodium Chloride Flush 3 Ml Syringe) 3 ml IVFLUSH QSHIFT [facility] Last Admin: 07/08/24 07:52 Dose: 3 ml Documented By: MISSAEL Tamsulosin HCl (Tamsulosin Hcl 0.4 Mg Capsule) 0.4 mg PO DAILY [facility] Last Admin: 07/08/24 07:51 Dose: 0.4 mg Documented By: MISSAEL Labs 07/07/24 05:36 07/07/24 05:36 Labs: Laboratory Results - last 24 hr 07/07/24 19:18 POC Glucose 223 H Microbiology Microbiology Results: Microbiology 07/06/24 01:25 Blood Culture - Preliminary Blood - Venous No growth after 48 hours. 07/06/24 01:25 Blood Culture - Preliminary Blood - Venous No growth after 48 hours. Assessment and Plan (1) SVT (supraventricular tachycardia): Status: Acute (2) COPD exacerbation: Status: Acute Plan 68-year-old male with pertinent history of COPD not on home oxygen, tobacco use disorder, left knee osteoarthritis who presents to the emergency department for evaluation of dyspnea. Aflutter initially thought to be SVT ? secondary to COPD episode on admission noted to be aflutter on tele up to 140's discussed with cardiology> start Metoprolol and Eliquis Acute hypoxemic respiratory failure due to acute exacerbation of COPD supplemental oxygen to keep o2 sat >90% Scheduled and p.r.n. DuoNebs. Initiating systemic steroids. Continue home inhaler. Initiating azithromycin for pleiotropic effect. mucinex for dry cough Leukocytosis likely from steroids no infectious source Tobacco use disorder NRT while in the hospital. Counseled regarding cessation Left knee osteoarthritis Has surgery scheduled on 09/08 BPH tamsulosin DVT prophylaxis: Lovenox Full code Quality Stroke Does the patient have a stroke diagnosis?: No VTE Prior VTE?: No VTE Risk Level:: Medical - moderate - high VTE Device Contraindication: Treatment Not Indicated VTE Drug Contraindication: N/A - Med Ordered
[2024-07-08] MEDS: Metoprolol Tartrate 12.5 MG HALFTAB PO (11:26)
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
[2024-07-08] MEDS: Metoprolol Tartrate 25 MG TABLET PO ×2 (12:13→20:52)
--- NOTE | 2024-07-08 12:38 | MHC.CM.PN ---
Per rounds, pt is not ready to DC, he requires cardiac follow up and monitoring. Anticipate DC tomorrow.
[2024-07-08] MEDS: Metoprolol Tartrate 5 MG/5 ML VIAL IVPUSH (20:52)
[2024-07-09] VITALS (9 sets, daily range): BP systolic 109–125; BP diastolic 55–88; PULSE 72–145; RESP 14–20; TEMP 36.2–37.1; O2SAT 89–94
[2024-07-09] MEDS: Azithromycin 500 MG in 0.9 % Sodium Chloride 250 ML 125 MG IV (01:26)
--- NOTE | 2024-07-09 02:05 | PC.NURSE ---
Around 1999 pt HR noted to be elevated up to 140s. Dr. Wan notified and EKG ordered. Once performed updated with result and IVP metoprolol ordered and given with good effect. Pt came down 90s-110s. Call bales within reach and plan of care continuing
[2024-07-09] MEDS: Albuterol/Iprat 2.5/0.5MG 3 ML AMPUL.NEB INHALE ×4 (08:01→19:02)
[2024-07-09] MEDS: predniSONE 20 MG TABLET 40 MG PO (08:18)
[2024-07-09] MEDS: Apixaban 5 MG TABLET PO ×2 (08:18→20:01)
[2024-07-09] MEDS: Metoprolol Tartrate 25 MG TABLET PO ×2 (08:18→20:01)
[2024-07-09] MEDS: guaiFENesin LA 600 MG TAB.ER.12H PO ×2 (08:18→20:01)
[2024-07-09] MEDS: 0.9 % Sodium Chloride Flush 3 ML SYRINGE IVFLUSH ×2 (08:18→17:45)
[2024-07-09] MEDS: Furosemide 20 MG TABLET PO (08:18)
[2024-07-09] MEDS: Tamsulosin HCL 0.4 MG CAPSULE PO (08:18)
[2024-07-09] MEDS: Nicotine 7 MG PATCH.TD24 TRANSDERMA (08:21)
--- NOTE | 2024-07-09 09:40 | PC.NURSE ---
Ambulated on the hallway , HR 130's 140's during ambulation , minimal SOB at the same time , denied palpitation. Back to his room HR 97 at rest
[2024-07-09] MEDS: dilTIAZem HCL CD 120 MG CAP.ER.DEG PO (12:56)
--- NOTE | 2024-07-09 14:00 | PM.PNCARD ---
Subjective Subjective Date of Service: 07/09/24 Interval history: Seen examined at bedside. He has atrial flutter with rapid ventricular response. Physical Exam Vital Signs: Last Vital Signs Temp 98.7 F 07/09/24 07:43 Pulse 108 H 07/09/24 11:39 Resp 16 07/09/24 11:39 BP 117/88 07/09/24 07:43 Pulse Ox 94 07/09/24 07:43 O2 Del Method Room Air 07/09/24 07:43 O2 Flow Rate 1 07/08/24 03:28 Oxygen Flow Rate 2 07/07/24 19:05 BMI result Body Mass Index 19.8 GENERAL APPEARANCE: in no acute distress, pleasant. NECK: no carotid bruit, no jugular venous distention. SKIN: no suspicious lesions, warm and dry. HEART: no murmurs, regular rate and rhythm. Tachycardic. LUNGS: Bilateral expiratory wheezes. ABDOMEN: soft, nontender. EXTREMITIES: no edema. PERIPHERAL PULSES: equal. NEUROLOGIC: No gross deficits, AAO X 3 Objective Labs and Meds 07/07/24 05:36 07/07/24 05:36 Progress Note: A&P Assessment and plan (1) Atrial flutter: Status: Acute (2) COPD exacerbation: Status: Acute Plan Pleasant 68 year gentleman with background tobacco abuse presenting with COPD exacerbation and atrial flutter. Flutter is difficult to control which is not unusual. He has normal LV function by echocardiography. Adding Cardizem 120 mg daily. Continue metoprolol 25 mg twice a day. We will monitor heart rate closely till tomorrow. If he continues to have tachycardia by tomorrow then our plan will be to do a SHARI cardioversion. He will be NPO after midnight. Continue Eliquis 5 mg b.i.d. as before. Thank you for allowing me to participate in the care of your patient. Please feel free to contact me if you have any questions. Time Spent With Patient Time: Total time managing care of this patient today ____ minutes. Progress Note: Quality Stroke Does the patient have a stroke diagnosis?: No Procedures Date of Service Date of Service: 07/09/24
--- NOTE | 2024-07-09 15:17 | HO.PM.IMPN ---
Subjective Subjective Date of Service: 07/09/24 Interval History: seen and examined this morning follow up for copd exacerbation, afib rvr HR increased with ambulation. no palpitations or chest pain Review of Systems Review of Systems: Yes all other systems are reviewed and are negative Constitutional Constitutional: Denies chills and Denies fever(s) Cardiovascular Cardiovascular: Denies chest pain and Denies palpitations Endocrine Endocrine: Denies palpitations Physical Exam Vital Signs: Vital Signs: Last Vital Signs Temp 98.7 F 07/09/24 07:43 Pulse 108 H 07/09/24 11:39 Resp 16 07/09/24 11:39 BP 117/88 07/09/24 07:43 Pulse Ox 94 07/09/24 07:43 O2 Del Method Room Air 07/09/24 07:43 O2 Flow Rate 1 07/08/24 03:28 Oxygen Flow Rate 2 07/07/24 19:05 BMI result Body Mass Index 19.8 Const: General: cooperative, comfortable, no acute distress, alert and awake Nutritional Appearance: average body habitus Orientation/consciousness: patient oriented x3 Resp: Effort & Inspection: normal respiratory effort, no respiratory distress and no use of accessory muscles Cardio: Rate: tachycardic GI: Inspection: No distended Palpation (GI): Soft to palpation Neuro: General: patient oriented x3, moves all extremities and CN's II-XI intact bilaterally Extrem: General: Yes no pedal edema Objective Data Active Medications Acetaminophen (Acetaminophen 325 Mg Tablet) 650 mg PO Q6H PRN PRN Reason: Pain, Mild 1-3,fever,headache Albuterol/Ipratropium (Albuterol/Iprat 2.5/0.5mg 3 Ml Ampul.Neb) 3 ml INHALE Q4H PRN PRN Reason: Shortness of Breath/Wheezing Albuterol/Ipratropium (Albuterol/Iprat 2.5/0.5mg 3 Ml Ampul.Neb) 3 ml INHALE RQ4H WHILE AWAKE [facility] Last Admin: 07/09/24 11:36 Dose: 3 ml Documented By: REENA Apixaban (Apixaban 5 Mg Tablet) 5 mg PO BID [facility] Last Admin: 07/09/24 08:18 Dose: 5 mg Documented By: ESPERANZA Benzonatate (Benzonatate 100 Mg Capsule) 100 mg PO TID PRN PRN Reason: Cough Last Admin: 07/06/24 19:29 Dose: 100 mg Documented By: ODRISDonaldo Calcium Carbonate (Calcium Carbonate 750 Mg Tab.Chew) 750 mg PO Q4H PRN PRN Reason: Heartburn Diltiazem HCl (Diltiazem Hcl Cd 120 Mg Cap.Er.Deg) 120 mg PO DAILY [facility]; Protocol Last Admin: 07/09/24 12:56 Dose: 120 mg Documented By: AG Furosemide (Furosemide 20 Mg Tablet) 20 mg PO DAILY [facility]; Protocol Last Admin: 07/09/24 08:18 Dose: 20 mg Documented By: ESPERANZA Guaifenesin (Guaifenesin 200 Mg/10 Ml 10 Ml Liquid) 10 ml PO Q4H PRN PRN Reason: Cough Guaifenesin (Guaifenesin La 600 Mg Tab.Er.12h) 600 mg PO BID [facility] Last Admin: 07/09/24 08:18 Dose: 600 mg Documented By: ESPERANZA Azithromycin 500 mg/ Sodium (Chloride) 250 mls @ 125 mls/hr IV Q24H [facility] Last Infusion: 07/09/24 03:41 Dose: Infused Documented By: AG Magnesium Hydroxide (Milk Of Magnesia 30 Ml Oral.Susp) 30 ml PO DAILY PRN PRN Reason: Constipation Melatonin (Melatonin 3 Mg Tablet) 6 mg PO BEDTIME PRN PRN Reason: Insomnia Metoprolol Tartrate (Metoprolol Tartrate 25 Mg Tablet) 25 mg PO BID [facility]; Protocol Last Admin: 07/09/24 08:18 Dose: 25 mg Documented By: ESPERANZA Nicotine (Nicotine 7 Mg Patch.Td24) 7 mg TRANSDERMA DAILY [facility] Last Admin: 07/09/24 08:21 Dose: 7 mg Documented By: ESPERANZA Nicotine Polacrilex (Nicotine Polacrilex 2 Mg Gum) 2 mg BUCCAL Q2H PRN PRN Reason: Nicotine Cravings Ondansetron HCl (Ondansetron Hcl 4 Mg/2 Ml Vial) 4 mg IVPUSH Q8H PRN PRN Reason: Nausea and Vomiting Prednisone (Prednisone 20 Mg Tablet) 40 mg PO DAILY [facility] Last Admin: 07/09/24 08:18 Dose: 40 mg Documented By: ESPERANZA Sodium Chloride (0.9 % Sodium Chloride Flush 3 Ml Syringe) 3 ml IVFLUSH QSHIFT [facility] Last Admin: 07/09/24 08:18 Dose: 3 ml Documented By: ESPERANZA Tamsulosin HCl (Tamsulosin Hcl 0.4 Mg Capsule) 0.4 mg PO DAILY [facility] Last Admin: 07/09/24 08:18 Dose: 0.4 mg Documented By: ESPERANZA Labs 07/07/24 05:36 07/07/24 05:36 Assessment and Plan (1) Atrial flutter: Status: Acute (2) COPD exacerbation: Status: Acute Plan 68-year-old male with pertinent history of COPD not on home oxygen, tobacco use disorder, left knee osteoarthritis who presents to the emergency department for evaluation of dyspnea. Aflutter initially thought to be SVT HR still elevated especially with ambulation started on Metoprolol and Eliquis adding cardizem 120 daily cardiology following NPO at midnight, if no improvement possible cardioversion tomorrow Acute hypoxemic respiratory failure due to acute exacerbation of COPD Scheduled and p.rmarychuy Rojas. Continue oral prednisone, azithromycin blood cultures negative Leukocytosis likely from steroids no infectious source Tobacco use disorder NRT Counseled regarding cessation BPH tamsulosin DVT prophylaxis: Eliquis Full code Patient requires ongoing inpatient stay for manage atrial flutter with rapid ventricular response, COPD exacerbation Quality Stroke Does the patient have a stroke diagnosis?: No VTE Prior VTE?: No VTE Risk Level:: Medical - moderate - high VTE Device Contraindication: Treatment Not Indicated VTE Drug Contraindication: N/A - Med Ordered
[2024-07-10] MEDS: 0.9 % Sodium Chloride Flush 3 ML SYRINGE IVFLUSH ×2 (01:31→08:25)
[2024-07-10] MEDS: Azithromycin 500 MG in 0.9 % Sodium Chloride 250 ML 125 MG IV (01:32)
[2024-07-10 03:43] VITALS: BP 137/85; PULSE 98; RESP 16; TEMP 36.1; O2SAT 94
[2024-07-10 07:30] VITALS: BP 114/77; PULSE 97; RESP 18; TEMP 36.8; O2SAT 92
[2024-07-10 07:41] VITALS: PULSE 66; RESP 18; O2SAT 93
[2024-07-10] MEDS: Albuterol/Iprat 2.5/0.5MG 3 ML AMPUL.NEB INHALE (07:41)
[2024-07-10] MEDS: predniSONE 20 MG TABLET 40 MG PO (08:23)
[2024-07-10] MEDS: dilTIAZem HCL CD 120 MG CAP.ER.DEG PO (08:23)
[2024-07-10] MEDS: guaiFENesin LA 600 MG TAB.ER.12H PO (08:23)
[2024-07-10] MEDS: Metoprolol Tartrate 25 MG TABLET PO (08:24)
[2024-07-10] MEDS: Apixaban 5 MG TABLET PO (08:24)
[2024-07-10] MEDS: Furosemide 20 MG TABLET PO (08:24)
[2024-07-10] MEDS: Tamsulosin HCL 0.4 MG CAPSULE PO (08:28)
[2024-07-10 09:14] LABS: Hematocrit 42.5 % (42.0-52.0); Mean Corpuscular HGB Conc 32.9 g/dl (31.0-36.0); Mean Corpuscular Hemoglobin 29.9 pg (27.0-33.0); Mean Corpuscular Volume 90.8 fL (80.0-98.0); Mean Platelet Volume 9.2 fL (9.4-12.4); Platelet Count 284 X10*3/uL (160-400); Red Blood Count 4.68 X10*6/uL (4.60-5.80); Red Cell Distribution Width 15.2 % (11.0-16.0); White Blood Count 14.9 X10*3/uL (4.8-10.8)
[2024-07-10 09:29] LABS: Anion Gap 11 (12-20); Blood Urea Nitrogen 33 mg/dL (9-16); Calcium 8.8 mg/dL (8.4-10.2); Carbon Dioxide 32 mmol/L (22-29); Chloride 105 mmol/L (96-108); Creatinine Clr Calc Pharmacy 53.6; Estimated Glomerular Filt Rate 53; Glucose Random 98 mg/dL (60-115); Sodium 144 mmol/L (135-145)
--- NOTE | 2024-07-10 10:40 | P.DS_ITS ---
DS: Providers Provider Date of Service: 07/10/24 Date of admission: 07/06/24 05:08 Date of discharge: 07/10/24 Primary care physician: Flor Chandra MD Consults: 07/07/24 19:42 Consult to Cardiology Routine Consulting Provider: [facility] [place] [facility] Reason for consultation: afib with rvr Has provider been notified: Yes Attending physician on discharge: Franco Ruiz Discharging clinician: Nayely Hess DS: Diagnosis Discharge Diagnosis (1) Atrial flutter: Status: Acute (2) COPD exacerbation: Status: Acute DS: Summary Hospital Course Hospital Course: From H&P on the day of admission This is a 68-year-old male with pertinent history of COPD not on home oxygen, tobacco use disorder, left knee osteoarthritis who presents to the emergency department for evaluation of dyspnea. Patient states his symptoms started 1 day prior to presentation. He has been having dyspnea which is worse with exertion. No orthopnea or PND. Also has been having productive cough. Has associated wheezing which is not relieved. He continues to smoke cigarettes. Patient denies fever, chills, chest pain, palpitations, abdominal pain, changes in urinary or bowel habits. In the emergency department, patient was found to be satting 87% on room air and placed on supplemental oxygen. Patient was found to be satting 80% upon ambulation. He was given IV steroids and breathing treatments in the ER. Patient was admitted to the hospital initially for management of acute COPD exacerbation, patient then went into atrial flutter with rapid ventricular response. Was started on Toprol-XL but continued to have uncontrolled heart rate, but seen by Cardiology and started on Cardizem 120 CD daily with improvement in his heart rate. He was also started on anticoagulation with oral Eliquis. Acute hypoxemic respiratory failure due to acute exacerbation of COPD He was treated with systemic steroids, empiric azithromycin and breathing treatments. White blood cell count trending down, patient has remained afebrile. Chest x-ray negative. Patient is on room air and respiratory symptoms have improved substantially. Patient has completed course of antibiotics during hospital stay, will complete two more day of steroids Tobacco dependence. Smoking cessation advised Time Attestation Discharge Coordination Time (in mins): 36 Quality: Safe Use of Opioids Does Pt have an Active Cancer Diagnosis on the Problem List?: No Quality: Stroke Does the patient have a stroke diagnosis?: No Physical Exam Vital Signs: Vital Signs: Last Vital Signs Temp 98.2 F 07/10/24 07:30 Pulse 66 07/10/24 07:41 Resp 18 07/10/24 07:41 BP 114/77 07/10/24 07:30 Pulse Ox 92 07/10/24 07:30 O2 Del Method Room Air 07/10/24 07:30 O2 Flow Rate 1 07/08/24 03:28 Oxygen Flow Rate 2 07/07/24 19:05 BMI result Body Mass Index 19.8 Const: General: cooperative, comfortable, no acute distress, alert and awake Nutritional Appearance: average body habitus Orientation/consciousness: patient oriented x3 Resp: Other: mild end expiratory wheeze Effort & Inspection: normal respiratory effort, able to speak in complete sentences, no respiratory distress and no use of accessory muscles Cardio: Rate: regular rate GI: Inspection: No distended Palpation (GI): Soft to palpation Neuro: General: patient oriented x3 and CN's II-XI intact bilaterally DS: Data Data Completed and Pending Labs on day of discharge: Laboratory Results - last 24 hr 07/10/24 08:45 WBC 14.9 H RBC 4.68 Hgb 14.0 Hct 42.5 MCV 90.8 MCH 29.9 MCHC 32.9 RDW 15.2 Plt Count 284 MPV 9.2 L Absolute Nucleated RBC 0.000 Nucleated RBC % (auto) 0.0 Sodium 144 Potassium 4.0 Chloride 105 Carbon Dioxide 32 H Anion Gap 11 L BUN 33 H Creatinine 1.34 Estim Creat Clear Calc 53.6 Estimated GFR 53 Random Glucose 98 Calcium 8.8 Preliminary micro results at discharge 07/06/24 01:25 Blood Culture - Preliminary Blood - Venous No growth after 48 hours. 07/06/24 01:25 Blood Culture - Preliminary Blood - Venous No growth after 48 hours. Discharge Plan Discharge Anticipated Discharge Date/Time: 07/10/24 10:54 Patient Disposition: Home, Self-Care Discharge Diagnosis: atrial flutter with rapid ventricular response copd exacerbation Referrals: Flor Chandra MD [Primary Care Provider] - 1 Week Scout Valdivia MD [Physician] - 1 Week Discharge Medications: New nicotine 7 mg/24 hr Patch 24 Hour 7 mg transdermal DAILY Qty: 14 2RF Eliquis 5 mg Tablet 5 mg PO BID 90 Days Qty: 180 0RF diltiazem HCl [Cardizem CD] 120 mg Capsule,Extended Release 24hr 120 mg PO DAILY Qty: 90 0RF Protocol: Hold for SBP/HR < HOLD for SBP < : 90 HOLD for HR < : 60 metoprolol succinate [Toprol XL] 50 mg tablet extended release 24 hr 50 mg PO DAILY Qty: 90 0RF prednisone 20 mg tablet 40 mg PO DAILY Qty: 4 0RF Continued (DME) cane Device See Rx Instructions .MEDSUPPLY Qty: 1 0RF Rx Instructions: As directed (DME) walker Misc See Rx Instructions .MEDSUPPLY Qty: 1 0RF Rx Instructions: Folding Front wheeled walker duration 99 days (DME) walker Misc See Rx Instructions .MEDSUPPLY Qty: 1 0RF Rx Instructions: Folding Front wheeled walker duration 99 days tamsulosin 0.4 mg capsule 0.4 mg PO DAILY furosemide 20 mg tablet 20 mg PO DAILY Trelegy Ellipta 200-62.5-25 mcg Blister With Device 1 inh INHALATION DAILY Discontinued naproxen 500 mg tablet 500 mg PO BID Discharge Orders: Discharge Order (Routine); Ordered 07/10/24 Ordered By: Nayely Hess Activity on Discharge: As tolerated Stand Alone Forms: Patient Portal Discharge page Print Language: Greek Care Plan Goals: see below Health Concerns: atrial flutter COPD exacerbation Plan of Treatment: For atrial flutter you has been started on metoprolol, Cardizem for rate control and Eliquis for anticoagulation to reduce the risk of stroke Do not take NSAIDs (motrin, naprosyn, etc) while taking blood thinners outpatient follow up with Cardiology Call to schedule follow-up appointment with PCP 2 more days of oral prednisone for COPD smoking cessation advised Assessment: see discharge summary Patient Instructions: Metoprolol (By mouth), Diltiazem (By mouth), Apixaban (By mouth) (Eliquis), Atrial Flutter (ED), Cardioversion (GEN)
--- NOTE | 2024-07-10 10:42 | PM.PNCARD ---
Subjective Subjective Date of Service: 07/10/24 Interval history: Seen examined at bedside. Feeling good. He has ambulated and telemetry did show some tachycardia but he improved very quickly. Physical Exam Vital Signs: Last Vital Signs Temp 98.2 F 07/10/24 07:30 Pulse 66 07/10/24 07:41 Resp 18 07/10/24 07:41 BP 114/77 07/10/24 07:30 Pulse Ox 92 07/10/24 07:30 O2 Del Method Room Air 07/10/24 07:30 O2 Flow Rate 1 07/08/24 03:28 Oxygen Flow Rate 2 07/07/24 19:05 BMI result Body Mass Index 19.8 GENERAL APPEARANCE: in no acute distress, pleasant. NECK: no carotid bruit, no jugular venous distention. SKIN: no suspicious lesions, warm and dry. HEART: no murmurs, regular rate and rhythm. LUNGS: Bilateral expiratory wheezes. ABDOMEN: soft, nontender. EXTREMITIES: no edema. PERIPHERAL PULSES: equal. NEUROLOGIC: No gross deficits, AAO X 3 Objective Labs and Meds 07/10/24 08:45 07/10/24 08:45 Lab results: Laboratory Results - last 24 hr 07/10/24 08:45 WBC 14.9 H RBC 4.68 Hgb 14.0 Hct 42.5 MCV 90.8 MCH 29.9 MCHC 32.9 RDW 15.2 Plt Count 284 MPV 9.2 L Absolute Nucleated RBC 0.000 Nucleated RBC % (auto) 0.0 Sodium 144 Potassium 4.0 Chloride 105 Carbon Dioxide 32 H Anion Gap 11 L BUN 33 H Creatinine 1.34 Estim Creat Clear Calc 53.6 Estimated GFR 53 Random Glucose 98 Calcium 8.8 Progress Note: A&P Assessment and plan (1) Atrial flutter: Status: Acute (2) COPD exacerbation: Status: Acute Plan Pleasant 68 year gentleman with COPD exacerbation in atrial flutter. He continues to have mild wheezing but overall is improving clinically. He had significant tachycardia with ambulation and Cardizem 120 mg was added. Today his heart rates are much better with Cardizem CD 120 mg and metoprolol. We had a long discussion about potential SHARI cardioversion today versus cardioversion only in 3-4 weeks. He has done well with rate control strategy and I think he can return home with Cardizem and Toprol-XL 50 mg. We will see him in the office soon and plan cardioversion. He plans to go for left knee replacement on September 12 and we have to cardiovert him in next 3-4 weeks. Can discharged back home. We will arrange follow up in the office in couple of weeks. Thank you for allowing me to participate in the care of your patient. Please feel free to contact me if you have any questions. Time Spent With Patient Time: Total time managing care of this patient today ____ minutes. Progress Note: Quality Stroke Does the patient have a stroke diagnosis?: No Procedures Date of Service Date of Service: 07/10/24
--- NOTE | 2024-07-10 11:33 | MHC.CM.PN ---
Second IMM, pt. has been medically cleared for DC, He will go home via his , plan is home, self care. Coupons for Luis given to pt.
== END 2024-07-10 13:59 | disposition home or self-care (01) | DRG 190 ==
LOC: HO.ED 07-06 05:09 → HO.EDOVER 07-06 05:14 → HO.S3 07-06 14:15 → HO.IMC 07-07 22:00
PROVIDERS: Internal Medicine; Nurse Practitioner Acute Care; Admitting Provider Student in an Organized Health Care Education/Training Program; Emergency Provider Emergency Medicine; PCP Internal Medicine; Visit Provider Physician Assistant Medical
DX: J44.1 Chronic obstructive pulmonary disease with (acute) exacerbation (principal); J96.01 Acute respiratory failure with hypoxia; I47.10 Supraventricular tachycardia, unspecified; I48.92 Unspecified atrial flutter; N40.0 Benign prostatic hyperplasia without lower urinary tract symptoms; M17.12 Unilateral primary osteoarthritis, left knee; F17.210 Nicotine dependence, cigarettes, uncomplicated; Z71.6 Tobacco abuse counseling; Z20.822 Contact with and (suspected) exposure to COVID-19; Z79.899 Other long term (current) drug therapy
CPT/HCPCS: 0241U; 36415; 71045; 80048; 80053; 82947; 83605; 83735; 83880; 84443; 84484; 85025; 85027; 87040; 93005; 93306; 94640; 99285; J0456; J0696; J1650; J2919; J3475; J7120; Q9957

== ENCOUNTER → 2024-07-05 22:11 | Outpatient (BNV) | payer MEDICARE, SELFPAY | PROVIDERS: Admitting Provider Student in an Organized Health Care Education/Training Program; Emergency Provider Emergency Medicine; PCP Internal Medicine; Visit Provider Internal Medicine Cardiovascular Disease | DX: R94.31 Abnormal electrocardiogram [ECG] [EKG] (principal); R06.02 Shortness of breath | CPT/HCPCS: 93010 ==

== ENCOUNTER → 2024-07-05 22:22 | Outpatient (BNV) | payer MEDICARE, SELFPAY | PROVIDERS: PCP Internal Medicine; Visit Provider General Practice | DX: R06.02 Shortness of breath (principal) | CPT/HCPCS: 71045 ==

== ENCOUNTER → 2024-07-06 00:46 | Outpatient (BNV) | payer MEDICARE, SELFPAY | PROVIDERS: Admitting Provider Student in an Organized Health Care Education/Training Program; Emergency Provider Emergency Medicine; PCP Internal Medicine; Visit Provider Internal Medicine Cardiovascular Disease | DX: I44.4 Left anterior fascicular block (principal); I25.2 Old myocardial infarction | CPT/HCPCS: 93010 ==

== ENCOUNTER 2024-07-06 05:08 | Outpatient (BNV) | payer MEDICARE, SELFPAY | END 2024-07-08 07:00 | PROVIDERS: Admitting Provider Student in an Organized Health Care Education/Training Program; Emergency Provider Emergency Medicine; PCP Internal Medicine; Visit Provider Internal Medicine Cardiovascular Disease | DX: I35.0 Nonrheumatic aortic (valve) stenosis (principal) | CPT/HCPCS: 93306 ==

== ENCOUNTER 2024-07-06 05:08 | Outpatient (BNV) | payer MEDICARE, SELFPAY | END 2024-07-07 19:19 | PROVIDERS: Admitting Provider Student in an Organized Health Care Education/Training Program; Emergency Provider Emergency Medicine; PCP Internal Medicine; Visit Provider Internal Medicine Cardiovascular Disease | DX: I48.91 Unspecified atrial fibrillation (principal); I25.2 Old myocardial infarction | CPT/HCPCS: 93010 ==

== ENCOUNTER → 2024-07-06 05:08 | Outpatient (BNV) | payer MEDICARE, SELFPAY | PROVIDERS: Admitting Provider Student in an Organized Health Care Education/Training Program; Emergency Provider Emergency Medicine; PCP Internal Medicine; Visit Provider Student in an Organized Health Care Education/Training Program | DX: I48.92 Unspecified atrial flutter (principal); J44.1 Chronic obstructive pulmonary disease with (acute) exacerbation | CPT/HCPCS: 99222; 99232; 99239; 99499 ==

== ENCOUNTER → 2024-07-06 05:08 | Outpatient (BNV) | payer MEDICARE, SELFPAY | PROVIDERS: Admitting Provider Student in an Organized Health Care Education/Training Program; Emergency Provider Emergency Medicine; PCP Internal Medicine; Visit Provider Internal Medicine Cardiovascular Disease | DX: I48.92 Unspecified atrial flutter (principal); J44.1 Chronic obstructive pulmonary disease with (acute) exacerbation | CPT/HCPCS: 99223; 99232; 99233 ==

== ENCOUNTER → 2024-07-16 07:44 | Outpatient (BNV) | payer MEDICARE, SELFPAY | PROVIDERS: PCP Internal Medicine; Visit Provider Radiology Diagnostic Radiology | DX: M75.122 Complete rotator cuff tear or rupture of left shoulder, not specified as traumatic (principal) | CPT/HCPCS: 73221 ==

== ENCOUNTER 2024-07-16 07:47 | Outpatient (REF) | payer MEDICARE, SELFPAY ==
--- NOTE | ~2024-07-16 | MR_ITS ---
CLINICAL HISTORY: S46.009A - Unspecified injury of muscle(s) and tendon(s) of the rotator ... MR left shoulder without gadolinium Comparison: None Findings: Examination is degraded by motion artifact. No acute fracture. Prominent subcortical cystic change within the greater tuberosity. Moderate acromioclavicular and mild glenohumeral osteoarthritis. Superior subluxation of the humerus. Limited evaluation of the glenoid labrum due to significant motion on the axial sequences. No discrete tear is identified. Small glenohumeral joint effusion which communicates with the subacromial subdeltoid bursa through the rotator cuff tear. Complete tear of the supraspinatus tendon insertion which is retracted to the glenohumeral joint. The tear propagates posteriorly as a full-thickness partial width infraspinatus tear. Limited evaluation of the subscapularis tendon due to significant motion on the axial sequences. Likely high-grade partial tearing of the distal subscapularis tendon. The teres minor tendon is intact. Moderate to severe atrophy and fatty replacement of the supraspinatus, infraspinatus, and subscapularis muscles. Limited evaluation of the long head of the biceps tendon due to significant motion on the axial sequences. IMPRESSION: 1. Limited exam due to patient motion and associated artifact. 2. Complete supraspinatus tendon insertion tear retracted to the glenohumeral joint. The tear propagates posteriorly as a full-thickness partial width infraspinatus tendon tear. Ill-defined high-grade partial tearing of the distal subscapularis tendon. Moderate to severe supraspinatus, infraspinatus, and subscapularis atrophy and fatty replacement. 3. Moderate acromioclavicular and mild glenohumeral osteoarthritis with superior subluxation of the humerus. 4. The long head of the biceps tendon is not well visualized which may be related to motion artifact and/or tear. Correlate for functional deficit. 5. Small glenohumeral joint effusion which communicates with the subacromial subdeltoid bursa through the rotator cuff tear. This document has been electronically signed by: Martín Vargas DO on 07/17/2024 09:55:54
--- OUTSIDE RECORDS SUMMARY | 2024-07-16 07:50 | XMS_ITS | Clinical Summary ---
Author Organization [facility] Address [address] [place] [address] Phone Care Team Providers Care Ginseng Farmer Name Role Phone Flor Chandra MD Primary [...] this topic Insurance [employer] Care Teams Ginseng Farmer Relationship Specialty Start Date End Date Flor Chandra MD [address] [place] [address] PCP - General 02/29/20
== END 2024-07-16 07:48 | disposition home or self-care (01) ==
LOC: HO.MRI 07:47
PROVIDERS: PCP Internal Medicine; Visit Provider Physician Assistant
DX: S45.002A Unspecified injury of axillary artery, left side, initial encounter (principal)
CPT/HCPCS: 36415; 73221; 80053; 85025

== ENCOUNTER 2024-07-16 12:33 | Outpatient (REF) | payer MEDICARE, SELFPAY ==
[2024-07-16 13:13] LABS: MANUAL DIFF FLAG NO
[2024-07-16 13:28] LABS: Basophils Absolute Auto 0.1 X10*3/uL (0.0-0.2); Basophils Percent Auto 0.6 % (0-2); Eosinophils Absolute Auto 0.6 X10*3/uL (0.0-0.4); Eosinophils Percent Auto 4.8 % (0-4); Hematocrit 37.9 % (42.0-52.0); Hemoglobin 12.2 g/dl (14.0-18.0); Imm Gran Abs Auto 0.19 X10*3/uL (0.00-0.03); Imm Gran Pct Auto 1.5 % (0.0-0.4); Lymphocytes Absolute Auto 3.8 X10*3/uL (1.2-4.9); Lymphocytes Percent Auto 30.8 % (20-40); Mean Corpuscular HGB Conc 32.2 g/dl (31.0-36.0); Mean Corpuscular Hemoglobin 29.8 pg (27.0-33.0); Mean Corpuscular Volume 92.7 fL (80.0-98.0); Mean Platelet Volume 9.1 fL (9.4-12.4); Monocytes Absolute Auto 1.4 X10*3/uL (0.1-1.2); Monocytes Percent Auto 11.5 % (2-11); Neutrophils Absolute Auto 6.3 x10*3/uL (2.0-8.3); Neutrophils Percent Auto 50.8 % (45-73); Platelet Count 264 X10*3/uL (160-400); Red Blood Count 4.09 X10*6/uL (4.60-5.80); White Blood Count 12.5 X10*3/uL (4.8-10.8)
[2024-07-16 14:13] LABS: Alanine Aminotransferase 105 U/L (0-40); Albumin Level 3.9 g/dL (3.5-5.0); Alkaline Phosphatase 111 U/L (39-117); Anion Gap 11 (12-20); Aspartate Amino Transferase 49 U/L (5-37); Bilirubin Total 0.6 mg/dL (0.0-1.0); Blood Urea Nitrogen 25 mg/dL (9-16); Calcium 8.7 mg/dL (8.4-10.2); Carbon Dioxide 30 mmol/L (22-29); Chloride 109 mmol/L (96-108); Estimated Glomerular Filt Rate 55; Glucose Random 78 mg/dL (60-115); Potassium 4.7 mmol/L (3.3-5.1); Sodium 145 mmol/L (135-145); Total Protein 6.5 g/dL (6.5-8.0)
== END 2024-07-16 12:34 | disposition home or self-care (01) ==
LOC: HO.10HDL 12:33
PROVIDERS: Visit Provider Internal Medicine
DX: Z13.89 Encounter for screening for other disorder (principal)
CPT/HCPCS: 36415; 80053; 85025

== ENCOUNTER 2024-07-20 09:07 | Outpatient (AMB) | payer MEDICARE, SELFPAY ==
--- NOTE | 2024-07-20 09:22 | A.OFFVIS_ITS ---
Intake Visit Reasons: OV- Discuss L TKA Intake Note: Linus is a 68 year old male who presents today to discuss upcoming surgery; Left Total Knee Replacement 09/08/24. Patient has no concerns for upcoming surgery, but does mention that he was [place] [facility] [place] Atrial Flutter. He was admitted and seen by Follow Up Rep in hospital where he was placed on Eliquis, Diltiazem, Prednisone (2 day supply), Metoprolol. He states that the green end department supervisor says this will not impact his surgery. Follow up 07/24/24 with cardiology Allergies Penicillins [PENICILLINS] Allergy (Unknown, Verified 07/20/24 09:27) UNKNOWN SHELLFISH Allergy (Severe, Uncoded 07/20/24 09:27) SWELLING HPI HPI OV- Discuss L TKA: Details: Linus is a 68 year old male who presents today to discuss upcoming surgery; Left Total Knee Replacement 09/08/24. Patient has no concerns for upcoming surgery, but does mention that he was at [facility] [place] for Atrial Flutter. He was admitted and seen by Follow Up Rep in hospital where he was placed on Eliquis, Diltiazem, Prednisone (2 day supply), Metoprolol. He states that the green end department supervisor says this will not impact his surgery. Follow up 07/24/24 with cardiology [facility] Medical History HCV (hepatitis C virus) Nicotine dependence, cigarettes, uncomplicated MRSA (methicillin resistant Staphylococcus aureus) TMJ (dislocation of temporomandibular joint) Tubular adenoma of colon Surgical History History of liver biopsy History of colonoscopy History of bronchoscopy History of right knee surgery Social History Household Members: Significant Other and Family Housing: House Are you a primary eye care professional to a significant other at home: Yes (takes care of mother) Do you presently have visiting nurse or other home services: No Patient Tobacco Use Status: Current everyday Tobacco user Tobacco use type: Cigarette Cigarette Packs Per Day: 0.5 Cigarettes Per Day: 2 Second Hand Smoke Exposure: No Substance Use Type: Crack/Cocaine service: No Assessment & Plan Assessment & Plan (1) Atrial flutter: Code(s): I48.92 - Unspecified atrial flutter Category: Medical Plan: Atrial flutter. He has not seen his green end department supervisor yet. No intervention warranted. It remains to be seen if he will be cleared for surgery. He will let us know. Coding Level of Care Code Est Pt Level 2 (72805) Diagnoses Atrial flutter I48.92
--- OUTSIDE RECORDS SUMMARY | 2024-07-20 09:39 | XMS_ITS | Clinical Summary ---
Author Organization [facility] Address [address] [place] [address] Phone Care Team Providers Care Child Watch Attendant Name Role Phone Flor Chandra MD Primary [...] this topic Insurance [employer] Care Teams Child Watch Attendant Relationship Specialty Start Date End Date Flor Chandra MD [address] [place] [address] PCP - General 02/29/20
== END 2024-07-20 10:43 | disposition home or self-care (01) ==
LOC: HO.HOS 09:08
PROVIDERS: PCP Internal Medicine; Visit Provider Orthopaedic Surgery
DX: I48.92 Unspecified atrial flutter (principal)
CPT/HCPCS: 99212

== ENCOUNTER → 2024-07-20 09:07 | Outpatient (BNVA) | payer MEDICARE, SELFPAY | PROVIDERS: PCP Internal Medicine; Visit Provider Orthopaedic Surgery | DX: I48.92 Unspecified atrial flutter (principal) | CPT/HCPCS: 99212 ==

== ENCOUNTER 2024-07-24 09:06 | Outpatient (AMB) | payer MEDICARE, SELFPAY ==
--- NOTE | 2024-07-24 09:19 | A.OFFVIS_ITS ---
Vital Signs 07/24/24 09:20 Height 6 ft 3 in BMI Reason not done Patient refused/unable BP 108/60 Blood Pressure Location Lt brachial Position Sitting Pulse 74 Pulse Source Monitor Intake Visit Reasons: [facility]-2wks f/up-atrial flutter Allergies Penicillins [PENICILLINS] Allergy (Unknown, Verified 07/20/24 09:27) UNKNOWN SHELLFISH Allergy (Severe, Uncoded 07/20/24 09:27) SWELLING Medication List - Last Reconciled 07/24/24 by Rachana Wang, ALARM INSTALLATION TECHNICIAN-C apixaban (Eliquis) 5 mg PO BID 90 days cane As directed diltiazem HCl CD (Cardizem CD) 120 mg See Protocol PO DAILY [id number]-tquijbymu-hlkyhysu 200-62.5-25 mcg (Trelegy Ellipta) 1 inh inhalation DAILY furosemide 20 mg PO DAILY metoprolol succinate ER (Toprol XL) 50 mg PO DAILY nicotine 7 mg transdermal DAILY prednisone 40 mg (2 x 20 mg) PO DAILY tamsulosin 0.4 mg PO DAILY walker Folding Front wheeled walker duration 99 days walker Folding Front wheeled walker duration 99 days H[place] [facility] [place]: Details: Linus is a 68-year-old male presenting for evaluation and management of atrial flutter during recent exacerbation of COPD. The patient has a history of COPD and SVT that was treated with adenosine 10/2023. He does report having intermittent heart palpitations since that time. Recent smoking cessation three weeks ago led to some improvement in his breathing. Ongoing issues include edema, knee pain due to arthritis planned for surgical intervention, Left TKR on 09/08/24. He admits to history of untreated sleep apnea stating he is unable to wear at mask during sleep. No bleeding issues reported with anticoagulation use. is present. [facility] Medical History (Updated 07/24/24 @ 11:57 by Rachana Wang, ALARM INSTALLATION TECHNICIAN-C) SVT (supraventricular tachycardia) Chronic lung disease HCV (hepatitis C virus) Nicotine dependence, cigarettes, uncomplicated MRSA (methicillin resistant Staphylococcus aureus) TMJ (dislocation of temporomandibular joint) Tubular adenoma of colon Surgical History History of liver biopsy History of colonoscopy History of bronchoscopy History of right knee surgery Social History Household Members: Significant Other and Family Housing: House Are you a primary animal caretaker supervisor to a significant other at home: Yes (takes care of mother) Do you presently have visiting nurse or other home services: No Patient Tobacco Use Status: Current everyday Tobacco user Tobacco use type: Cigarette Cigarette Packs Per Day: 0.5 Cigarettes Per Day: 2 Second Hand Smoke Exposure: No Substance Use Type: Crack/Cocaine service: No Review of Systems Const All systems reviewed & are unremarkable except as noted in HPI and below Denies weakness ENT Denies dizziness Card Details: sedentary Denies chest pain, Denies chest pain with activity, Denies syncope, Denies rapid heart rate, Denies pedal edema, Denies edema, Denies leg edema, Denies lightheadedness, Denies palpitations, Denies dyspnea, Denies dyspnea on exertion and Denies orthopnea Resp Denies cough, Denies dyspnea and Denies dyspnea on exertion GI Denies hematochezia and Denies change in stool character Musc Details: mild swelling left lower leg, left knee pain Reports abnormal gait, Denies muscle cramps, Denies muscle weakness, Denies numbness, Denies radiating pain into limb and Denies tingling Neuro Reports abnormal gait, Denies dizziness, Denies syncope, Denies numbness, Denies tingling and Denies weakness Endo Denies palpitations Physical Exam Vital Signs: Last Vital Signs Pulse 74 07/24/24 09:20 BP 108/60 07/24/24 09:20 Const Other: sitting in wheelchair General: cooperative, healthy appearing, comfortable and no acute distress Orientation/consciousness: patient oriented x3 Neck Neck: Yes normal visual inspection Resp Effort & Inspection: normal respiratory effort Auscultation: clear to auscultation bilaterally, no rales, no rhonchi and no wheezes Cardio Jugular venous distension: no JVD Rate: regular rate Rhythm: regular rhythm Heart sounds: S1 normal heart sound present, S2 normal heart sound present, no gallops, no murmurs and no rubs Neuro General: patient oriented x3 Extrem Other: +1 edema left lower leg/ ankle General: No no pedal edema and No calf tenderness Psych Appearance: grossly normal Mental Status: mental status grossly normal Speech and movement: Normal speech and movement present Office Procedures EKG Details: Today, read by me, normal sinus rhythm with ST and T-wave abnormality inferiorly, rate 74, QTC 388 millisecond [id number], Complete Results Reviewed Results Reviewed: Echo 07/08/2024 Conclusions: - Normal left ventricular cavity size. There is normal left ventricular wall thickness. The left ventricular systolic function is hyperdynamic. The visually estimated ejection fraction is >70%. Diastolic function is normal for age. - Normal right ventricular cavity size and systolic function. - There is mild aortic valve stenosis. Assessment & Plan Assessment & Plan (1) Atrial flutter: Code(s): I48.92 - Unspecified atrial flutter Category: Medical Plan: Recent [facility] [place] shortness of breath, COPD exacerbation and while in the ER he went into atrial flutter. He was managed with rate control using diltiazem and metoprolol and converted to sinus rhythm. He was discharged with Eliquis 5 mg b.i.d.. EKG done today showing normal sinus rhythm with ST and T- wave abnormality inferiorly, rate 74. Will continue with current med management. Will check Holter monitor to assess paroxysmal AFib/flutter. Will check with his primary granite chip terrazzo finisher regarding nuclear stress test. Cardiology follow-up 3 months, sooner if needed (2) COPD exacerbation: Code(s): J44.1 - Chronic obstructive pulmonary disease with (acute) exacerbation Category: Medical Plan: Controlled at this time. (3) Preop cardiovascular exam: Code(s): Z01.810 - Encounter for preprocedural cardiovascular examination Category: Medical Plan: Preop for left total knee replacement, scheduled for 09/08/2024. Will check with his primary granite chip terrazzo finisher regarding preop clearance. His Eliquis will need to be held for 48 hours prior to the procedure and restarted as soon as cleared by surgeon to do so. Continue metoprolol and diltiazem without interruption. Call/consult Cardiology if needed. (4) Hospital discharge follow-up: Code(s): Z09 - Encounter for follow-up examination after completed treatment for conditions other than malignant neoplasm Category: Medical Plan: Reviewed (5) Aortic stenosis: Code(s): I35.0 - Nonrheumatic aortic (valve) stenosis Category: Medical Plan: Recent echo showing mild aortic stenosis. Will need to follow with periodic echoes. Plan I discussed the atrial flutter condition with the patient, outlining the management strategy involving rate control with diltiazem and metoprolol and anticoagulation via Eliquis, which blocks potential thromboembolism risk while highlighting the necessity of holding medication before surgery. I elaborated on the need for a heart monitor to assess the effectiveness of treatment for the atrial flutter episode. We also addressed the abnormal findings on his EKG and the probable need for stress test for further evaluation. Informed him I would discuss this with his primary granite chip terrazzo finisher to see if it is required prior to his surgery. The essential significance of continuing COPD management while celebrating smoking cessation was communicated, along with the refusal of CPAP therapy for sleep apnea, implying the importance of addressing this through lifestyle interventions and monitoring. Follow-up communication will review the heart monitor results and future stress test findings, ensuring proper management. Orders: Orders ECG 3 day holter monitor Today I48.92 - Unspecified atrial flutter Medications: Refilled apixaban (Eliquis) 5 mg PO BID 90 days 180 tabs 3RF Patient Instructions: - Take all prescribed medicines as directed. - Stop Eliquis 48 hours before knee surgery and follow surgeon's advice on when to restart. - Attend all follow-up appointments, especially for heart monitoring. - Keep up with the smoking cessation effort. - Monitor for shortness of breath or heart palpitations. - Contact healthcare provider if experiencing chest pain, severe breathing difficulties, or unusual bleeding.. - Engage in lifestyle changes to aid sleep apnea management. Patient was informed and verbally consented to the use of an ambient scribe for clinic note documentation during this visit. Visit time spent on chart review, interview, assessment, orders, documentation. Coding Level of Care Code Est Pt Level 4 (50052) Complex EM visit Add On G2211 Diagnoses Atrial flutter I48.92 COPD exacerbation J44.1 Preop cardiovascular exam Z01.810 Hospital discharge follow-up Z09 Aortic stenosis I35.0 CPT Codes EKG - CPT: [id number], Complete ([id number]) Time Spent (min) 30
[2024-07-24 09:20] VITALS: BP 108/60; PULSE 74
--- OUTSIDE RECORDS SUMMARY | 2024-07-24 09:31 | XMS_ITS | Clinical Summary ---
Author Organization [facility] Address [address] [place] [address] Phone Care Team Providers Care Life Sciences Instructor Name Role Phone Flor Chandra MD Primary [...] this topic Insurance [employer] Care Teams Life Sciences Instructor Relationship Specialty Start Date End Date Flor Chandra MD [address] [place] [address] PCP - General 02/29/20
== END 2024-07-24 10:01 | disposition home or self-care (01) ==
LOC: HO.HCS 09:07
PROVIDERS: PCP Internal Medicine; Visit Provider Nurse Practitioner Family
DX: I48.92 Unspecified atrial flutter (principal); J44.1 Chronic obstructive pulmonary disease with (acute) exacerbation; Z01.810 Encounter for preprocedural cardiovascular examination; Z09 Encounter for follow-up examination after completed treatment for conditions other than malignant neoplasm; I35.0 Nonrheumatic aortic (valve) stenosis
CPT/HCPCS: 93010; 99214; G2211

== ENCOUNTER → 2024-07-24 09:06 | Outpatient (BNVA) | payer MEDICARE, SELFPAY | PROVIDERS: PCP Internal Medicine; Visit Provider Nurse Practitioner Family | DX: Z01.810 Encounter for preprocedural cardiovascular examination (principal); I48.92 Unspecified atrial flutter; J44.1 Chronic obstructive pulmonary disease with (acute) exacerbation; I35.0 Nonrheumatic aortic (valve) stenosis; Z79.01 Long term (current) use of anticoagulants; Z79.899 Other long term (current) drug therapy | CPT/HCPCS: 93005; 99212 ==

== ENCOUNTER → 2024-08-06 08:08 | Outpatient (REF) | payer MEDICARE, SELFPAY ==
--- NOTE | 2024-08-06 08:10 | HM_ITS ---
* Total monitoring time 3 days. * Underlying rhythm is atrial fibrillation. * Average ventricular rate 94/Min. About 27% of the time, rate > 100/Min. * Rare ventricular ectopy. * No significant pauses or high-grade AV blocks. * No patient markers or diary events. MTDD
--- OUTSIDE RECORDS SUMMARY | 2024-08-06 08:14 | XMS_ITS | Clinical Summary ---
Author Organization [facility] Address [address] [place] [address] Phone Care Team Providers Care Airline Mechanic Name Role Phone Flor Chandra MD Primary [...] this topic Insurance [employer] Care Teams Airline Mechanic Relationship Specialty Start Date End Date Flor Chandra MD [address] [place] [address] PCP - General 02/29/20
== END ==
LOC: HO.CARD 08:08
PROVIDERS: Visit Provider Nurse Practitioner Family
DX: I48.92 Unspecified atrial flutter (principal)
CPT/HCPCS: 93242

== ENCOUNTER → 2024-08-06 08:10 | Outpatient (BNV) | payer MEDICARE, SELFPAY | PROVIDERS: Visit Provider Internal Medicine | DX: I48.91 Unspecified atrial fibrillation (principal) | CPT/HCPCS: 93244 ==

== ENCOUNTER → 2024-08-11 12:53 | Outpatient (BNVA) | payer MEDICARE, SELFPAY | PROVIDERS: PCP Internal Medicine | DX: Z01.818 Encounter for other preprocedural examination (principal) ==

== ENCOUNTER 2024-09-04 14:06 | Outpatient (AMB) | payer MEDICARE, SELFPAY ==
--- OUTSIDE RECORDS SUMMARY | 2024-09-04 14:09 | XMS_ITS | Clinical Summary ---
Author Organization [facility] Address [address] [place] [address] Phone Care Team Providers Care College Director Name Role Phone Flor Chandra MD Primary Care Provider [phone] Allergies Active Allergy Reactions Criticality Noted Date [...] Colorectal Cancer Screening: Sigmoidoscopy 12/03/2004 Influenza Vaccine (#1) 2024 Hepatitis B Vaccine Aged Out No longe r eligible based on patient's age to complete this topic Insurance [employer] Care Teams College Director Relationship Specialty Start Date End Date Flor Chandra MD [address] [place] [address] PCP - General 02/29/20
--- NOTE | 2024-09-04 14:12 | MHC.OFFVIS ---
Vital Signs 09/04/24 14:19 Height 6 ft 3 in Weight 165 lb BMI 20.6 Intake Visit Reasons: Pre-Op: L TKA w/NE 09/08/24 Intake Note: Linus is a 68 year old male who presents today for a Total Joint Pre-Op. He is currently booked for a Left Total Knee Arthroplasty with Dr. Rajan on 09/08/24. Pain management agreement reviewed and signed. Allergies shellfish derived (shellfish) Allergy (Severe, Verified 09/04/24 14:18) Swelling (one occurrence-does eat shellfish now) Penicillins (PENICILLINS) Allergy (Unknown, Verified 09/04/24 14:18) Unknown-childhood allergy Medication List - Last Reconciled 09/07/24 by Uyen Tate PA-C apixaban (Eliquis) 5 mg PO BID 30 days cane As directed diltiazem HCl CD (Cardizem CD) 120 mg See Protocol PO QAM lbuekbgkpyl-wgmiyafem-rdmzlvml 200-62.5-25 mcg (Trelegy Ellipta) 1 inh inhalation QAM metoprolol succinate ER (Toprol XL) 75 mg (1.5 x 50 mg) PO QAM 90 days nicotine 7 mg transdermal DAILY walker Folding Front wheeled walker duration 99 days walker Folding Front wheeled walker duration 99 days HPI Comments Details: Mr Hooper presents to the office today for preop visit. He is scheduled for left total knee arthroplasty with Dr. Rajan. He continues to have ongoing pain and difficulty with ambulation in the left knee, which is affecting his quality of life; therefore, he has elected to move forward with surgery. [facility] Medical History (Updated 08/10/24 @ 12:13 by Desiree Eaton RN) Cocaine abuse in remission History of cardioversion Arthritis COPD (chronic obstructive pulmonary disease) Atrial flutter NATANAEL (obstructive sleep apnea) SVT (supraventricular tachycardia) Chronic lung disease HCV (hepatitis C virus) MRSA (methicillin resistant Staphylococcus aureus) TMJ (dislocation of temporomandibular joint) Surgical History History of repair of ACL History of liver biopsy History of colonoscopy History of bronchoscopy History of right knee surgery Social History Household Members: Significant Other and Family Housing: House Are you a primary doggy daycare activities director to a significant other at home: No Do you presently have visiting nurse or other home services: No Patient Tobacco Use Status: Former Tobacco user Tobacco use type: Cigarette Cigarette Packs Per Day: 0.5 Cigarettes Per Day: 2 Years Smoked: 56 Second Hand Smoke Exposure: No Substance Use Type: Crack/Cocaine service: No Review of Systems Const All systems reviewed & are unremarkable except as noted in HPI and below Physical Exam Vital Signs: BMI result Body Mass Index 20.6 Extrem Other: Skin intact no open wounds Medial compartment mild tenderness to palpation. Near full range of motion. No lateral tenderness to palpation. Assessment & Plan Assessment & Plan (1) Osteoarthritis of left knee: Code(s): M17.12 - Unilateral primary osteoarthritis, left knee Category: Medical Plan: I discussed in detail the procedure and what to expect pre and post operatively. We discussed the risks, benefits and alternatives to the surgery as well as the rehabilitation course. The risks; which include, but are not limited to infection, bleeding, nerve injury, ongoing pain, swelling, and stiffness, perioperative risk of injury to bones and soft tissues, and blood clots. I?ve answered all questions and with their understanding they have consented to move forward with Left total knee arthroplasty with Dr. Rajan Patient plans to be discharged home with VNA services Plan is to attend core physical therapy, order was placed today to begin after his 1st postop appointment. Patient is on Eliquis which will be discontinued prior to surgery. He will begin Lovenox 23 hours postop for 48 hours and then resume his Eliquis. Orders: Orders PT Evaluation and Treatment 09/04/24 Z96.652 - Presence of left artificial knee joint Type and Screen 09/04/24 Z01.818 - Encounter for other preprocedural examination Basic Metabolic Panel 09/04/24 Z01.818 - Encounter for other preprocedural examination Complete Blood Count Auto Diff 09/04/24 Z01.818 - Encounter for other preprocedural examination Coding Level of Care Code Est Pt Level 3 (41530) Complex EM visit Add On G2211 Diagnoses Osteoarthritis of left knee M17.12
[2024-09-04 14:19] VITALS: BMI 20.6
== END 2024-09-04 14:44 | disposition home or self-care (01) ==
LOC: HO.HOS 14:07
PROVIDERS: PCP Internal Medicine; Visit Provider Physician Assistant
DX: M17.12 Unilateral primary osteoarthritis, left knee (principal)
CPT/HCPCS: 99213; G2211

== ENCOUNTER → 2024-09-04 14:06 | Outpatient (BNVA) | payer MEDICARE, SELFPAY | PROVIDERS: PCP Internal Medicine; Visit Provider Physician Assistant | DX: Z01.818 Encounter for other preprocedural examination (principal); M17.12 Unilateral primary osteoarthritis, left knee; Z79.01 Long term (current) use of anticoagulants; Z79.899 Other long term (current) drug therapy | CPT/HCPCS: 99212 ==

== ENCOUNTER 2024-09-07 08:00 | Outpatient (REF) | payer MEDICARE, SELFPAY ==
--- OUTSIDE RECORDS SUMMARY | 2024-09-07 08:04 | XMS_ITS | Clinical Summary ---
Author Organization [facility] Address [address] [place] [address] Phone Care Team Providers Care Livestock Sales Representative Name Role Phone Flor Chandra MD Primary [...] this topic Insurance [employer] Care Teams Livestock Sales Representative Relationship Specialty Start Date End Date Flor Chandra MD [address] [place] [address] PCP - General 02/29/20
== END 2024-09-07 08:01 | disposition home or self-care (01) ==
LOC: HO.SH 08:00
PROVIDERS: Visit Provider Internal Medicine
DX: Z01.118 Encounter for examination of ears and hearing with other abnormal findings (principal); H90.3 Sensorineural hearing loss, bilateral
CPT/HCPCS: 92557; 92567

== ENCOUNTER 2024-09-07 14:20 | Outpatient (REF) | payer MEDICARE, SELFPAY ==
[2024-09-07 14:45] LABS: MANUAL DIFF FLAG NO
[2024-09-07 15:12] LABS: Hematocrit 38.2 % (42.0-52.0); Hemoglobin 12.2 g/dl (14.0-18.0); Imm Gran Abs Auto 0.03 X10*3/uL (0.00-0.03); Imm Gran Pct Auto 0.3 % (0.0-0.4); Lymphocytes Absolute Auto 3.3 X10*3/uL (1.2-4.9); Mean Corpuscular HGB Conc 31.9 g/dl (31.0-36.0); Mean Corpuscular Hemoglobin 29.2 pg (27.0-33.0); Mean Corpuscular Volume 91.4 fL (80.0-98.0); NRBC Abs Auto 0.000 X10*3/uL (0.0-0.012); NRBC Pct Auto 0.0 /100WBC (0.0-0.2); Platelet Count 328 X10*3/uL (160-400); Red Blood Count 4.18 X10*6/uL (4.60-5.80); White Blood Count 9.9 X10*3/uL (4.8-10.8)
[2024-09-07 15:36] LABS: Anion Gap 11 (12-20); Blood Urea Nitrogen 25 mg/dL (9-16); Calcium 8.9 mg/dL (8.4-10.2); Carbon Dioxide 26 mmol/L (22-29); Chloride 111 mmol/L (96-108); Estimated Glomerular Filt Rate 54; Potassium 4.2 mmol/L (3.3-5.1); Sodium 144 mmol/L (135-145)
== END 2024-09-07 14:21 | disposition home or self-care (01) ==
LOC: HO.LAB 14:20
PROVIDERS: PCP Internal Medicine; Visit Provider Physician Assistant
DX: Z01.818 Encounter for other preprocedural examination (principal)
CPT/HCPCS: 36415; 80048; 85025

== ENCOUNTER → 2024-09-08 08:55 | Outpatient (BNV) | payer MEDICARE, SELFPAY | PROVIDERS: PCP Internal Medicine; Visit Provider Nurse Practitioner Family | DX: I48.3 Typical atrial flutter (principal); I35.0 Nonrheumatic aortic (valve) stenosis | CPT/HCPCS: 99223; 99232 ==

== ENCOUNTER → 2024-09-08 08:55 | Outpatient (BNV) | payer MEDICARE, SELFPAY | PROVIDERS: PCP Internal Medicine; Visit Provider Orthopaedic Surgery | DX: Z96.652 Presence of left artificial knee joint (principal) | CPT/HCPCS: 27447; 99024; G0180 ==

== ENCOUNTER → 2024-09-08 13:29 | Outpatient (BNV) | payer MEDICARE, SELFPAY | PROVIDERS: PCP Internal Medicine; Visit Provider Radiology Diagnostic Radiology | DX: M25.562 Pain in left knee (principal) | CPT/HCPCS: 73560 ==

== ENCOUNTER 2024-09-09 09:43 | Inpatient (IN) | payer MEDICARE, SELFPAY ==
--- OUTSIDE RECORDS SUMMARY | 2024-06-26 12:15 | XMS_ITS | Patient Health Record ---
Author Organization [facility] Address [address] [place] [address] Care Team Providers Care Gun Tester Name Role Phone Flor Chandra Primary Care Provider Dontrell Meade Unavailable [phone] Allergies Allergen (clinical drug ingredient) Drug/Non Drug Allergy documented on EMR Reaction Allergy Type Onset Date Status Penicillin Unknown Drug Allergy Active Results Component Value Reference Range Notes Complete Blood Count Auto Di ff Reviewed date:06/16/2024 09:42:41 AM Interpretation: Performing Lab:[facility], [address] [place] [phone] Notes/Report: White Blood Count 9.5 4.8-10.8 X10*3/uL Red Blood Count 4.48 4.60-5.80 X10*6/uL Hemoglobin 13.1 14.0-18.0 g/dl Hematocrit 40.8 42.0-52.0 % Mean Corpuscular Volume 91.1 80.0-98.0 fL Mean Corpuscular Hemoglobin 29.2 27.0-33.0 pg Mean Corpuscular HGB Conc 32.1 31.0-36.0 g/dl Red Cell Distribution Width 15.2 11.0-16.0 % Platelet Count 275 160-400 X10*3/uL Mean Platelet Volume 9.8 9.4-12.4 fL Neutrophils Percent Auto 49.8 45-73 % Imm Gran Pct Auto 0.3 0.0-0.4 % Lymphocytes Percent Auto 35.3 20-40 % Monocytes Percent Auto 9.8 2-11 % Eosinophils Percent Auto 3.7 0-4 % Basophils Percent Auto 1.1 0-2 % NRBC Pct Auto 0.0 0.0-0.2 /100WBC Neutrophils Absolute Auto 4.7 2.0-8.3 x10*3/uL Imm Gran Abs Auto 0.03 0.00-0.03 X10*3/uL Lymphocytes Absolute Auto 3.3 1.2-4.9 X10*3/uL Monocytes Absolute Auto 0.9 0.1-1.2 X10*3/uL Eosinophils Absolute Auto 0.4 0.0-0.4 X10*3/uL Basophils Absolute Auto 0.1 0.0-0.2 X10*3/uL NRBC Abs Auto 0.000 0.0-0.012 X10*3/uL Prothrombin Time INR Reviewed date:06/16/2024 09:42:26 AM Interpretation: Performing Lab:[address] [address] Notes/Report: Prothrombin Time 10.6 10.9-12.4 SEC INTERNATIONAL NORM RATIO 0.9 0.9-1.1 INTERNATIONAL NORMALIZED RATIO (INR) REFERENCE RANGES Reference Range For patients not on anticoagulant therapy: 0.9 - 1.1 INR ranges for oral anticoagulant therapy: For prevention and treatment of venous thrombosis and pulmonary embolism: 2.0 - 3.0 For acute myocardial infarction with aspirin therapy: 2.0 - 3.0 For acute myocardial infarction without aspirin therapy: 3.0 - 4.0 For patients with mechanical prosthetic heart valves: 2.5 - 3.5 Liver Panel Reviewed date:06/16/2024 09:42:17 AM Interpretation: Performing Lab:[address] [address] Notes/Report: Bilirubin Total 0.4 0.0-1.0 mg/dL Bilirubin Direct 0.2 0.0-0.5 mg/dL Aspartate Amino Transferase 31 5-37 U/L Alanine Aminotransferase 26 0-40 U/L Total Protein 7.0 6.5-8.0 g/dL Albumin Level 4.0 3.5-5.0 g/dL Alkaline Phosphatase 132 39-117 U/L Alpha Fetoprotein Reviewed date:06/20/2024 10:10:33 PM Interpretation: Performing Lab:[address] [address] Notes/Report: Alpha Fetoprotein 1.8 <6.1 ng/mL This test was performed using the Henry Huxford chemiluminescent method. Values obtained from different assay methods cannot be used interchangeably. AFP levels, regardless of value, should not be interpreted as absolute evidence of the presence or absence of disease. THIS TEST WAS PERFORMED AT: [facility] [address] [place] [phone] BECKA RAI MD Liver Fibrosis Pnl Reviewed date:06/20/2024 10:10:25 PM Interpretation: Performing Lab:[facility], [address] [place] [phone] Notes/Report: Liver Fibrosis Score 0.20 Liver Fibrosis Stage F0 Liver Fibrosis Interpretation SEE NOTE no fibrosis Fibro Test Score (f) Metavir Score f>=0 and f<=0.21 : F0 (no fibrosis) f>0.21 and f<=0.27 : F0-F1 (no fibrosis) f>0.27 and f<=0.31 : F1 (minimal fibrosis) f>0.31 and f<=0.48 : F1-F2 (minimal fibrosis) f>0.48 and f<=0.58 : F2 (moderate fibrosis) f>0.58 and f<=0.72 : F3 (advanced fibrosis) f>0.72 and f<=0.74 : F3-F4 (advanced fibrosis) f>0.74 and f<=1.00 : F4 (severe fibrosis) Nec Inflam Act Score 0.06 Nec Inflam Act Grade A0 Nec Inflam Act Interpretation SEE NOTE no activity ActiTest Score (a) Metavir Score a>=0 and a<=0.17 : A0 (no activity) a>0.17 and a<=0.29 : A0-A1 (no activity) a>0.29 and a<=0.36 : A1 (minimal activity) a>0.36 and a<=0.52 : A1-A2 (minimal activity) a>0.52 and a<=0.60 : A2 (significant activity) a>0.60 and a<=0.62 : A2-A3 (significant activity) a>0.62 and a<=1.00 : A3 (severe activity) QOB-Zsicx-0-Macroglobuli n 223 106-279 mg/dL FIB-Haptoglobin 146 43-212 mg/dL FIB-Apolipoprotein A1 167 94-176 mg/dL FIB-Total Bilirubin 0.5 0.2-1.2 mg/dL FIB-GGT 9 3-70 U/L FIB-ALT 18 9-46 U/L Reference ID [id number] Footnote SEE NOTE The reliability of results is dependent on compliance with the preanalytical and analytical conditions recommended by [employer]. The tests have to be deferred for: acute hemolysis, acute hepatitis, acute inflammation, extra hepatic cholestasis. The advice of a specialist should be sought for interpretation in chronic hemolysis and Gilbert's syndrome. The test interpretation is not validated in liver transplant patients. Isolated extreme values of one of the components should lead to caution in interpreting the results. In case of discordance between a biopsy result and a test, it is recommended to seek the advice of a specialist. The causes of these discordances could be due to a flaw of the test or to a flaw in the biopsy: i.e. a liver biopsy has a 33% variability rate for one fibrosis stage. FibroTest is interpretable for chronic hepatitis B and C, alcoholic and non alcoholic steatosis. ActiTest is interpretable for chronic hepatitis B and C. The performance characteristics have been determined by [facility]. It has not been cleared or approved by the U.S. Food and Drug Administration. Performance characteristics refer to the analytical performance of the test. [employer], [employer], the associated logo, [employer] and all associated [employer] wei are the registered trademarks of [employer]. All third republican wei - (R) and (TM) - are the property of their respective owners. (C) [id number] [employer]. All rights reserved. THIS TEST WAS PERFORMED AT: [employer] [facility] [address] [place] [address] PRASHANT DRAKE MD,PHD,MANASA Hep C Viral Load Reviewed date:06/18/2024 12:58:28 AM Interpretation: Performing Lab:[facility], [address] [place] [phone] Notes/Report: HepC Viral Load <15 NOT DETECTED NOT DETECTED IU/mL HCV Log PCR <1.18 NOT DETECTED NOT DETECTED Log IU/mL For additional information, please refer to http://education.myAchy/faq/FA Q22v1 (This link is being provided for informational/ educational purposes only.) THIS TEST WAS PERFORMED AT: [facility] [address] [place] [phone] BECKA RAI MD US abdomen comp w elastograp hy (Not yet reviewed by provider) Interpretation: Performing Lab: Notes/Report: [address] [address] Ultrasound Report Signed Patient: Linus Hooper MR#: [id number] : 1955 Acct:[id number] Age/Sex: 68 / M ADM Date: 06/16/24 Loc: HO.US Attending Dr: Dontrell Cbaa MD Ordering Physician: Dontrell Caba MD Date of Service: 06/16/24 Procedure(s): US abdomen comp w elastography Accession Number(s): [id number] cc: Flor Chandra MD; Dontrell Caba MD EXAMINATION: US ABDOMEN COMPLETE WITH LIVER ELASTOGRAPHY HISTORY: FIBROSIS OF LIVER, HISTORY OF CHRONIC HEPATITIS TECHNIQUE: Real-time grayscale ultrasound imaging of the abdomen was performed and images were reviewed. COMPARISON: Comparison is made with the prior examination dated 05/04/2022. FINDINGS: Liver: The right lobe of the liver measures 14.3 cm in size. The left lobe of the liver measures 10.8 cm in size. The liver demonstrates normal homogeneous echotexture, but a mildly nodular contour suggestive of cirrhosis. No focal mass or intrahepatic biliary ductal dilatation is identified. There is normal hepatopedal flow in the portal vein. Ultrasound elastography of the liver was performed with 10 separate measurements of the liver parenchyma with the patient in the supine position. Measurements were obtained approximately 2 cm below Cody's capsule and perpendicular to the capsule. Images are of satisfactory quality. The median shear wave velocity is 1.22 m/s (previously 1.59 m/s, although this was performed on a machine of a different vendor, limiting comparison). The interquartile range/median (IQR/median) is 0.30. Gallbladder and biliary tree: The gallbladder is unremarkable, without evidence of calculi, wall thickening, or pericholecystic fluid. There is no sonographic Palmer sign. The common bile duct is normal in caliber measuring 3 mm. Kidneys: The right kidney measures 11.1 cm in length and demonstrates a 13 x 8 x 13 mm upper pole cyst. The left kidney measures 11.2 cm in length and demonstrates 2 upper pole cysts measuring 15 x 13 x 13 mm and 6 x 5 x 5 mm. The kidneys are otherwise unremarkable, without evidence of solid masses, hydronephrosis, or calculi. Pancreas: The pancreatic head, neck, and body are unremarkable. The pancreatic tail is obscured by bowel gas. Spleen: The spleen is normal in size and contour, measuring 7.7 cm in length. Abdominal aorta and inferior vena cava: The visualized portions of the abdominal aorta and inferior vena cava are normal in caliber. There is no free fluid in the abdomen. US/US abdomen comp w elastography IMPRESSION: Nodular liver contour, suggestive of cirrhosis. The median shear wave velocity in the liver is 1.22 m/s, corresponding to a median liver stiffness of 4.5 kPa. The IQR/median value is 0.30. This is indicative of a quality data set. Findings are indicative of a normal elastography value with a low likelihood of severe fibrosis or cirrhosis. REFERENCE: Society of Radiologists in Ultrasound Liver Stiffness Thresholds (2020): LIVER STIFFNESS THRESHOLDS: *Shear wave velocity less than 1.3 m/s (Liver Stiffness equal or less than 5 kPa): High probability of being normal. *Shear wave velocity less than 1.7 m/s (Liver Stiffness less than 9 kPa): In the absence of other known clinical signs, rules out compensated advanced chronic liver disease. *Shear wave velocity between 1.7-2.1 m/s (Liver Stiffness 9-13 kPa): Suggestive of compensated advanced chronic liver disease but need further test for confirmation. *Shear wave velocity between 2.1-2.4 m/s (Liver Stiffness 13-17 kPa): Rules in compensated advanced chronic liver disease. *Shear wave velocity greater than 2.4 m/s (Liver Stiffness over 17 kPa): Suggestive of clinically significant portal hypertension. QUALITY OF DATA SET: *IQR/Median value equal or less that 0.30 implies a quality data set. *IQR/Median value over 0.30 implies a poor quality data set. SIGNIFICANT CHANGE FROM PRIOR EXAM: Significant change if liver stiffness measurement is 10% or greater from prior exam. OTHER CONSIDERATIONS: The stage of liver fibrosis may be overestimated in the setting of acute hepatitis, liver inflammation, elevated liver function tests, hepatic vascular congestion, obstructive cholestasis, non-fasting state, and infiltrative diseases such as amyloidosis and lymphoma. In some patients with NAFLD, the liver stiffness thresholds for compensated advanced chronic liver disease may be lower. In causes other than viral hepatitis and NAFLD, liver stiffness thresholds are not well established. Electronically signed by: Dontrell Moran MD 06/17/2024 12:56 PM EDT RP Dictated By: Dontrell Moran MD Signed By: <Electronically signed by Dontrell Moran MD in OV> 06/17/24 1256 DD/ 0808 TD/TT: 06/16/24 0829 Steam Frame Operator: [place] [id number] Ultrasound Report Signed Patient: Linus Hooper MR#: [id number] : 1955 Acct:[id number] Age/Sex: 68 / M ADM Date: 06/16/24 Loc: HO.US Attending Dr: Dontrell Caba MD Ordering Physician: Dontrell Caba MD Date of Service: 06/16/24 Procedure(s): US abdomen comp w elastography Accession Number(s): [id number] cc: Flro Chandra MD; Dontrell Caba MD EXAMINATION: US ABDO MEN COMPLETE WITH LIVER ELASTOGRAPHY HISTORY: FIBROSIS OF LIVER, HISTORY OF CHRONIC HEPATITIS TECHNIQUE: Real-time grayscale ultrasound imaging of the abdomen was performed and images were reviewed. COMPARISON: Comparis on is made with the prior examination dated 05/04/2022. FINDINGS: Liver: The right lob e of the liver measures 14.3 cm in size. The left lobe of the liver measures 10.8 cm in size. The liver demonstrates normal homogeneous echotexture, but a mildly nodular contour suggestive of cirrhosis. No foc al mass or intrahepatic biliary ductal dilatation is identified. There is normal hepatopedal flow in the portal vein. Ultrasound elastogra phy of the liver was performed with 10 separate measurements of the liver parenchyma with the patient in the supine position. Measuremen ts were obtained approximately 2 cm below Cody's capsule an d perpendicular to the capsule. Images are of satisfactory quality. The median shear wav e velocity is 1.22 m/s (previously 1.59 m/s, although this was performed on a machine of a different vendor, limiting comparison). The interquartile range/median (IQR/median) is 0.30. Gallbladder and bili michael tree: The gallbladder is unremarkable, without evidence of calculi, wall thickening, or pericholecystic fluid. There is no sonographic Palmer sign. The common bile duct is normal in caliber measuring 3 mm. Kidneys: The right kidney measures 11.1 cm in length and demonstrates a 13 x 8 x 13 mm upp er pole cyst. The left kidney measures 11.2 cm in length and demonstra мария 2 upper pole cysts measuring 15 x 13 x 13 mm and 6 x 5 x 5 mm. Th e kidneys are otherwise unremarkable, without evidence of solid masses, hydronephrosis, or calculi. Pancreas: The pancreatic head, neck, and body are unremarkable. The pancreatic tail is obscured by bowel gas. Spleen: The spleen i s normal in size and contour, measuring 7.7 cm in length. Abdominal aorta and inferior vena cava: The visualized portions of the abdominal aorta and inferior vena cava are normal in caliber. There is no free flu id in the abdomen. US/US abdomen comp w elastography IMPRESSION: Nodular liver contou r, suggestive of cirrhosis. The median shear wav e velocity in the liver is 1.22 m/s, corresponding to a median liver stiffness of 4.5 kPa. The IQR/median value is 0.30. This is indicative o f a quality data set. Findings are indicat bryon of a normal elastography value with a low likelihood of severe fibrosis or cirrhosis. REFERENCE: Society of Radiologi sts in Ultrasound Liver Stiffness Thresholds (2020): LIVER STIFFNESS THRESHOLDS: *Shear wave velocity less than 1.3 m/s (Liver Stiffness equal or less than 5 kPa): High probability of being normal. *Shear wave velocity less than 1.7 m/s (Liver Stiffness less than 9 kPa): In the absence of other known clinical signs, rules out compensated advanced chronic liver disease. *Shear wave velocity between 1.7-2.1 m/s (Liver Stiffness 9-13 kPa): Suggestive of compensated advanced chronic liver disease but need further test for confirmation. *Shear wave velocity between 2.1-2.4 m/s (Liver Stiffness 13-17 kPa): Rules in compensated advanced chronic liver disease. *Shear wave velocity greater than 2.4 m/s (Liver Stiffness over 17 kPa): Suggestive of clinically significant portal hypertension. QUALITY OF DATA SET: *IQR/Median value eq ual or less that 0.30 implies a quality data set. *IQR/Median value ov er 0.30 implies a poor quality data set. SIGNIFICANT CHANGE F ROM PRIOR EXAM: Significant change i f liver stiffness measurement is 10% or greater from prior exam. OTHER CONSIDERATIONS: The stage of liver fibrosis may be overestimated in the setting of acute hepatitis, alfredo er inflammation, elevated liver function tests, hepatic vascular congestion, obstructive cholestasis, non-fasting state, and infiltrat bryon diseases such as amyloidosis and lymphoma. In some patients with NAFLD, the liver stiffness thresholds for compensated advanced chronic liver disease may be lower. In causes other than viral hepatitis and NAFLD, liver stiffness thresholds are not well established. Electronically elvira d by: Dontrell Moran MD 06/17/2024 12:56 PM EDT RP Dictated By: Dontrell Moran MD Signed By: <Electronically signed by Dontrell Moran MD in OV> 06/17/24 1256 DD/ 0808 TD/TT: 06/16/24 0829 Steam Frame Operator: Reason For Referral No Information Medications Medication SIG (Take, Route, Frequency, Duration) Notes Start Date End Date Status Wellbutrin Not-Takin g hydroCHLOROthiazide 12.5 MG 1 capsule in the morning Orally Once a day for 30 day(s) 04/25/2022 Active Immunizations Vaccine Route Administration Date Status Comme nts Influenza Unknown 11/25/2019 Administered Influenza Unknown 12/07/2020 Administered Influenza Unknown 12/05/2021 Administered Social History Tobacco Use: Social History Observation Description Date Details (start date - stop date) Former Smoker NA - NA Tobacco Use/Smoking Question Answer Notes Patient is a former smoker How long has it been since you last smoked? 1-3 months Section Notes: Smoker 1/2-1 ppd, no alcohol ; cocaine [id number] time was in 01/2015 Smoker 1/2-1 ppd, no alcohol ; cocaine use-he presently describes using some cocaine about once per month Smoker 1/2-1 ppd, no alcohol ; cocaine use-he presently describes using some cocaine about once per month Smoker 1/2-1 ppd, no alcohol ; cocaine use-he presently describes using some cocaine about once per month Smoker 1/2-1 ppd, no alcohol ; cocaine use-he presently describes using some cocaine about once per month Smoker 1/2-1 ppd, no alcohol ; history of cocaine use. Smoker 1/2-1 ppd but stopped smoking on 04/22/2021; no alcohol; history of cocaine use. Smoker 1/2-1 ppd but stopped smoking 02/2022; no alcohol; history of cocaine use. Problems Problem Type SNOMED Code ICD Code Onset Dates Problem Status W/U Status Risk Notes Problem 939726895 Encounter for screening for malignant neoplasm of colon (Z12.11) Active confirmed Problem Tubular adenoma of colon (533071051) Tubular adenoma of colon (D12.6) Active confirmed Problem 883032358 Chronic hepatiti s C without hepatic coma (B18.2) Active confirmed Problem 992011070 Chronic hepatiti s C (B18.2) Active confirmed Problem 194032954 Hx of adenomatou s colonic polyps (Z86.010) Active confirmed Problem 52118361185616 History of hepatitis C (Z86.19) Active confirmed Problem History of gastrointestinal disease (257210396) History of chronic hepatitis (Z87.19) Active confirmed Problem Diverticulosis of colon (601341585) Diverticulosis of colon (K57.30) Active confirmed Problem 13718029 Liver fibrosis (K74.00) Active confirmed Problem Fibrosis of liver (29027156) Fibrosis of liver (K74.00) Active confirmed Encounters Encounter Location Date Provider Diagnosis [facility] [address] [place] [phone] 10/15/2023 Dontrell Caba [facility] [address] [place] [phone] 12/10/2023 Dontrell Caba [facility] [address] [place] [phone] 02/24/2024 Dontrell Caba [facility] [address] [place] [phone] 02/25/2024 Dontrell Caba Fibrosis of liver K74.00 and History of chronic hepatitis Z87.19 [facility] [address] [place] [phone] 02/27/2024 Dontrell Caba Assessments Encounter Date Diagnosis (ICD Code) Assessment Notes Treatment Notes Treatment Clinical Notes Section Notes 02/25/2024 History of chronic hepatitis (ICD-10 - Z87.19) 02/25/2024 Fibrosis of liver (ICD-10 - K74.00) Plan Of Treatment Pending Test Test Name Order Date BUN 01/03/2016 CREATININE 01/03/2016 LIVER PROFILE 04/26/2021 LIVER PROFILE 06/01/2016 LIVER PROFILE 02/25/2024 LIVER PROFILE 04/25/2022 LIVER PROFILE 04/03/2016 LIVER PROFILE 07/12/2015 LIVER PROFILE 01/03/2016 CBC w DIFF 01/03/2016 CBC w DIFF 04/26/2021 CBC w DIFF 06/01/2016 CBC w DIFF 02/25/2024 CBC w DIFF 04/03/2016 CBC w DIFF 07/12/2015 PROTHROMBIN TIME (PT, INR) 04/26/2021 ALPHA-FETOPROTEIN,TUMOR MARKER 5 ALPHA-FETOPROTEIN,TUMOR MARKER 3 HEPATITIS C VIRAL LOAD 04/25/2022 HEPATITIS C VIRAL LOAD 04/03/2016 HEPATITIS C VIRAL LOAD 07/12/2015 HEPATITIS C VIRAL LOAD 01/03/2016 HEPATITIS C VIRAL LOAD 06/01/2016 HEPATITIS C VIRAL LOAD 04/26/2021 HEPATITIS C VIRAL LOAD 04/13/2020 HEPATITIS C VIRAL LOAD 02/25/2024 HCV LIVER FIBROSIS, FIBRO TEST 5 HCV LIVER FIBROSIS, FIBRO TEST 6 HCV LIVER FIBROSIS, FIBRO TEST 2 US ABDOMEN COMP WITH ELASTOGRAPHY 2021 US ABDOMEN COMP WITH ELASTOGRAPHY 2022 Prothrombin Time INR 02/25/2024 Alpha Fetoprotein 04/26/2021 Liver Fibrosis Pnl 04/25/2022 US abdomen comp w elastography 5 US abdomen comp w elastography 5 Future Test Test Name Order Date COLONOSCOPY 01/02/2017 COLONOSCOPY 04/25/2022 Next Appt Details Provider Name:Dontrell Caba , 06/26/2024 02:00:00 PM, [address] [place] [address], [address], [place], [address], Insurance Providers Payer Name Payer Address Payer Phone Subscriber Number Group Number Insured Name Patient Relationship to Insured Coverage Start Date Coverage End Date MEDICARE OF [place] [address] [place] [address] [phone] pt will bring card to appt LINUS CHIN Self - patient is the insured Medical (General) History Medical History History ICD Code TMJ--left--degenerative arthritis Denies FL,DM,CVA,Lung disease,renal dise ase Chronic hepatitis C--genotyp e 4ACD--liver biopsy Gr 02/21, Stage I/IV in May 2015--started the Harvoni in early April,--HCV viral load was negative 05/28/2016 and 12/2016 2 colonoscopies in [facility] ld-most recent one was at age 50--both negative--is in a 10 year recall by his report MRSA involving an abscess on his chest w all Colonoscopy 02/2017 with 2 small tubular adenomas Surgical History Surgery Date(Month/Year) ACL RECONSTRUCTION 1994,2011 DEGENERATIVE 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
--- OUTSIDE RECORDS SUMMARY | 2024-06-26 12:16 | XMS_ITS ---
Author Organization [facility] Address [address] [place] [address] Care Team Providers Care Parcel Post Officer Name Role Phone Flor Chandra Primary Care Provider Unavailab Dontrell Ramirez Unavailable [phone] REASON FOR VISIT Patient presents today for hep c Encounters Encounter Location Date Provider Diagnosis [facility] [address] [place] [address] 06/26/2024 Dontrell Caba Plan Of Treatment Next Appt Details Provider Name:Dontrell Caba , 06/26/2024 02:00:00 PM, [address], [address], [place], [address], Progress Notes * WALLY ALVARADODOB:[birth year] (68 yo M)Acc No.[id number]:06/26/2024 Progress Notes Patient:?WALLY ALVARADO Provider:?Dontrell Caba MD :1955???Age:68 Y???Sex:Male Romeo e:06/26/2024 Address:[address] [place], [place] [address] [phone] Pcp:Flor Chandra Subjective: * Chief Complaints: * ???1. Patient presents today for hep c. * Medical History:? Objective: * Vitals:? Assessment: Plan: * Treatment: * * The named appointment provid er may or may not be the originator of this progress note, and it is not deemed complete until electronically signed by the appointment provider. Sign off status: Pending * Provider:?Dontrell Caba MD Date:? 025 Generated for Emil sagastume/Arcadio/Meekitting on:?06/26/2024 12:16 PM EDT
--- OUTSIDE RECORDS SUMMARY | 2024-06-26 12:16 | XMS_ITS ---
Author Organization [facility] Address [address] [place] [address] Care Team Providers Care Ophthalmic Technician Name Role Phone Flor Chandra Primary Care Provider Unavailab Dontrell Ramirez Unavailable [phone] REASON FOR VISIT ultrasound Encounters Encounter Location Date Provider Diagnosis [facility] [address] [place] [address] 02/27/2024 Dontrell Caba Plan Of Treatment Next Appt Details Provider Name:Dontrell Caba , 06/26/2024 02:00:00 PM, [address], [address], [place], [address], Progress Notes * SIMAWALLY LAZARODOB:[birth year] (68 yo M)Acc No.[id number]:02/27/2024 Patient:?WALLY ALVARADO :1955???Age:68 Y???Sex:Male Address:[address] [place] [address] [place], [address] * true * Date:? Generated for Printi ng/Reginaldog/eTransmitting on:?06/26/2024 12:15 PM EDT
--- OUTSIDE RECORDS SUMMARY | 2024-06-26 12:16 | XMS_ITS ---
Author Organization [facility] Address [address] [place] [address] Care Team Providers Care Slot Machine Floor Person Name Role Phone Flor Chandra Primary Care Provider Unavailab Dontrell Ramirez Unavailable [phone] REASON FOR VISIT HEP C Encounters Encounter Location Date Provider Diagnosis [facility] [address] [place] [address] 02/26/2024 Dontrell Caba Plan Of Treatment Next Appt Details Provider Name:Dontrell Caba , 06/26/2024 02:00:00 PM, [address], [address], [place], [address], Progress Notes * WALLY ALVARADODOB:[birth year] (68 yo M)Acc No.[id number]:02/26/2024 Progress Notes Patient:?WALLY ALVARADO Provider:?Dontrell Caba MD :1955???Age:68 Y???Sex:Male Romeo e:02/26/2024 Address:[address] [place], [place] [id number] Pcp:Flor Chandra Subjective: * Chief Complaints: * ???1. HEP C. * Medical History:? Objective: * Vitals:? Assessment: Plan: * Treatment: * * The named appointment provid er may or may not be the originator of this progress note, and it is not deemed complete until electronically signed by the appointment provider. Sign off status: Pending * Provider:?Dontrell Caba MD Date:? 025 Generated for Emil sagastume/Arcadio/Shawn on:?06/26/2024 12:15 PM EDT
--- OUTSIDE RECORDS SUMMARY | 2024-06-26 12:16 | XMS_ITS | Clinical Summary ---
Author Organization [facility] Address [address] [place] [address] Phone Care Team Providers Care Book Agent Name Role Phone Flor Chandra MD Primary [...] this topic Insurance [employer] Care Teams Book Agent Relationship Specialty Start Date End Date Flor Chandra MD [address] [place] [address] PCP - General 02/29/20
[2024-08-10 10:31] VITALS: BP 121/81; PULSE 73; RESP 20; O2SAT 96; BMI 20.1
--- NOTE | 2024-08-10 10:44 | HO.ANESPROP2 ---
Documented by User: Radha Eric NP 08/18/24 10:54 HPI - Anesthesia Eval Consult details Narrative: 68yo M for Left Knee Total Arthroplasty, 09/08/24 Cardiac optimized. Follows [facility] Cardiology. New dx aflutter (eliquis) 06/2024, mild . OK'd to hold preop PCP Clearance pending No recent illness No CP/SOB with yard work and easy hiking Aortic stenosis: Mild per echo, JHON Cont.VTI: 1.14 COPD: Well controlled since 06/2024 admit on daily trelegy, no rescue inhaler needed NATANAEL: Cannot tolerate CPAP Chronic HCV with nodular liver on imaging suggesting cirrhosis: no ascites, no prolonged bleeding, plts and coags ok TMJ: resolved with dental extractions Pt with hx cocaine use. Aware of DOS tox screen policy and risks associated with use. PMFSH Active Problems Active Problems: All Active Problems Aortic stenosis (Acute) Hospital discharge follow-up (Acute) Preop cardiovascular exam (Acute) Atrial flutter (Acute) COPD exacerbation (Acute) Strain of left rotator cuff capsule (Acute) Arthritis of left acromioclavicular joint (Acute) Osteoarthritis of left knee (Acute) Fracture of head of fibula (Acute) History of reconstruction of anterior cruciate ligament tear (Acute) Left knee pain (Acute) Varicose veins of both lower extremities with inflammation (Acute) Nicotine dependence, cigarettes, uncomplicated (Acute) Past Medical History Medical History Cocaine abuse in remission History of cardioversion Arthritis COPD (chronic obstructive pulmonary disease) Atrial flutter NATANAEL (obstructive sleep apnea) SVT (supraventricular tachycardia) Chronic lung disease HCV (hepatitis C virus) MRSA (methicillin resistant Staphylococcus aureus) TMJ (dislocation of temporomandibular joint) Family History Family history of problems with anesthesia: No Surgical History Surgical History History of repair of ACL History of liver biopsy History of colonoscopy History of bronchoscopy History of right knee surgery History of Problems with Anesthesia: No Social History Social History Household Members: Significant Other and Family Housing: House Are you a primary home health care respiratory therapist to a significant other at home: No Do you presently have visiting nurse or other home services: No Patient Tobacco Use Status: Former Tobacco user Tobacco use type: Cigarette Cigarette Packs Per Day: 0.5 Cigarettes Per Day: 2 Years Smoked: 56 Smoked in Last 30 Days: Yes Patient Interested in Nicotine Replacement: Yes Second Hand Smoke Exposure: No Use of substances other than those prescribed or required for medical reasons: No Substance Use Type: Crack/Cocaine Have you been hit, kicked, punched, or otherwise hurt by someone within the past year? If so, by whom?: No Spiritual Healthcare Practices: no Anabaptism Healthcare Practices: no Cultural Healthcare Practices: no Are you DNR?: No Advance Directives: No (brother is primary contact) Advance Directives Information Provided: Yes (as above noted) Advance Directives on File: No service: No Meds Allergies Allergy/AdvReac Type Severity Reaction Status Date / Time shellfish derived (shellfish) Allergy Severe Swelling Verified 09/08/24 09:16 (one occurrence-does eat shellfish now) Penicillins (PENICILLINS) Allergy Unknown Unknown-childhood Verified 09/08/24 09:16 allergy Home Medications ?Medication ?Instructions ?Recorded ?Confirmed ?Last Taken ?Type fluticasone fur. 200 mcg-umeclid 1 inh inhalation QAM 07/06/24 09/08/24 09/08/24 History 62.5 mcg-vilant 25 mcg inhalat.powder (Trelegy Ellipta) diltiazem HCl 120 mg 120 mg PO QAM 08/10/24 09/08/24 09/08/24 History capsule,extended release 24 hr (Cardizem CD) Exam Height,Weight and Vital Signs: Height 6 ft 3 in Weight 73.028 kg Last Vital Signs Pulse 73 08/10/24 10:31 Resp 20 08/10/24 10:31 BP 121/81 08/10/24 10:31 Pulse Ox 96 08/10/24 10:31 O2 Del Method Room Air 08/10/24 10:31 Pertinent Lab Results Pertinent Lab Results: Lab Results 08/10/24 Range/Units 10:40 Nasal Screen MRSA (PCR) NEGATIVE (Negative) Nasal S. aureus Screen NEGATIVE (Negative) Nasal MRSA/S.aureus Interp SEE NOTE Narrative Narrative: EKG 07/2024 [address] sinus rhythm with ST and T-wave abnormality inferiorly, rate 74, QTC 388 millisecond ECHO 06/2024 Conclusions: - Normal left ventricular cavity size. There is normal left ventricular wall thickness. The left ventricular systolic function is hyperdynamic. The visually estimated ejection fraction is >70%. Diastolic function is normal for age. - Normal right ventricular cavity size and systolic function. - There is mild aortic valve stenosis. Airway Mallampati Class: II TM Dist: >3cm Neck ROM: Full Loose/Missing/Broken Teeth: Yes (extracted molars, crowned molars) Heart: RRR Lungs: CTAB Assessment and Plan Assessment Anesthesia Assessment: Anesthesia Plan Discussed, Smoking Cess. Discussed and PAT Visit Final Anesthetic Review Family History of Problems with Anesthesia: No History of Problems with Anesthesia: No Documented by User: Darrius Jones MD 09/08/24 11:05 REPLACED BY [facility] Past Medical History Medical History Cocaine abuse in remission History of cardioversion Arthritis COPD (chronic obstructive pulmonary disease) Atrial flutter NATANAEL (obstructive sleep apnea) SVT (supraventricular tachycardia) Chronic lung disease HCV (hepatitis C virus) MRSA (methicillin resistant Staphylococcus aureus) TMJ (dislocation of temporomandibular joint) Surgical History Surgical History History of repair of ACL History of liver biopsy History of colonoscopy History of bronchoscopy History of right knee surgery Social History Social History Household Members: Significant Other and Family Housing: House Are you a primary home health care respiratory therapist to a significant other at home: No Do you presently have visiting nurse or other home services: No Patient Tobacco Use Status: Former Tobacco user Tobacco use type: Cigarette Cigarette Packs Per Day: 0.5 Cigarettes Per Day: 2 Years Smoked: 56 Smoked in Last 30 Days: Yes Patient Interested in Nicotine Replacement: Yes Second Hand Smoke Exposure: No Use of substances other than those prescribed or required for medical reasons: No Substance Use Type: Crack/Cocaine Have you been hit, kicked, punched, or otherwise hurt by someone within the past year? If so, by whom?: No Spiritual Healthcare Practices: no Anabaptism Healthcare Practices: no Cultural Healthcare Practices: no Are you DNR?: No Advance Directives: No (brother is primary contact) Advance Directives Information Provided: Yes (as above noted) Advance Directives on File: No service: No Meds Allergies Allergy/AdvReac Type Severity Reaction Status Date / Time shellfish derived (shellfish) Allergy Severe Swelling Verified 09/08/24 09:16 (one occurrence-does eat shellfish now) Penicillins (PENICILLINS) Allergy Unknown Unknown-childhood Verified 09/08/24 09:16 allergy Home Medications ?Medication ?Instructions ?Recorded ?Confirmed ?Last Taken ?Type fluticasone fur. 200 mcg-umeclid 1 inh inhalation QAM 07/06/24 09/08/24 09/08/24 History 62.5 mcg-vilant 25 mcg inhalat.powder (Trelegy Ellipta) diltiazem HCl 120 mg 120 mg PO QAM 08/10/24 09/08/24 09/08/24 History capsule,extended release 24 hr (Cardizem CD) Assessment and Plan Final Anesthetic Review NPO: Yes ASA Class: III Final Preanesthetic Review: No Changes in Pt Med Stat, Meds/Allgs Chart Reviewed, Consent Obtained/Reviewed and Anes Risks/Benef Reviewed Patient Risk: Intermediate Procedure Risk: Low Anesthetic Plan Anesthetic Plan: MAC:, Spinal and Regional Block Disposition: Standard PACU
[2024-08-10 13:18] LABS: MRSA Nasal PCR NEGATIVE (Negative); SA Nasal PCR NEGATIVE (Negative)
[2024-09-08] VITALS (14 sets, daily range): BP systolic 100–160; BP diastolic 64–113; PULSE 61–80; RESP 8–18; TEMP 36.1–36.6; O2SAT 92–99; BMI 20.6; BMI 21.5
--- NOTE | 2024-09-08 08:37 | P.DS_ITS ---
DS: Providers Provider Date of Service: 09/10/24 Date of discharge: 09/10/24 Primary care physician: Flor Chandra MD DS: Summary Hospital Course Hospital Course: The patient underwent a successful left total knee arthroplasty, they were transferred to PACU and then to the floor to recover. During their stay, their vitals were stable, afebrile at 98.7. Labs were unremarkable, H/H 11.5/34.9. POD1 the patient was tachycardic. The medicine team evaluated this patient due to his history of A. Flutter. The patient was administered Metoprolol with regulation of heart rate. POD 1 they were started on Lovenox 40mg SubQ, one dose for DVT ppx, and may resume Eliquis on 09/10/24 they also received Physical Therapy services twice a day. Prior to discharge, their dressing was clean dry and intact, and the plan was to be discharged home with VNA services. Time Attestation Discharge Coordination Time (in mins): 30 Quality: Safe Use of Opioids Does Pt have an Active Cancer Diagnosis on the Problem List?: No Quality: Stroke Does the patient have a stroke diagnosis?: No Physical Exam Vital Signs: Vital Signs: Last Vital Signs Pulse 73 08/10/24 10:31 Resp 20 08/10/24 10:31 BP 121/81 08/10/24 10:31 Pulse Ox 96 08/10/24 10:31 O2 Del Method Room Air 08/10/24 10:31 BMI result Body Mass Index 20.1 Const: General: cooperative, healthy appearing and no acute distress Resp: Effort & Inspection: normal respiratory effort and able to speak in complete sentences Cardio: Rate: regular rate Peripheral pulses: Peripheral pulses 2+ throughout GI: Palpation (GI): Soft to palpation Skin: Lesions: no lesions Rashes: no rashes Extrem: Other: left knee dressing is c/d/i. Able to dorsi/plantar flex. Calf is supple and nontender. Sensation intact. Pedal pulse intact. DS: Data Data Completed and Pending Labs on day of discharge: Laboratory Results - last 24 hr 09/07/24 14:34 Blood Type O Positive Antibody Screen NEGATIVE Discharge Plan Discharge Patient Disposition: Home Health Service Referrals: D[facility] [Outside] - 3-5 Days Referral Note: Dannie ALLENA will call you to schedule home physical therapy appointments Uyen Tate PA-C [Physician Machine Room Engineer, Orthopedics] - 09/24/24 2:45 pm Discharge Medications: New celecoxib 200 mg Capsule 200 mg PO BID 30 Days Qty: 60 0RF acetaminophen 325 mg Tablet 650 mg PO Q6H PRN (Reason: Pain, Mild 1-3,Fever,Headache) 30 Days Qty: 240 0RF docusate sodium 100 mg Capsule 100 mg PO BID 7 Days Qty: 14 0RF oxycodone 10 mg tablet 10 mg PO Q4H PRN (Reason: Pain, Severe (Pain Scale 7-10)) 7 Days Qty: 42 0RF Rx Instructions: Partial Fill upon patient request. Continued (DME) cane Device See Rx Instructions .MEDSUPPLY Qty: 1 0RF Rx Instructions: As directed (DME) walker Misc See Rx Instructions .MEDSUPPLY Qty: 1 0RF Rx Instructions: Folding Front wheeled walker duration 99 days (DME) walker Misc See Rx Instructions .MEDSUPPLY Qty: 1 0RF Rx Instructions: Folding Front wheeled walker duration 99 days metoprolol succinate [Toprol XL] 50 mg tablet extended release 24 hr 75 mg PO QAM 90 Days Qty: 135 1RF Rx Instructions: Dose increase diltiazem HCl [Cardizem CD] 120 mg capsule,extended release 24hr 120 mg PO QAM Protocol: Hold for SBP/HR < HOLD for SBP < : 90 HOLD for HR < : 60 Trelegy Ellipta 200-62.5-25 mcg Blister With Device 1 inh INHALATION QAM Held Eliquis 5 mg tablet 5 mg PO BID 30 Days Qty: 60 11RF Hold Instructions: Resume on 09/10/24. Discharge Orders: Discharge Order (Routine); Ordered 09/10/24 Ordered By: Paulette Lay Diet: Advance to usual diet Activity on Discharge: Use cane or walker Print Language: Singaporean Activity Restrictions/Additional Instructions: Physical Therapy for ROM 0-120, quad strength, gait training. Use walker for ambulation Limit stair climbing, No shower, No tub bath, No driving Continue anticoagulant x 6 weeks for DVT ppx Keep Aquacel dressing clean, dry and intact. Follow up with orthopedics in 2 weeks Discharge Date/Time: 09/10/24 09:45
--- NOTE | 2024-09-08 08:37 | W.MHC.F2F ---
Service Date Service Date: 09/08/24 Encounter Date of encounter: 09/09/24 Reasons for Services Signs and symptoms assessed: s/p LTKA Pt. is considered homebound due to recent surgery. Unable to drive, poor balance, poor gait mechanics. Reason for physical therapy: home safety and mobility, therapeutic exercises, restore joint function, gait/transfer training and ADL training Homebound: Leaving the home is medically contraindicated at this time without the asist of a device and/or another person due th the listed conditions above and below. Reason homebound: unsteady gait / fall risk, leg weakness, pain with ambulation, poor balance / fall risk and unable to drive Certification: Based on the above findings, I certify that this patient is confined to the home and needs intermittent senior living care, physical therapy and/or speech therapy, or continues to need occupational therapy. The patient is under my care, and I have initiated the establishment of the plan of care. The patient will be followed by a physician who will periodically review the plan of care. Time Spent With Patient Time: Total time managing care of this patient today ____ minutes.
[2024-09-08 09:27] LABS: Cannabinoid Screen Urine Not Detected (Not Detect)
[2024-09-08 09:32] LABS: Hematocrit 40.5 % (42.0-52.0); Hemoglobin 13.0 g/dl (14.0-18.0)
[2024-09-08] MEDS: Lactated Ringers 1,000 ML 100 ML IVCONT ×2 (09:58→15:44)
--- NOTE | 2024-09-08 11:17 | MHC.SHP ---
Pre-Procedural Eval Section A - 24 Hr Update-Section A only Date of Service: 09/08/24 The patient is an INPATIENT: No Changes since office visit: No Cold of Flu in the past 2 weeks, No New Medical Problems, No Changes in Medication and No Patient answered all questions The patient has been examined within 24 hours of the surgical procedure. The History & Physical has been completed within 30 days and I have reviewed it.: Yes Section B - Complete if H&P > 30 days Chief Complaint: Pain in left knee Allergies: Allergies Allergy/AdvReac Type Severity Reaction Status Date / Time shellfish derived (shellfish) Allergy Severe Swelling Verified 09/08/24 09:16 (one occurrence-does eat shellfish now) Penicillins (PENICILLINS) Allergy Unknown Unknown-childhood Verified 09/08/24 09:16 allergy Plan I have reviewed the history and physical and performed a pertinent physical examination on my patient. No changes have occurred unless specified. Time Spent With Patient Time: Total time managing care of this patient today ____ minutes.
--- NOTE | 2024-09-08 13:13 | PM.OP ---
Brief Operative Note Date of Service: 09/08/24 Pre-op diagnosis: left knee OA Post-op diagnosis: same Procedure: left TKA Implants: [employer] Triathlon posterior stabilized 05/23/09ps/32a cemented Surgeon: William Rajan MD Anesthesia: GETA Was an Member Services Coordinator used for this Procedure?: Yes Member Services Coordinator: Uyen Tate Estimated blood loss (mL): 25 Tourniquet time (min): 70 IV fluids (mL): 1,000 Pathology: other Condition: stable Disposition: PACU
--- NOTE | 2024-09-08 14:05 | PHA.MEDREC ---
Addendum entered by Carmen Calderon RPh 09/08/24 14:07: Reviewed by [facility] Original Note: Pharmacy Consult ? Medication Reconciliation Pharmacy has reviewed the medication reconciliation done by nursing. Claims match med list.
[2024-09-08] MEDS: oxyCODONE HCl Immed Release 5 MG TABLET PO (15:02)
[2024-09-08] MEDS: Metoprolol Succinate ER 25 MG TAB.ER.24H 75 MG PO (15:44)
[2024-09-08] MEDS: 0.9 % Sodium Chloride Flush 3 ML SYRINGE IVFLUSH (15:45)
[2024-09-08] MEDS: oxyCODONE HCl Immed Release 5 MG TABLET 10 MG PO (17:34)
[2024-09-08] MEDS: oxyCODONE HCl ER 10 MG TAB.ER.12H PO (20:04)
--- NOTE | 2024-09-08 20:30 | HO.PM.IMCN ---
History of Present Illness Data of Consult Service Date: 09/08/24 Requesting physician: William Rajan Primary Care Provider: Flor Chandra MD [facility] Reason for consult: Aflutter, Aortic stenosis Patient is a 68-year-old male with past medical history HTN, a flutter, mild aortic stenosis, left knee osteoarthritis, gout, MRSA, TMJ, COPD/ emphysema, tubular adenoma, diverticulosis, internal hemorrhoids, varicose veins, tobacco dependence quit July 04, hepatitis-C treated with Harvoni is status post left total knee replacement with Dr. Rajan earlier today. Hospitalist consultation placed for patient's history of a flutter and aortic stenosis. Patient denies any current medical complaints. Reviewed with patient explanation for consultation and patient was not aware that he had aortic stenosis. Echocardiogram done June 2024 notes hyperdynamic left ventricular systolic function with an EF greater than 70%. In addition patient had evidence of mild aortic valve stenosis. Patient educated on this in the need to further follow with his director of public relations on an annual basis for evaluation. Patient currently with irregular heart rate, rate controlled and will resume his Eliquis on September 10 per Orthopedics. Patient we will continue his Cardizem and metoprolol as well. Hemodynamics currently stable. Patient recently had a Holter monitor and is followed closely by Cardiology. Patient does have chronic COPD and is on Trelegy daily. Patient does not have a rescue inhaler. Patient does not use nebulizer treatments at home. As above patient's practice smoking cessation since July 04 and completed the nicotine patch titration. Patient denies need for nicotine patch or nicotine gum at this time. Patient does not use oxygen at home as well. Patient also has history of gout with a recent flare and his plan is to follow with his PCP in the near future for repeat uric acid test and to see if he could benefit from allopurinol daily. Patient currently is free of any symptoms of gout flare. Review of Systems Review of Systems: Patient denies any current active medical problems not including his recovery from his left total knee replacement. Patient denies any chest pain, shortness of breath at rest or with exertion. Patient denies any nausea, vomiting or abdominal pain. Patient denies any lower extremity swelling. Patient denies any pain in his joints. Patient denies any problems with urination including burning or pain with urination or hesitancy. Yes all other systems are reviewed and are negative [facility] Medical History Cocaine abuse in remission History of cardioversion Arthritis COPD (chronic obstructive pulmonary disease) Atrial flutter N[place]EL (obstructive sleep apnea) SVT (supraventricular tachycardia) Chronic lung disease HCV (hepatitis C virus) MRSA (methicillin resistant Staphylococcus aureus) TMJ (dislocation of temporomandibular joint) Cognitive capacity: Alert and orientated x3 Functional capacity: independent ambulation (We will be using alternative ambulation secondary to left total knee replacement) Surgical History History of repair of ACL History of liver biopsy History of colonoscopy History of bronchoscopy History of right knee surgery Social History Household Members: Spouse Housing: House Are you a primary director day care center to a significant other at home: No Do you presently have visiting nurse or other home services: No Comment: medicated Patient Tobacco Use Status: Former Tobacco user Tobacco use type: Cigarette Cigarette Packs Per Day: 0.5 Cigarettes Per Day: 2 Years Smoked: 56 Smoked in Last 30 Days: Yes Patient Interested in Nicotine Replacement: Yes Second Hand Smoke Exposure: No Use of substances other than those prescribed or required for medical reasons: No Substance Use Type: Crack/Cocaine Currently Displaying Signs/Symptoms of Drug Intoxication Withdrawal: No Have you been hit, kicked, punched, or otherwise hurt by someone within the past year? If so, by whom?: No Do you feel safe in your current relationship?: No Current Relationship Is there a partner from a previous relationship who is making you feel unsafe now?: No Are you made to feel afraid or neglected: No Spiritual Healthcare Practices: no Buddhism Healthcare Practices: no Cultural Healthcare Practices: no Are you DNR?: No Advance Directives: No (brother is primary contact) Advance Directives Information Provided: Yes (as above noted) Advance Directives on File: No Do you have a plan to hurt others: No Plan Recently lost weight without trying: No Eating poorly because of decreased appetite: No Nutrition Risks: No Nutritional Risk Poor oral hygiene: No service: No Ebola Risk: Travel/Contact With Anyone From Affected Area/s: No Has Patient Experienced Ebola Symptoms: No Meds Allergies Allergy/AdvReac Type Severity Reaction Status Date / Time shellfish derived (shellfish) Allergy Severe Swelling Verified 09/08/24 09:16 (one occurrence-does eat shellfish now) Penicillins (PENICILLINS) Allergy Unknown Unknown-childhood Verified 09/08/24 09:16 allergy Active Medications: Current Medications Acetaminophen (Acetaminophen 325 Mg Tablet) 650 mg PO Q6H PRN PRN Reason: Pain, Mild 1-3,fever,headache Apixaban (Apixaban 5 Mg Tablet) 5 mg PO BID [facility] Celecoxib (Celecoxib 200 Mg Capsule) 200 mg PO BID [facility] Last Admin: 09/08/24 20:04 Dose: 200 mg Docusate Sodium (Docusate Sodium 100 Mg Capsule) 100 mg PO BID [facility] Last Admin: 09/08/24 20:04 Dose: 100 mg Enoxaparin Sodium (Enoxaparin Sodium 40 Mg/0.4 Ml Syringe) 40 mg SUBCUT Q24H ONE Stop: 09/09/24 12:01 Hydromorphone HCl (Hydromorphone Hcl 0.5 Mg/0.5 Ml Syringe) 0.25 mg IVPUSH Q4H PRN; Protocol PRN Reason: Pain, Severe (Pain Scale 7-10) Last Admin: 09/08/24 16:02 Dose: 0.25 mg Lactated Ringer's (Lr) 1,000 mls @ 100 mls/hr IVCONT .Q10H [facility] Stop: 09/09/24 08:00 Last Admin: 09/08/24 15:44 Dose: 100 mls/hr Metoprolol Succinate (Metoprolol Succinate Er 25 Mg Tab.Er.24h) 75 mg PO DAILY [facility]; Protocol Last Admin: 09/08/24 15:44 Dose: 75 mg Naloxone HCl (Naloxone Hcl 0.4 Mg/Ml Vial) 0.04 mg IVPUSH Q5M PRN PRN Reason: Excessive sedation or RR < 8 Ondansetron HCl (Ondansetron Hcl 4 Mg/2 Ml Vial) 4 mg IVPUSH Q8H PRN PRN Reason: Nausea and Vomiting Oxycodone HCl (Oxycodone Hcl Immed Release 5 Mg Tablet) 5 mg PO Q4H PRN PRN Reason: Pain, Moderate(Pain Scale 4-6) Oxycodone HCl (Oxycodone Hcl Er 10 Mg Tab.Er.12h) 10 mg PO BID [facility] Last Admin: 09/08/24 20:04 Dose: 10 mg Oxycodone HCl (Oxycodone Hcl Immed Release 5 Mg Tablet) 10 mg PO Q4H PRN PRN Reason: Pain, Severe (Pain Scale 7-10) Last Admin: 09/08/24 17:34 Dose: 10 mg Sodium Chloride (0.9 % Sodium Chloride Flush 3 Ml Syringe) 3 ml IVFLUSH QSHIFT [facility] Last Admin: 09/08/24 15:45 Dose: 3 ml Home Medications ?Medication ?Instructions ?Recorded ?Confirmed ?Last Taken ?Type fluticasone fur. 200 mcg-umeclid 1 inh inhalation QA 07/06/24 09/08/24 09/08/24 History 62.5 mcg-vilant 25 mcg inhalat.powder (Trelegy Ellipta) diltiazem HCl 120 mg 120 mg PO QA 08/10/24 09/08/24 09/08/24 History capsule,extended release 24 hr (Cardizem CD) Physical Exam Vital Signs and Narrative: Vital Signs: Last Vital Signs Temp 97.2 F 09/08/24 15:11 Pulse 65 09/08/24 17:38 Resp 16 09/08/24 17:38 BP 145/86 H 09/08/24 17:38 Pulse Ox 95 09/08/24 15:11 O2 Del Method Room Air 09/08/24 15:11 O2 Flow Rate 2 09/08/24 14:25 FiO2 44 09/08/24 14:40 BMI result Body Mass Index 21.5 Alert and orientated X3, able to give good history. Neuro: CN II-X11 intact, no deficits, visual acuity intact EYES: PERRLA, EOM intact, sclerae nonicteric ENT: hearing intact, no issues with swallowing, uvula midline, lips moist, nares patent no epistaxis Cardiac: S1 S2 irregular rate 65, no murmur, no JVD, no edema in Lower ext Pulmonary: lungs clear to auscultation B Abdominal: BS active in all 4 quadrants, no guarding, tenderness, rebounding MSK: strength 5/5 upper and R lower extremities, unable to assess strength in left lower extremity : no CVA tenderness no bladder distension Extremities: no edema in lower extremities, PT and DP pulses palpable +2 Psych: mood stable, judgement and insight good Skin: Other than surgical incision, intact Results Labs 09/08/24 09:18 Labs: Laboratory Results - last 24 hr 09/08/24 09:04 Urine Opiates Screen Not Detected Ur Buprenorphine Scrn Not Detected Ur Oxycodone Screen Not Detected Urine Methadone Screen Not Detected Urine Fentanyl Screen Not Detected Ur Barbiturates Screen Not Detected Ur Phencyclidine Scrn Not Detected Ur Amphetamines Screen Not Detected U Benzodiazepines Scrn Not Detected Urine Cocaine Screen Not Detected U Marijuana (THC) Screen Not Detected Imaging Radiologist's Impressions: Impressions Knee X-Ray 09/08/24 13:45 IMPRESSION: Status post left total knee arthroplasty. Electronically signed by: Dontrell Moran MD 09/08/2024 02:05 PM EDT RP Assessment and Plan (1) Atrial flutter: Qualifiers: Atrial flutter type: typical Qualified Code(s): I48.3 - Typical atrial flutter Status: Acute Plan Patient is a 68-year-old male with past medical history HTN, a flutter, mild aortic stenosis, left knee osteoarthritis, gout, MRSA, TMJ, COPD/ emphysema, tubular adenoma, diverticulosis, internal hemorrhoids, varicose veins, tobacco dependence quit July 04, hepatitis-C treated with Harvoni is status post left total knee revision with Dr. Rajan. Consultation requested through hospitalist group for a flutter and aortic stenosis. Patient does not offer any specific medical concerns at this time. A flutter Patient will resume his Eliquis on September 10 per Orthopedics Patient will continue his Cardizem and metoprolol Patient will continue to follow with Cardiology as an outpatient Rate is currently controlled Check MG in AM, if low pt can leave on MGOX 400 mg daily with repeat labs in 2 weeks with PCP Mild aortic stenosis Patient educated on aortic stenosis Patient will follow with Cardiology at least annually with repeat echo as needed Gout Patient has plan to see PCP for follow-up blood work to include uric acid level Patient may be started on allopurinol daily by his PCP Patient currently asymptomatic COPD/emphysema Patient should continue Trelegy Recommend that patient request rescue inhaler from his PCP once his insurance for prescription meds is available Patient is practicing smoking cessation at this time Tobacco cessation Patient completed the nicotine patch titration and does not require nicotine replacement therapy at this time Patient's goal is to continue smoking cessation upon discharge Hypertension Patient should continue metoprolol and Cardizem as ordered Low-salt diet History of hepatitis-C Patient completed treatment and since completion of treatment has not been at risk for kp hepatitis-C Education provided to patient on the risks associated with recurring hepatitis-C based on behaviors Patient follows with Dr. Caba in the outpatient setting Hospitalist will sign off. Education provided to patient regarding current medical issues and patient verbalized understanding.
[2024-09-09] VITALS (7 sets, daily range): BP systolic 106–162; BP diastolic 72–98; PULSE 95–126; RESP 18–20; TEMP 36.6–36.9; O2SAT 92–94
--- NOTE | 2024-09-09 | ECG_ITS ---
Test Reason : Aflutter Blood Pressure : */* mmHG Vent. Rate : 132 BPM Atrial Rate : 132 BPM P-R Int : 156 ms QRS Dur : 102 ms QT Int : 366 ms P-R-T Axes : * -64 136 degrees QTcB Int : 542 ms Atrial flutter Left anterior fascicular block Nonspecific ST and T wave abnormality Abnormal ECG When compared with ECG of 08-Jul-2024 20:12, No significant changes seen Referred By: Jordan Moeller Electronically Signed By: Scout Valdivia
--- NOTE | ~2024-09-09 | XR_ITS ---
EXAMINATION: XR KNEE 1-2 VIEWS LEFT HISTORY: LT TKA COMPARISON: Comparison is made with the prior examination dated 11/18/2023. FINDINGS: AP and lateral portable views of the left knee are submitted from the operating room at 1:47 PM. The patient is status post total knee arthroplasty. The orthopedic elements are in anatomic alignment. Postoperative changes are noted in the soft tissues. XR/XR knee LT 2V IMPRESSION: Status post left total knee arthroplasty. Electronically signed by: Dontrell Moran MD 09/08/2024 02:05 PM EDT
[2024-09-09] MEDS: Lactated Ringers 1,000 ML 100 ML IVCONT (01:55)
[2024-09-09 06:00] LABS: Hematocrit 37.6 % (42.0-52.0); Hemoglobin 12.5 g/dl (14.0-18.0); Imm Gran Abs Auto 0.06 X10*3/uL (0.00-0.03); Imm Gran Pct Auto 0.5 % (0.0-0.4); Lymphocytes Absolute Auto 1.9 X10*3/uL (1.2-4.9); MANUAL DIFF FLAG SCAN; Mean Corpuscular HGB Conc 33.2 g/dl (31.0-36.0); Mean Corpuscular Hemoglobin 29.4 pg (27.0-33.0); Mean Corpuscular Volume 88.5 fL (80.0-98.0); NRBC Abs Auto 0.000 X10*3/uL (0.0-0.012); NRBC Pct Auto 0.0 /100WBC (0.0-0.2); Platelet Count 280 X10*3/uL (160-400); Red Blood Count 4.25 X10*6/uL (4.60-5.80); SCAN SMEAR FLAG 1; White Blood Count 12.7 X10*3/uL (4.8-10.8)
[2024-09-09 06:10] LABS: Anion Gap 12 (12-20); Blood Urea Nitrogen 21 mg/dL (9-16); Calcium 8.6 mg/dL (8.4-10.2); Carbon Dioxide 25 mmol/L (22-29); Chloride 102 mmol/L (96-108); Creatinine Clr Calc Pharmacy 67.2; Estimated Glomerular Filt Rate > 60; Magnesium 1.7 mg/dL (1.6-2.6); Potassium 4.7 mmol/L (3.3-5.1); Sodium 134 mmol/L (135-145)
[2024-09-09] MEDS: oxyCODONE HCl Immed Release 5 MG TABLET 10 MG PO ×3 (07:21→14:55)
[2024-09-09] MEDS: Metoprolol Succinate ER 25 MG TAB.ER.24H 75 MG PO (07:21)
[2024-09-09] MEDS: oxyCODONE HCl ER 10 MG TAB.ER.12H PO ×2 (07:21→21:31)
--- NOTE | 2024-09-09 07:42 | PM.PNORT ---
Subjective Subjective Date of Service: 09/09/24 Interval history: POD1 s/p LTKA Patient is resting in bed comfortably No overnight events Pain has been difficult to manage overnight No additional complaints Physical Exam Vital Signs: Vital Signs: Last Vital Signs Temp 98 F 09/09/24 04:00 Pulse 102 H 09/09/24 04:00 Resp 20 09/09/24 04:00 BP 140/82 H 09/09/24 04:00 Pulse Ox 92 09/09/24 04:00 O2 Del Method Room Air 09/09/24 04:00 O2 Flow Rate 2 09/08/24 14:25 FiO2 44 09/08/24 14:40 BMI result Body Mass Index 21.5 Const: General: cooperative, healthy appearing and no acute distress Resp: Effort & Inspection: normal respiratory effort and able to speak in complete sentences Cardio: Rate: regular rate Peripheral pulses: Peripheral pulses 2+ throughout GI: Palpation (GI): Soft to palpation Skin: Lesions: no lesions Rashes: no rashes Extrem: Other: left knee dressing is c/d/i. Able to dorsi/plantar flex. Calf is supple and nontender. Sensation intact. Pedal pulse intact. Procedures Date of Service Date of Service: 09/09/24 Progress Note: A&P Assessment and plan (1) Status post total left knee replacement: Status: Acute Plan Continue pain mgmnt Begin Lovenox for dvt ppx - Resume Eliquis at regular dosing beginning tomorrow begin PT for LTKA Dispo planning-Pending PT eval, pain mgmnt Time Spent With Patient Time: Total time managing care of this patient today ____ minutes. Quality Stroke Does the patient have a stroke diagnosis?: No VTE Prior VTE?: Yes VTE Risk Level:: Medical - moderate - high VTE Device Contraindication: N/A - Device Ordered VTE Drug Contraindication: N/A - Med Ordered
--- NOTE | 2024-09-09 08:54 | HO.POSTANES ---
Post Anesthesia Evaluation Post Anesthesia Evaluation Date of Service: 09/08/24 Vital Signs: Vital Signs Temp Pulse Resp BP Pulse Ox O2 Del Method 09/09/24 07:56 126 H 162/96 H 93 09/09/24 07:48 98.5 F 126 H 18 162/96 H 93 Room Air 09/09/24 04:00 98 F 102 H 20 140/82 H 92 Room Air 09/08/24 23:56 98 F 73 16 160/78 H 96 Room Air Anesthesia: Nerve Block and General Mental Status: Awake Pain Control: Satisfactory Nausea/Vomiting: None Hydration: Adequate Anesthesia-Related Issues: No Anes. Related Issues
[2024-09-09] MEDS: dilTIAZem HCL CD 120 MG CAP.ER.DEG PO (10:19)
[2024-09-09] MEDS: Lactated Ringers 1,000 ML 150 ML IVCONT ×2 (14:32→21:30)
--- NOTE | 2024-09-09 14:32 | PC.NURSE ---
Addendum entered by Makenna Morel RN 09/09/24 17:01: HR 80's-100's. Ambulated to BR and HR went up to 128 with sob, but returned to 80's. Original Note: HR 130's. Denies chest pain. Dr Moeller notified. Placed on telemonitor and EKG done. EKG sinus tach, but AFlutter on tele. Cardizem po ordered and given. HR decreased to 80's-100's briefly but returned to 110's-130's. Pt also having poor pain control even after receiving scheduled and prn meds. Dilaudid dose increased per orthopedics with better relief per pt, 03/30. Dr. Moeller ordered IV fluids at 150/hr and IV metoprolol 5mg. HR 90's-110's.
--- NOTE | 2024-09-09 15:16 | MHC.CM.PN ---
pt lives with is indepedent will go home with vna for home pt pt has a ride
--- NOTE | 2024-09-09 15:20 | HO.PM.IMPN ---
Subjective Subjective Date of Service: 09/09/24 Interval History: Heart rate poorly control overnight; EKG with sinus tachycardia. Remains asymptomatic Review of Systems Denies chest pain Denies shortness of breath Denies nausea vomiting diarrhea Denies fever chills Physical Exam Vital Signs: Vital Signs: Last Vital Signs Temp 98.4 F 09/09/24 12:00 Pulse 125 H 09/09/24 12:00 Resp 18 09/09/24 12:00 BP 146/98 H 09/09/24 12:00 Pulse Ox 94 09/09/24 12:00 O2 Del Method Room Air 09/09/24 12:00 O2 Flow Rate 2 09/08/24 14:25 FiO2 44 09/08/24 14:40 BMI result Body Mass Index 21.5 Const: Other: Awake alert no acute distress Resp: Other: Clear to auscultation bilaterally no rales rhonchi or wheezes Cardio: Other: No S4; positive S1-S2; no S3 murmurs rubs or gallops GI: Other: Soft nontender nondistended normoactive bowel sounds Extrem: Other: No edema bilaterally Objective Data Active Medications Acetaminophen (Acetaminophen 325 Mg Tablet) 650 mg PO Q6H PRN PRN Reason: Pain, Mild 1-3,fever,headache Last Admin: 09/09/24 14:55 Dose: 650 mg Documented By: LIZ Apixaban (Apixaban 5 Mg Tablet) 5 mg PO BID [facility] Calcium Carbonate (Calcium Carbonate 750 Mg Tab.Chew) 750 mg PO Q6H PRN PRN Reason: Heartburn Last Admin: 09/09/24 11:01 Dose: 750 mg Documented By: LIZ Celecoxib (Celecoxib 200 Mg Capsule) 200 mg PO BID [facility] Last Admin: 09/09/24 07:21 Dose: 200 mg Documented By: LIZ Diltiazem HCl (Diltiazem Hcl Cd 120 Mg Cap.Er.Deg) 120 mg PO DAILY [facility]; Protocol Last Admin: 09/09/24 10:19 Dose: 120 mg Documented By: VINH Docusate Sodium (Docusate Sodium 100 Mg Capsule) 100 mg PO BID [facility] Last Admin: 09/09/24 07:21 Dose: 100 mg Documented By: LIZ Fluticasone/Umeclidinium/Vilanterol (Fluticasone/Umeclidinium/Vilanterol 200/62.5/ Blst.W.Dev) 1 puff INHALE RDAILY [facility] Last Admin: 09/09/24 10:13 Dose: Not Given Documented By: STEVEN Non-Admin Reason: Not In Room Hydromorphone HCl (Hydromorphone Hcl 0.5 Mg/0.5 Ml Syringe) 0.5 mg IVPUSH Q4H PRN; Protocol PRN Reason: Pain, Severe (Pain Scale 7-10) Lactated Ringer's (Lr) 1,000 mls @ 150 mls/hr IVCONT .Q6H40M [facility] Last Admin: 09/09/24 14:32 Dose: 150 mls/hr Documented By: LIZ Metoprolol Succinate (Metoprolol Succinate Er 25 Mg Tab.Er.24h) 75 mg PO DAILY [facility]; Protocol Last Admin: 09/09/24 07:21 Dose: 75 mg Documented By: LIZ Naloxone HCl (Naloxone Hcl 0.4 Mg/Ml Vial) 0.04 mg IVPUSH Q5M PRN PRN Reason: Excessive sedation or RR < 8 Ondansetron HCl (Ondansetron Hcl 4 Mg/2 Ml Vial) 4 mg IVPUSH Q8H PRN PRN Reason: Nausea and Vomiting Oxycodone HCl (Oxycodone Hcl Immed Release 5 Mg Tablet) 5 mg PO Q4H PRN PRN Reason: Pain, Moderate(Pain Scale 4-6) Oxycodone HCl (Oxycodone Hcl Er 10 Mg Tab.Er.12h) 10 mg PO BID [facility] Last Admin: 09/09/24 07:21 Dose: 10 mg Documented By: LIZ Oxycodone HCl (Oxycodone Hcl Immed Release 5 Mg Tablet) 10 mg PO Q4H PRN PRN Reason: Pain, Severe (Pain Scale 7-10) Last Admin: 09/09/24 14:55 Dose: 10 mg Documented By: LIZ Sodium Chloride (0.9 % Sodium Chloride Flush 3 Ml Syringe) 3 ml IVFLUSH QSHIFT [facility] Last Admin: 09/09/24 14:38 Dose: Not Given Documented By: LIZ Non-Admin Reason: IV Running Labs 09/09/24 05:26 09/09/24 05:26 Labs: Laboratory Results - last 24 hr 09/09/24 05:26 MCV 88.5 MCH 29.4 MCHC 33.2 RDW 13.9 Plt Count 280 MPV 9.1 L Immature Gran % (Auto) 0.5 H Neut % (Auto) 70.3 Lymph % (Auto) 15.3 L [place] % (Auto) 13.3 H Eos % (Auto) 0.3 Baso % (Auto) 0.3 Lymph # (Auto) 1.9 [place] # (Auto) 1.7 H Eos # (Auto) 0.0 Baso # (Auto) 0.0 Abs Immat Gran (auto) 0.06 H Absolute Neuts (auto) 8.9 H Absolute Nucleated RBC 0.000 Nucleated RBC % (auto) 0.0 Smear Tech's Comments VERIFIED Anion Gap 12 Estim Creat Clear Calc 67.2 Estimated GFR > 60 Fasting Glucose 145 H Calcium 8.6 Magnesium 1.7 Assessment and Plan (1) Atrial flutter: Status: Acute (2) Aortic stenosis: Status: Acute Plan Patient is a 68-year-old male with past medical history HTN, a flutter, mild aortic stenosis, left knee osteoarthritis, gout, MRSA, TMJ, COPD/ emphysema, tubular adenoma, diverticulosis, internal hemorrhoids, varicose veins, tobacco dependence quit July 04, hepatitis-C treated with Harvoni is status post left total knee revision with Dr. Rajan. Consultation requested through hospitalist group for a flutter and aortic stenosis. 1. History of a flutter (sinus tachycardia today -resume Eliquis 09/10/24 as per Orthopedics -Cardizem and metoprolol; 1 dose of IV metoprolol given this a.m. -lactated Ringer's at 150 an hour x1 L and re-evaluate -continue to monitor on telemetry 2. Aortic stenosis (mild by echo) -stable and well compensated 3.COPD -no acute issues less far this admission -continue outpatient therapies -adjust as indicated 4.HTN -acceptable control on current therapies -adjust as indicated Will follow Quality Stroke Does the patient have a stroke diagnosis?: No VTE Prior VTE?: Yes VTE Risk Level:: Medical - moderate - high VTE Device Contraindication: N/A - Device Ordered VTE Drug Contraindication: N/A - Med Ordered
[2024-09-10] MEDS: oxyCODONE HCl Immed Release 5 MG TABLET 10 MG PO (01:59)
[2024-09-10] MEDS: Lactated Ringers 1,000 ML 150 ML IVCONT ×2 (03:31)
[2024-09-10 03:37] VITALS: BP 109/77; PULSE 88; RESP 18; TEMP 36.3; O2SAT 96
[2024-09-10 06:25] LABS: Hematocrit 34.9 % (42.0-52.0); Hemoglobin 11.5 g/dl (14.0-18.0); Imm Gran Abs Auto 0.08 X10*3/uL (0.00-0.03); Imm Gran Pct Auto 0.7 % (0.0-0.4); Lymphocytes Absolute Auto 2.8 X10*3/uL (1.2-4.9); MANUAL DIFF FLAG SCAN; Mean Corpuscular HGB Conc 33.0 g/dl (31.0-36.0); Mean Corpuscular Hemoglobin 29.4 pg (27.0-33.0); Mean Corpuscular Volume 89.3 fL (80.0-98.0); NRBC Abs Auto 0.000 X10*3/uL (0.0-0.012); NRBC Pct Auto 0.0 /100WBC (0.0-0.2); Platelet Count 248 X10*3/uL (160-400); Red Blood Count 3.91 X10*6/uL (4.60-5.80); SCAN SMEAR FLAG 1; White Blood Count 12.3 X10*3/uL (4.8-10.8)
[2024-09-10 06:40] LABS: Anion Gap 12 (12-20); Blood Urea Nitrogen 25 mg/dL (9-16); Calcium 9.1 mg/dL (8.4-10.2); Carbon Dioxide 28 mmol/L (22-29); Chloride 103 mmol/L (96-108); Creatinine Clr Calc Pharmacy 57.3; Estimated Glomerular Filt Rate 52; Potassium 4.6 mmol/L (3.3-5.1); Sodium 138 mmol/L (135-145)
[2024-09-10 07:30] VITALS: BP 109/78; PULSE 88; RESP 18; TEMP 37.1; O2SAT 93
[2024-09-10] MEDS: Fluticasone/Umeclidinium/Vilanterol 200/62.5/25 BLST.W.DEV 1 PUFF INHALE (07:49)
[2024-09-10] MEDS: Metoprolol Succinate ER 25 MG TAB.ER.24H 75 MG PO (08:32)
[2024-09-10] MEDS: oxyCODONE HCl ER 10 MG TAB.ER.12H PO (08:32)
[2024-09-10] MEDS: dilTIAZem HCL CD 120 MG CAP.ER.DEG PO (08:32)
--- NOTE | 2024-09-10 09:18 | MHC.CM.PN ---
Patient medically cleared for dc home w/ new [facility] for home PT. at bedside to provide transport. RN aware.
[2024-09-10] MEDS: oxyCODONE HCl Immed Release 5 MG TABLET PO (09:23)
--- NOTE | 2024-09-11 09:38 | P.OP_ITS ---
Operative Note Operative Note Date of Service: 09/11/24 Narrative: Date of Service: 09/08/24 Pre-op diagnosis: left knee OA Post-op diagnosis: same Procedure: left TKA Implants: [place] [employer] posterior stabilized 4/5/10ps/32a cemented Surgeon: William Rajan MD Anesthesia: GETA Was an Real Property Evaluator used for this Procedure?: Yes Real Property Evaluator: Uyen Tate Estimated blood loss (mL): 25 Tourniquet time (min): 70 IV fluids (mL): 1,000 Pathology: other Condition: stable Disposition: PACU Procedure in detail: The patient was brought to the operating room and prepped and draped in standard sterile fashion. A time-out was called to identify proper site proper procedure proper surgeon and IV antibiotics were administered. 1 g of IV tranexamic acid was administered. I began by making a midline incision to the retinaculum and performed a medial parapatellar arthrotomy. The patella was translated laterally and the knee was flexed up. There was medial compartment G1V arthritis I performed a small medial peel and resected the infrapatellar fat pad. Katie's line was then used to drill my intramedullary femoral guide and my distal femur cut of 10 mm was made in 5 degrees of valgus while protecting the soft tissues. I then measured a # 4 femur and placed my cutting guide and made my anterior posterior and chamfer cuts protecting the soft tissues at all times. I then made my box but removing the PCL. Once I was satisfied with my cuts I turned my attention to the tibia. I removed the meniscus medially and laterally and , using an external cutting guide, in line with the tibial crest and the third ray, I made my distal tibial cut in 0 deg slope of while protecting the posterior soft tissues at all times. An extension block was used to confirm appropriate amount of bony resection. I then sized a #5 tibia and once I was satisfied that there was complete tibial coverage I placed my trial and with the trial femur in place took the knee through range of motion. I was satisfied with the extension and flexion as well as the balance at 0, 30 and 90 degrees. I then turned my attention to the patella where I removed 1 cm from the undersurface of the patella and then trialed a 32a patellar button. Again the knee was taken through range of motion I was satisfied with the tracking. I then prepared the tibia with a drill and punch. A femoral bone plug was placed and the knee was irrigated copiously. I then cemented the patella, tibia and femur in standard fashion. Axial compression and a clamp were used while the cement dried. Once the cement was hard on the back table all excess cement was removed and I trialed different inserts until I selected a #10ps insert. The final insert was placed and local TXA was administered. The knee was then closed with a running Quill suture, a 3 0 Vicryl and marycruz on the skin. Patient was then placed in sterile dressing and brought to recovery room in stable condition there were no known complications.
== END 2024-09-10 09:45 | disposition home health service (06) | DRG 470 ==
LOC: HO.SSS 09-10 10:04 → HO.S3 09-10 10:04
PROVIDERS: Nurse Practitioner; Nurse Practitioner Family; Physician Assistant; Admitting Provider Orthopaedic Surgery; PCP Internal Medicine; Visit Provider Orthopaedic Surgery
PROC: (CPT 27447; principal; 2024-09-08 11:50)
DX: M17.12 Unilateral primary osteoarthritis, left knee (principal); I48.92 Unspecified atrial flutter; I48.3 Typical atrial flutter; G89.18 Other acute postprocedural pain; I10 Essential (primary) hypertension; I35.0 Nonrheumatic aortic (valve) stenosis; J43.9 Emphysema, unspecified; M10.9 Gout, unspecified; Z86.19 Personal history of other infectious and parasitic diseases; Z86.14 Personal history of Methicillin resistant Staphylococcus aureus infection; Z87.891 Personal history of nicotine dependence; Z79.01 Long term (current) use of anticoagulants; Z79.899 Other long term (current) drug therapy
CPT/HCPCS: 36415; 73560; 80048; 80307; 83735; 85014; 85018; 85025; 86850; 86900; 86901; 87640; 87641; 88305; 88311; 93005; 97110; 97116; 97162; C1713; C1776; J0131; J0616; J0690; J1171; J1650; J2250; J2405; J2704; J2795; J7120

== ENCOUNTER → 2024-09-09 09:52 | Outpatient (BNV) | payer MEDICARE, SELFPAY | PROVIDERS: PCP Internal Medicine; Visit Provider Internal Medicine Cardiovascular Disease | DX: I48.91 Unspecified atrial fibrillation (principal); I44.7 Left bundle-branch block, unspecified | CPT/HCPCS: 93010 ==

== ENCOUNTER 2024-09-24 14:36 | Outpatient (AMB) | payer MEDICARE, SELFPAY ==
--- OUTSIDE RECORDS SUMMARY | 2024-09-24 14:39 | XMS_ITS | Clinical Summary ---
Author Organization [facility] Address [address] [place] [address] Phone Care Team Providers Care Plum Packer Name Role Phone Flor Chandra MD Primary [...] this topic Insurance [employer] Care Teams Plum Packer Relationship Specialty Start Date End Date Flor Chandra MD [address] [place] [address] PCP - General 02/29/20
--- NOTE | 2024-09-24 14:45 | A.OFFVIS_ITS ---
Intake Visit Reasons: 2WKPO: L TKA w/NE 09/08/24 Intake Note: Linus is a 68 year old female who presents today for a post operative visit after undergoing a left total knee arthroplasty on 09/08/24, performed by Dr. Rajan. Patient reports he is doing well, states pain has been tolerable. He will be attending outpatient therapy on Saturday of next week. Allergies shellfish derived (shellfish) Allergy (Severe, Verified 09/24/24 14:52) Swelling (one occurrence-does eat shellfish now) Penicillins (PENICILLINS) Allergy (Unknown, Verified 09/24/24 14:52) Unknown-childhood allergy Medication List - Last Reconciled 09/24/24 by Uyen Tate PA-C acetaminophen 650 mg (2 x 325 mg) PO Q6H PRN 30 days apixaban (Eliquis) 5 mg PO BID 30 days Held on 09/11/24. Instructions: Resume on 09/10/24. cane As directed celecoxib 200 mg PO BID 30 days diltiazem HCl CD (Cardizem CD) 120 mg See Protocol PO QAM docusate sodium 100 mg PO BID 7 days yinvttqedby-wzyfnfrtp-lfjewdjb 200-62.5-25 mcg (Trelegy Ellipta) 1 inh inhalation QAM metoprolol succinate ER (Toprol XL) 75 mg (1.5 x 50 mg) PO QAM 90 days oxycodone 10 mg PO Q4H PRN 7 days walker Folding Front wheeled walker duration 99 days walker Folding Front wheeled walker duration 99 days HPI HPI 2WKPO: L TKA w/NE 09/08/24: Details: State year old gentleman returns to the office today 2 weeks status post left total knee arthroplasty on 09/08/[address] Rajan. He is doing well with PT. he is using a cane to ambulate. [facility] Medical History Cocaine abuse in remission History of cardioversion Arthritis COPD (chronic obstructive pulmonary disease) Atrial flutter NATANAEL (obstructive sleep apnea) SVT (supraventricular tachycardia) Chronic lung disease HCV (hepatitis C virus) MRSA (methicillin resistant Staphylococcus aureus) TMJ (dislocation of temporomandibular joint) Surgical History History of repair of ACL History of liver biopsy History of colonoscopy History of bronchoscopy History of right knee surgery Social History Household Members: Spouse Housing: House Are you a primary child care center assistant director to a significant other at home: No Do you presently have visiting nurse or other home services: No Comment: medicated Patient Tobacco Use Status: Former Tobacco user Tobacco use type: Cigarette Cigarette Packs Per Day: 0.5 Cigarettes Per Day: 2 Years Smoked: 56 Second Hand Smoke Exposure: No Substance Use Type: Crack/Cocaine service: No Review of Systems Const All systems reviewed & are unremarkable except as noted in HPI and below Physical Exam Extrem Other: Left knee incision is clean dry and intact. He has full extension and can flex to 100 degrees. Calf supple and nontender neurovascularly intact. Assessment & Plan Assessment & Plan (1) Status post total left knee replacement: Code(s): Z96.652 - Presence of left artificial knee joint Category: Surgical Plan: [place] removed today Steri-Strips applied. He will continue to work with physical therapy and is transitioning to outpatient physical therapy. He will continue with his anticoagulant therapy for another 4 weeks. He will see us back in [address] Rajan sooner if needed. Coding Level of Care Code Global (19319) Diagnoses Status post total left knee replacement Z96.652
== END 2024-09-24 15:19 | disposition home or self-care (01) ==
LOC: HO.HOS 14:36
PROVIDERS: PCP Internal Medicine; Visit Provider Physician Assistant
DX: Z96.652 Presence of left artificial knee joint (principal)
CPT/HCPCS: 99024

== ENCOUNTER → 2024-09-24 14:36 | Outpatient (BNVA) | payer MEDICARE, SELFPAY | PROVIDERS: PCP Internal Medicine; Visit Provider Physician Assistant | DX: Z47.1 Aftercare following joint replacement surgery (principal); Z96.652 Presence of left artificial knee joint | CPT/HCPCS: 99212 ==

== ENCOUNTER 2024-10-15 08:07 | Outpatient (REF) | payer MEDICARE, BC, SELFPAY ==
--- NOTE | ~2024-10-15 | XR_ITS ---
EXAMINATION: XR KNEE 3 VIEWS LEFT HISTORY: M25.562 - Pain in left knee COMPARISON: Comparison is made with the prior examination dated 09/08/2024. FINDINGS: Standing AP views of both knees and additional lateral and sunrise patellar views of the left knee are submitted. The patient is again noted to be status post left total knee arthroplasty. The orthopedic elements are in anatomic alignment. There is no radiographic evidence of loosening. There is no fracture or dislocation. There is a moderate joint effusion. XR/XR knee LT 3V IMPRESSION: Status post left total knee arthroplasty. Moderate joint effusion. Electronically signed by: Dontrell Moran MD 10/15/2024 09:29 AM EDT
== END 2024-10-15 08:08 | disposition home or self-care (01) ==
LOC: HO.HOSX 08:07
PROVIDERS: Visit Provider Orthopaedic Surgery
DX: Z47.1 Aftercare following joint replacement surgery (principal); Z96.652 Presence of left artificial knee joint; M25.562 Pain in left knee
CPT/HCPCS: 73562; 99212

== ENCOUNTER 2024-10-15 09:09 | Outpatient (AMB) | payer MEDICARE, SELFPAY ==
--- NOTE | 2024-10-15 09:16 | A.OFFVIS_ITS ---
Intake Visit Reasons: 6WKPO: L TKA w/NE 09/08/24 Intake Note: Linus is a 68 year old female who presents today for a post operative visit about 5 weeks s/p left total knee arthroplasty on 09/08/24. Patient reports that he is doing well, he has some mild pain after therapy but overall is doing well with no concerns at this time. Allergies shellfish derived (shellfish) Allergy (Severe, Verified 10/15/24 09:23) Swelling (one occurrence-does eat shellfish now) Penicillins (PENICILLINS) Allergy (Unknown, Verified 10/15/24 09:23) Unknown-childhood allergy HPI HPI 6WKPO: L TKA w/NE 09/08/24: Details: Linus is a 68 year old female who presents today for a post operative visit about 5 weeks s/p left total knee arthroplasty on 09/08/24. Patient reports that he is doing well, he has some mild pain after therapy but overall is doing well with no concerns at this time. COUNTS INCLUDE 234 BEDS AT THE [facility] Medical History Cocaine abuse in remission History of cardioversion Arthritis COPD (chronic obstructive pulmonary disease) Atrial flutter NATANAEL (obstructive sleep apnea) SVT (supraventricular tachycardia) Chronic lung disease HCV (hepatitis C virus) MRSA (methicillin resistant Staphylococcus aureus) TMJ (dislocation of temporomandibular joint) Surgical History History of repair of ACL History of liver biopsy History of colonoscopy History of bronchoscopy History of right knee surgery Social History Household Members: Spouse Housing: House Are you a primary rn palliative care to a significant other at home: No Do you presently have visiting nurse or other home services: No Comment: medicated Patient Tobacco Use Status: Former Tobacco user Tobacco use type: Cigarette Cigarette Packs Per Day: 0.5 Cigarettes Per Day: 2 Years Smoked: 56 Second Hand Smoke Exposure: No Substance Use Type: Crack/Cocaine service: No Assessment & Plan Assessment & Plan Orders: Orders XR knee LT 3V Today M25.562 - Pain in left knee Coding
--- NOTE | 2024-10-15 09:45 | MHC.OFFVIS ---
Intake Visit Reasons: 6WKPO: L TKA w/NE 09/08/24 Allergies shellfish derived (shellfish) Allergy (Severe, Verified 10/15/24 09:23) Swelling (one occurrence-does eat shellfish now) Penicillins (PENICILLINS) Allergy (Unknown, Verified 10/15/24 09:23) Unknown-childhood allergy HPI HPI 6WKPO: L TKA w/NE 09/08/24: Details: Linus is doing well 6 weeks status post left knee replacement. He is on Eliquis as he was preoperatively. He has no complaints. [facility] Medical History Cocaine abuse in remission History of cardioversion Arthritis COPD (chronic obstructive pulmonary disease) Atrial flutter NATANAEL (obstructive sleep apnea) SVT (supraventricular tachycardia) Chronic lung disease HCV (hepatitis C virus) MRSA (methicillin resistant Staphylococcus aureus) TMJ (dislocation of temporomandibular joint) Surgical History History of repair of ACL History of liver biopsy History of colonoscopy History of bronchoscopy History of right knee surgery Social History Household Members: Spouse Housing: House Are you a primary day care home provider to a significant other at home: No Do you presently have visiting nurse or other home services: No Comment: medicated Patient Tobacco Use Status: Former Tobacco user Tobacco use type: Cigarette Cigarette Packs Per Day: 0.5 Cigarettes Per Day: 2 Years Smoked: 56 Second Hand Smoke Exposure: No Substance Use Type: Crack/Cocaine service: No Physical Exam Extrem Other: Incision clean dry and intact. 0-120 degrees of motion Stable to varus and valgus stress Results Reviewed Results Reviewed: I personally reviewed relevant radiographs. Left total knee arthroplasty in expected post operative position with no hardware complications or evidence of loosening Assessment & Plan Assessment & Plan (1) Status post total left knee replacement: Code(s): Z96.652 - Presence of left artificial knee joint Category: Surgical Plan: Doing very well status post knee replacement. Continue strengthening and cdbzj-dw-ylbzuc exercises. Follow up 6 weeks. Orders: Orders XR knee LT 3V Today M25.562 - Pain in left knee Coding Level of Care Code Global (29073) Diagnoses Status post total left knee replacement Z96.652
--- OUTSIDE RECORDS SUMMARY | 2024-10-15 10:07 | XMS_ITS | Clinical Summary ---
Author Organization [facility] Address [address] [place] [address] Phone Care Team Providers Care Supervisor Frame Assembly Name Role Phone Flor Chandra MD Primary [...] this topic Insurance [employer] Care Teams Supervisor Frame Assembly Relationship Specialty Start Date End Date Flor Chandra MD [address] [place] [address] PCP - General 02/29/20
== END 2024-10-15 09:30 | disposition home or self-care (01) ==
LOC: HO.HOS 09:09
PROVIDERS: PCP Internal Medicine; Visit Provider Orthopaedic Surgery
DX: Z96.652 Presence of left artificial knee joint (principal)
CPT/HCPCS: 99024

== ENCOUNTER → 2024-10-15 09:14 | Outpatient (BNV) | payer MEDICARE, BC, SELFPAY | PROVIDERS: Visit Provider Radiology Diagnostic Radiology | DX: M25.462 Effusion, left knee (principal); Z96.652 Presence of left artificial knee joint | CPT/HCPCS: 73562 ==

== ENCOUNTER 2024-11-26 09:35 | Outpatient (AMB) | payer MEDICARE, BC, SELFPAY ==
--- NOTE | 2024-11-26 09:42 | MHC.OFFVIS ---
Intake Visit Reasons: PO-L TKA w/NE 09/08/24 Intake Note: Linus is a 68 year old male who presents today for a post operative appointment about 11 weeks s/p Left TKA 09/08/24. He continues to work with [facility]. Patient reports that he is doing well overall, he has transitioned to doing physical therapy only once a week and has had some increased soreness with PT since it is less frequent. 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 Allergies shellfish derived (shellfish) Allergy (Severe, Verified 11/26/24 09:46) Swelling (one occurrence-does eat shellfish now) Penicillins (PENICILLINS) Allergy (Unknown, Verified 11/26/24 09:46) Unknown-childhood allergy HPI HPI PO-L TKA w/NE 09/08/24: Details: Linus is a 68 year old male who presents today for a post operative appointment about 11 weeks s/p Left TKA 09/08/24. He continues to work with [facility]. Patient reports that he is doing well overall, he has transitioned to doing physical therapy only once a week and has had some increased soreness with PT since it is less frequent. 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 [facility] Medical History (Updated 10/22/24 @ 14:52 by Serina Burgos PA-C) Nicotine dependence, cigarettes, uncomplicated Aortic stenosis Atrial flutter Cocaine abuse in remission History of cardioversion Arthritis COPD (chronic obstructive pulmonary disease) Atrial flutter NATANAEL (obstructive sleep apnea) SVT (supraventricular tachycardia) Chronic lung disease HCV (hepatitis C virus) MRSA (methicillin resistant Staphylococcus aureus) TMJ (dislocation of temporomandibular joint) Surgical History History of repair of ACL History of liver biopsy History of colonoscopy History of bronchoscopy History of right knee surgery Social History Household Members: Spouse Housing: House Are you a primary acute care nurse practitioner to a significant other at home: No Do you presently have visiting nurse or other home services: No Comment: medicated Patient Tobacco Use Status: Former Tobacco user Tobacco use type: Cigarette Cigarette Packs Per Day: 0.5 Cigarettes Per Day: 2 Years Smoked: 56 Second Hand Smoke Exposure: No Substance Use Type: Crack/Cocaine service: No Physical Exam Extrem Other: inc c/d/i 0-130 stable arc of motion Assessment & Plan Assessment & Plan (1) Status post total left knee replacement: Code(s): Z96.652 - Presence of left artificial knee joint Category: Surgical Plan: 3 mo post op doing well. May return to work 12/07. Dental prophylaxis discussed. Coding Level of Care Code Global (18283) Diagnoses Status post total left knee replacement Z96.652
== END 2024-11-26 10:03 | disposition home or self-care (01) ==
LOC: HO.HOS 09:35
PROVIDERS: Visit Provider Orthopaedic Surgery
DX: Z96.652 Presence of left artificial knee joint (principal)
CPT/HCPCS: 99024

== ENCOUNTER → 2024-11-26 09:35 | Outpatient (BNVA) | payer MEDICARE, SELFPAY | PROVIDERS: Visit Provider Orthopaedic Surgery | DX: Z47.1 Aftercare following joint replacement surgery (principal); Z96.652 Presence of left artificial knee joint | CPT/HCPCS: 99212 ==

== ENCOUNTER 2024-12-01 08:00 | Outpatient (RCR) | payer MEDICARE, BC, SELFPAY ==
--- NOTE | 2024-09-29 08:47 | MHC.PT.EP ---
[facility] [place] Office [place] Office [place] Office [address] Jermaine Garrido [address] [phone] F: [phone] F: [phone] F: [phone] F: [phone] Physical Therapy Plan of Care Date of Evaluation: 09/29/24 Date of Surgery: 09/08/2024 Diagnosis: s/p L TKA 09/08/2024 Assessment: Patient is a 68 year old male presenting to PT s/p L TKA 09/08/2024. He presents today with impairments in pain, knee ROM, knee strength, hip strength. 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 Pt expresses mcc goal of returning to PLOF, and is motivated to work towards this in PT. Clinical presentation today is most consistent with signs and sx associated with s/p L TKA 09/08/2024 and pt will benefit from skilled PT 2 week x 4 weeks to address the following problems and impairments noted upon evaluation: pain, knee ROM, knee strength, hip strength. These problems limit the patient with the following functional activities: ambulating, stair negotiation, ADLs, work. The prescribed treatment plan of care is medically necessary. Co-morbidities of atrial flutter, SVT, hepatitis C, afib on blood thinners were identified and taken into considerations of plan of care. Pt was educated on HEP, role of PT, prognosis, POC. Frequency and Duration: The patient will be seen 2 x week x 4 weeks Short Term Goals: Pt will demonstrate improved L knee ROM from 0 to 120 in 2 weeks. Pt will demonstrate 5/5 L knee MMT strength in 2 weeks. Pt will demonstrate improved hip MMT strength by 1/3 grade in 2 weeks. Longterm Goals: Pt will demonstrate improved LEFI score by 9 points in 4 weeks for improved functional mobility. Pt will demonstrate ability to ambulate with normal mechanics in 4 weeks for improved access to the community. Pt will demonstrate ability to negotiate stairs with min to no pain and step over step pattern in 4 weeks for improved access to the community and his home. Treatment Plan: Modalities to reduce pain, spasms and effusion. Manual therapy to restore motion and function. Therapeutic exercise to improve strength and flexibility. Neuromuscular re-education for posture and balance. Therapeutic activities to return to functional activities of daily living. Electronically signed by: Maryse Sepulveda PT, DPT, ATC Please sign and return to therapist. Thank you for your referral.
--- NOTE | 2024-12-01 08:50 | MHC.PT.DC ---
[facility] [place] Office [place] Office [place] Office [address] Jermaine Garrido [address] [phone] F: [phone] F: [phone] F: [phone] F: [phone] Physical Therapy Discharge Report Diagnosis: s/p L TKA 09/08/2024 Date of Surgery: 09/08/2024 Date of Evaluation: 09/29/24 Date of Discharge: 12/01/24 Treatments to Date: 15 Cancellations to Date: 1 No Shows to Date: 0 Discharge Status: Achieved Goals Improved Function Independent with HEP Discharge Summary: 12/01/2024: Overall he has made good progress since start of care. His gait is improved in terms of his knee although today he seems to demonstrate some antalgia as a result of new medial foot pain which seems unrelated to his knee. He has met or made good progress towards all of his goals for his knee. I expect that continuing with his HEP and strengthening will only give him further gains. At this time max benefits of PT have been provided and skilled PT is no longer indicated. He is in agreement with d/c and understands importance of continuing with HEP group home. Electronically signed by: Maryse Sepulveda, PT, DPT, ATC Please sign and return to therapist. Thank you for your referral.
== END 2024-12-01 08:50 | disposition home or self-care (01) ==
LOC: HO.PTCHIC 08:00
PROVIDERS: PCP Internal Medicine; Visit Provider Physician Assistant
DX: Z47.1 Aftercare following joint replacement surgery (principal); Z96.652 Presence of left artificial knee joint
CPT/HCPCS: 97110; 97162; 97530

== ENCOUNTER 2024-12-14 15:14 | Outpatient (AMB) | payer MEDICARE, SELFPAY ==
[2024-12-14 15:18] VITALS: BP 108/62; PULSE 90; BMI 21.5
--- NOTE | 2024-12-14 15:18 | A.OFFVIS_ITS ---
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 Instructions: Resume on 09/10/24. cane As directed diltiazem HCl CD (Cardizem CD) 120 mg See Protocol PO QAM zfaqulcpwyq-cqtxdjtth-ejzhmtwr 200-62.5-25 mcg (Trelegy Ellipta) 1 inh inhalation QAM metoprolol succinate ER (Toprol XL) 75 mg (1.5 x 50 mg) PO QAM 90 days walker Folding Front wheeled walker duration 99 days walker Folding Front wheeled walker duration 99 days HPI HPI 3 month/ holter: Details: Linus is a 69-year-old male with past medical history of COPD, SVT episode treated with adenosine 10/2023, newer paroxysmal atrial flutter who presents for follow-up after recent Holter monitor. Today he reports that since his last visit he underwent a total knee replacement and had no cardiac issues that he is aware of. 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 He reports having some fatigue and is just not feeling as well as he should be. No noted heart palpitations. No chest discomfort at rest or with activity. No concerning shortness of breath, PND, orthopnea or edema. Compliant with medications. No bleeding issues with Eliquis use. He admits to history of untreated sleep apnea stating he is unable to wear at mask during sleep. is present. [facility] Medical History Nicotine dependence, cigarettes, uncomplicated Aortic stenosis Atrial flutter Cocaine abuse in remission History of cardioversion Arthritis COPD (chronic obstructive pulmonary disease) Atrial flutter NATANAEL (obstructive sleep apnea) SVT (supraventricular tachycardia) Chronic lung disease HCV (hepatitis C virus) MRSA (methicillin resistant Staphylococcus aureus) TMJ (dislocation of temporomandibular joint) Surgical History History of repair of ACL History of liver biopsy History of colonoscopy History of bronchoscopy History of right knee surgery Social History Household Members: Spouse Housing: House Are you a primary resident care technician to a significant other at home: No Do you presently have visiting nurse or other home services: No Comment: medicated Patient Tobacco Use Status: Former Tobacco user Tobacco use type: Cigarette Cigarette Packs Per Day: 0.5 Cigarettes Per Day: 2 Years Smoked: 56 Second Hand Smoke Exposure: No Substance Use Type: Crack/Cocaine service: No Review of Systems Const All systems reviewed & are unremarkable except as noted in HPI and below Reports fatigue and Reports malaise ENT Denies dizziness Card Denies chest pain, Denies chest pain at rest, Denies chest pain with activity, Denies rapid heart rate, Denies pedal edema, Denies edema, Denies leg edema, Denies lightheadedness, Denies palpitations, Denies dyspnea, Denies dyspnea on exertion and Denies orthopnea Resp Denies cough, Denies dyspnea and Denies dyspnea on exertion GI Denies hematochezia and Denies change in stool character Musc Denies abnormal gait, Reports limited range of motion, Reports muscle cramps, Denies muscle weakness, Denies numbness, Denies radiating pain into limb, Denies stiffness and Denies tingling Neuro Denies abnormal gait, Denies dizziness, Denies numbness and Denies tingling Endo Reports fatigue and Denies palpitations Physical Exam Vital Signs: Last Vital Signs Pulse 90 12/14/24 15:18 BP 108/62 12/14/24 15:18 BMI result Body Mass Index 21.5 Const General: cooperative, healthy appearing, comfortable and no acute distress Orientation/consciousness: patient oriented x3 Neck Neck: Yes normal visual inspection Resp Effort & Inspection: normal respiratory effort Auscultation: clear to auscultation bilaterally, no rales, no rhonchi and no wheezes Cardio Jugular venous distension: no JVD Rate: regular rate Rhythm: abnormal rhythm Heart sounds: S1 normal heart sound present, S2 normal heart sound present, no gallops, no murmurs and no rubs Neuro General: patient oriented x3 Extrem General: No no pedal edema and No calf tenderness Psych Appearance: grossly normal Mental Status: mental status grossly normal Speech and movement: Normal speech and movement present Office Procedures EKG Details: Today, read by me, atrial flutter, rate 90, QTC 442 milliseconds [id number], Complete Assessment & Plan Assessment & Plan (1) Atrial flutter: Code(s): I48.92 - Unspecified atrial flutter Category: Medical Qualifiers: Atrial flutter type: typical Qualified Code(s): I48.3 - Typical atrial flutter Plan: Newer finding of paroxysmal atrial flutter, with treatment goal for rhythm control. Echocardiogram 07/06/2024 showed EF greater than 70%, mild aortic stenosis. On last visit, 07/24/2024 his EKG showed sinus rhythm, rate 74. An outpatient Holter monitor was 08/06/2024, strips reviewed by me and shows atrial fib/ flutter 100% of the time, average rate 94 beats per minute. He is on diltiazem CD 120 mg daily and metoprolol XL 50 mg daily. His metoprolol dose was increased to 75 mg daily. He is on Eliquis for anticoagulation with CHADS- VASc score of 2. EKG done today is showing atrial flutter, rate 90. Currently reports some fatigue and malaise. Unable to further titrate current medications due to blood pressure 108/62. Discussed possible antiarrhythmic use, will review with Dr. Valdivia. Discuss possible ablation and he is interested. Will refer to [facility] electrophysiology for evaluation and treatment. No med changes made at this time. Cardiology follow-up 3 months, sooner if needed (2) Aortic stenosis: Code(s): I35.0 - Nonrheumatic aortic (valve) stenosis Category: Medical Plan: Recent echo showing mild aortic stenosis. Will need to follow with periodic echoes. Orders: Referrals Cardiac Electrophysiology Referral I48.3 - Typical atrial flutter Coding Level of Care Code Est Pt Level 4 (15725) Complex EM visit Add On G2211 Diagnoses Typical atrial flutter I48.3 Atrial flutter type: typical Aortic stenosis I35.0 CPT Codes EKG - CPT: 03681-[id number], Complete ([id number]) Time Spent (min) 32
--- OUTSIDE RECORDS SUMMARY | 2024-12-14 18:32 | XMS_ITS | Clinical Summary ---
Author Organization [facility] Address [address] [place] [address] Phone Care Team Providers Care Bureau Director Name Role Phone Flor Chandra MD [...] this topic Insurance [employer] Care Teams Bureau Director Relationship Specialty Start Date End Date Flor Chandra MD [address] [place] [address] PCP - General 02/29/20
== END 2024-12-14 16:02 | disposition home or self-care (01) ==
LOC: HO.HCS 15:15
PROVIDERS: Visit Provider Nurse Practitioner Family
DX: I48.3 Typical atrial flutter (principal); I35.0 Nonrheumatic aortic (valve) stenosis
CPT/HCPCS: 93010; 99214; G2211

== ENCOUNTER → 2024-12-14 15:14 | Outpatient (BNVA) | payer MEDICARE, SELFPAY | PROVIDERS: Visit Provider Nurse Practitioner Family | DX: I48.3 Typical atrial flutter (principal); I35.0 Nonrheumatic aortic (valve) stenosis; Z79.01 Long term (current) use of anticoagulants; Z87.891 Personal history of nicotine dependence | CPT/HCPCS: 93005; 99212 ==

== ENCOUNTER 2024-12-25 15:23 | Outpatient (REF) | payer MEDICARE, SELFPAY ==
--- NOTE | ~2024-12-25 | CT_ITS ---
EXAMINATION: CT LUNG SCREENING HISTORY: F17.210 - Nicotine dependence, cigarettes, uncomplicated TECHNIQUE: Low dose axial images were obtained from the sternal notch to upper abdomen without IV contrast per standard departmental protocol. Sagittal and coronal reformatted images were also obtained and reviewed. One or more of the following techniques was used for dose reduction: Automated exposure control, adjustment of the mA and/or kV according to patient size, use of iterative reconstruction technique. DLP: 72 mGy-cm COMPARISON: Comparison is made with the prior examination dated 11/27/2022. FINDINGS: Lung nodules: Again seen is a 6 mm nodule in the left lower lobe (series 4, image 122). This is unchanged in size. No new pulmonary nodules are identified. There is linear scarring in the lingula. Emphysema: moderate Coronary Calcification: moderate Aortic Arch Calcification: mild Potentially Significant Incidentals : none Additional Chest Findings: There is no pleural or pericardial effusion. No mediastinal or axillary lymphadenopathy is identified. There is a small hiatal hernia. Visualized upper abdomen: The visualized portions of the liver, spleen, and adrenals have an unremarkable unenhanced appearance. CT/CT lung screening IMPRESSION: No suspicious pulmonary nodules are identified. LUNG-RADS ASSESSMENT: Lung-RADS 2: Benign MANAGEMENT: Continue annual screening with LDCT in 12 months Category S: N/A Electronically signed by: Dontrell Moran MD 12/25/2024 03:51 PM [facility]
== END 2024-12-25 15:24 | disposition home or self-care (01) ==
LOC: HO.CT 15:23
PROVIDERS: Visit Provider Physician Assistant Medical
DX: Z12.2 Encounter for screening for malignant neoplasm of respiratory organs (principal); F17.210 Nicotine dependence, cigarettes, uncomplicated
CPT/HCPCS: 71271

== ENCOUNTER → 2024-12-25 15:25 | Outpatient (BNV) | payer MEDICARE, SELFPAY | PROVIDERS: Visit Provider Radiology Diagnostic Radiology | DX: Z12.2 Encounter for screening for malignant neoplasm of respiratory organs (principal); Z87.891 Personal history of nicotine dependence | CPT/HCPCS: 71271 ==